=== PATIENT | male | born 1955 | race Caucasian/White ===

== ENCOUNTER 2020-11-15 14:39 | Inpatient (IN) | payer MEDICARE, SELFPAY ==
[2020-11-15] VITALS (19 sets, daily range): BP systolic 124–172; BP diastolic 77–96; PULSE 80–109; RESP 16–36; TEMP 36.6–38.9; O2SAT 79–96; BMI 28.8; BMI 29.2
--- NOTE | 2020-11-15 15:04 | RAD_ITS ---
STUDY: X-RAY CHEST REASON FOR EXAM: Male, 65 years old. CHEST PAIN cough TECHNIQUE: XR Chest 1 View COMPARISON: Prior comparison studies are not available for review at this time. FINDINGS: There is no demonstrated pleural abnormality. There are multiple overlying cardiac monitoring leads. Normal size heart. Normal mediastinum and josselyn. Normal visualized pulmonary arteries. There is atherosclerotic calcification of the aortic arch with tortuosity. There are diffuse degenerative changes of the visualized thoracic spine. There is degenerative osteoarthritis of the bilateral shoulders. There is no demonstrated abnormality of the visualized soft tissue structures of the upper abdomen. RAD/Chest 1 View (Portable) IMPRESSION: Bilateral pneumonia. Electronically Signed: Kostas Ibarra MD at 16:02 EDT , Service support ,
--- NOTE | 2020-11-15 15:04 | EKG12_ITS ---
Test Reason : Blood Pressure : / mmHG Vent. Rate : 098 BPM Atrial Rate : 098 BPM P-R Int : 148 ms QRS Dur : 098 ms QT Int : 364 ms P-R-T Axes : 022 -21 002 degrees QTc Int : 464 ms Sinus rhythm with Premature atrial complexes Voltage criteria for left ventricular hypertrophy Abnormal ECG Confirmed by HENNY KIM, VIVIAN ([id number]), editor farm journal TIMBO MCCLURE ([id number]) on 11/17/2020 10:35:58 AM Referred By: MICHAEL Confirmed By:VIVIAN INMAN MD
--- NOTE | 2020-11-15 15:05 | ED.VIS.DYS ---
HPI History of Present Illness Chief Complaint: Shortness of Breath Informant: patient and family Narrative Narrative: 65-year-old male brought to the emergency department with family out of concerns for COVID-19. Patient states that most everybody in his office has recently contracted COVID-19. He states that about 9 to 10 days ago he woke up feeling sick. States he spent most of last weekend in bed. He notes that food tasted horrible to him and he has not had much to eat or drink. He notes cough shortness of breath diarrhea nausea. He notes myalgias and headache. He was not vaccinated against COVID-19. [facility] Medical History (Updated 11/15/20 @ 17:[address] Dean Brown DO) Type 2 diabetes mellitus Home Medications glimepiride 4 mg PO DAILY 11/15/20 [History Last Taken Unknown] metformin 1,000 mg PO BID 11/15/20 [History Last Taken Unknown] Allergy/AdvReac Type Severity Reaction Status Date / Time No Known Allergies Allergy Verified 11/15/20 14:42 no surgical history Social History (Updated 11/15/20 @ 15:[address] Dean Brown, ) Smoking Status: Never smoker substance use type: does not use ROS ROS ED ROS Narrative Generalized fatigue dizziness Constitutional Constitutional ED: Reports sweats; Denies chills or weight loss Eyes Eyes: Denies change in vision or diplopia ENT ENT ED: Reports rhinorrhea and sore throat; Denies ear pain Cardiovascular Cardiovascular: Denies chest pain, orthopnea, palpitations or racing heartbeat Respiratory/Chest Respiratory/Chest: Reports cough, dyspnea and dyspnea on exertion; Denies orthopnea Gastrointestinal Gastrointestinal: Reports diarrhea and nausea; Denies abdominal pain or vomiting Genitourinary Genitourinary ED: Denies dysuria, hematuria or urinary frequency Musculoskeletal Musculoskeletal: Reports myalgias; Denies arthralgias Integumentary Denies abscess or rash Neurologic Neurologic: Reports headache(s); Denies weakness Psychiatric Psychiatric: Denies anxiety, depression, suicidal ideation or suicidal thoughts Endocrine Endocrinology: Denies polydipsia, polyphagia or polyuria Allergic/Immunologic Allergic/Immunologic ED: Denies mouth swelling, tongue swelling or urticaria EXAM Physical Exam Const Vital Signs: 11/15/20 14:39 11/15/20 15:37 11/15/20 15:41 Temperature 98.6 F 97.9 F Temperature Source Temporal Temporal Pulse Rate 91 96 Respiratory Rate 16 21 H Respiratory Effort Non-Labored Respiratory Depth Shallow Respiratory Pattern Tachypnea Blood Pressure 124/78 H 132/77 H Blood Pressure Mean 93 95 Pulse Ox 83 92 Oxygen Delivery Method Room Air Nasal Cannula Nasal Cannula Oxygen Flow Rate (L/min) 3 3 Fraction of Inspired Oxygen (FIO2) 11/15/20 16:00 11/15/20 17:00 11/15/20 17:30 Temperature 98 F 98.4 F Temperature Source Temporal Temporal Pulse Rate 95 97 101 H Respiratory Rate 21 H 32 H 27 H Respiratory Effort Respiratory Depth Respiratory Pattern Blood Pressure 133/78 H 136/80 H Blood Pressure Mean 96 98 Pulse Ox 93 90 87 Oxygen Delivery Method Nasal Cannula Nasal Cannula Nasal Cannula Oxygen Flow Rate (L/min) 4 4 Fraction of Inspired Oxygen (FIO2) 6 11/15/20 17:32 11/15/20 17:40 Temperature 100.1 F H Temperature Source Temporal Pulse Rate 100 98 Respiratory Rate 23 H 31 H Respiratory Effort Respiratory Depth Respiratory Pattern Blood Pressure 136/80 H Blood Pressure Mean 98 Pulse Ox 89 89 Oxygen Delivery Method Nasal Cannula Nasal Cannula Oxygen Flow Rate (L/min) 5 8 Fraction of Inspired Oxygen (FIO2) Positive well nourished and well developed General Appearance ED: well developed HEENT Reports normocephalic, head/scalp atraumatic and moist mucous membranes Eyes PERRL and EOMs intact bilaterally Neck no lymphadenopathy, supple and no JVD Resp clear to auscultation bilaterally Resp Narrative: Patient is slightly tachypneic. Cardio regular rate, regular rhythm and no murmurs GI normal to inspection, nondistended, normoactive bowel sounds and non-tender Palpation: soft Back/Spine no CVA tenderness and normal ROM Extremity normal to inspection General Extremety ED: Negative for edema General Extremity: Negative for edema Neuro oriented x3 and CN's II-XII intact bilaterally Sensorium / Orientation: alert Motor Exam: strength 5/5 throughout Psych mental status grossly normal Mood & Affect: Negative for depressed or tearful Skin no rashes or lesions noted and no wounds MDM MDM MDM Narrative Medical decision making narrative: White count 6.9. D-dimer elevated 1.02. His creatinine elevated off baseline at 1.41 with a BUN of 31. Troponin of 22. COVID-19 test is positive. CTA of the chest demonstrates diffuse bilateral pneumonia but no pulmonary embolism. Patient is satting 92% on 3 L. He received a dose of Decadron and a small fluid bolus. Plan will be admission into the hospital While awaiting admission the patient began to have desaturated stations. On 5 L he was only at 87% with good waveform. This in part is due to his disease process but also he seems to have a bit of poor tidal volume when at rest. He was switched over to high flow nasal cannula. Hospitalist was updated. Lab Data Attestation: I reviewed the patient's lab results. Labs: Laboratory Results - last 24 hr 11/15/20 11/15/20 11/15/20 15:20 15:20 15:20 WBC 6.9 RBC 4.80 Hgb 14.3 Hct 41.3 MCV 86.0 MCH 29.8 MCHC 34.6 RDW Std Deviation 40.7 RDW Coeff of Moses 12.8 Plt Count 208 MPV 10.2 Immature Gran % (Auto) 0.700 Neut % (Auto) 78.7 H Lymph % (Auto) 11.9 L [place] % (Auto) 8.3 Eos % (Auto) 0.1 Baso % (Auto) 0.3 Absolute Neuts (auto) 5.4 Absolute Lymphs (auto) 0.82 L Nucleated RBC % 0 Differential Comment SCANNED Platelet Estimate ADEQUATE RBC Morphology NORM C+C D-Dimer Quant (PE/DVT) 1.02 H* Sodium 134 L Potassium 4.2 Chloride 99 Carbon Dioxide 24.0 Anion Gap 11 BUN 31 H Creatinine 1.41 H Estim Creat Clear Calc 51.88 Est GFR (MDRD) Af Amer 65 Est GFR (MDRD) Non-Af 54 L BUN/Creatinine Ratio 22.0 H Glucose 176 H Lactic Acid Calcium 8.5 Total Bilirubin 0.70 AST 74 H ALT 39 Alkaline Phosphatase 47 Troponin I High Sens 22 Total Protein 7.8 Albumin 3.1 L Globulin 4.7 H Albumin/Globulin Ratio 0.7 L 11/15/20 15:20 WBC RBC Hgb Hct MCV MCH MCHC RDW Std Deviation RDW Coeff of Moses Plt Count MPV Immature Gran % (Auto) Neut % (Auto) Lymph % (Auto) [place] % (Auto) Eos % (Auto) Baso % (Auto) Absolute Neuts (auto) Absolute Lymphs (auto) Nucleated RBC % Differential Comment Platelet Estimate RBC Morphology D-Dimer Quant (PE/DVT) Sodium Potassium Chloride Carbon Dioxide Anion Gap BUN Creatinine Estim Creat Clear Calc Est GFR (MDRD) Af Amer Est GFR (MDRD) Non-Af BUN/Creatinine Ratio Glucose Lactic Acid 1.6 Calcium Total Bilirubin AST ALT Alkaline Phosphatase Troponin I High Sens Total Protein Albumin Globulin Albumin/Globulin Ratio Radiography Diagnostic Testing: Radiology Impression Chest X-Ray 11/15/20 15:04 IMPRESSION: Bilateral pneumonia. Electronically Signed: Kostas Ibarra MD at 16:02 EDT , Service support , Chest CTA 11/15/20 16:10 IMPRESSION: No demonstrated pulmonary embolism or arterial dissection. There is bilateral pneumonia. Electronically Signed: Kostas Ibarra MD at 16:45 EDT , Service support , EKG Initial EKG: Attestation: I personally reviewed and interpreted this EKG as follows: Comments: Sinus rhythm with a ventricular rate of 98 bpm. Discharge Plan Dx/Rx/DC Orders Clinical Impression: Acute hypoxemic respiratory failure due to COVID-19 Disposition Disposition: Acute Care [facility]
[2020-11-15 15:33] LABS: Absolute Lymphocyte Count 0.82 X10^3/uL (0.83-4.51); Absolute Neutrophil Count 5.4 X10^3/uL (2.0-7.7); Basophil# 0.02 X10^3/uL; Basophil% 0.3 % (0-1); Eosinophil# 0.01 X10^3/uL; Eosinophils% 0.1 % (0-5); Hematocrit 41.3 % (40-54); Hemoglobin 14.3 g/dL (13.0-16.5); Lymphocyte # 0.82 X10^3/ul (0.83-4.51); Lymphocyte % 11.9 % (19-41); Mean Corp Hgb Conc 34.6 g/dL (32-36); Mean Corpuscular Hgb 29.8 pg (27.0-32.0); Mean Platelet Vol. 10.2 fl (6.2-12.0); Monocyte# 0.57 X10^3/uL; Monocyte% 8.3 % (0-10); NRBC Flagged by Analyzer 0 % (0-5); Neutrophil % 78.7 % (47-70); POSITIVE COUNT YES; Platelet Count 208 K/mm3 (150-450); RBC Distribution Width CV 12.8 % (11.6-14.6); RBC Distribution Width SD 40.7 fl (35.1-43.9); White Blood Count 6.9 K/mm3 (4.4-11.0)
[2020-11-15 15:39] LABS: Differential Indicated SCAN CRITERIA MET
[2020-11-15 15:58] LABS: ALB/GLOB Ratio 0.7 RATIO (0.9-2.4); AST(SGOT) 74 U/L (15-37); Alanine Aminotransfer ALT/SGPT 39 U/L (16-61); Albumin, Serum 3.1 g/dL (3.2-5.0); Alkaline Phosphatase 47 U/L (45-117); Anion Gap 11 (5-15); BUN 31 mg/dL (7-18); Calcium,Total 8.5 mg/dL (8.5-10.1); Chloride 99 mmol/L (98-107); Creatinine, Serum 1.41 mg/dL (0.70-1.30); EST Glomerular Filtration Rate 54 mL/min (>60); Est Glom Filt Rate - Afr Amer 65 mL/min (>60); Estimated Creatinine Clearance 51.88 ml/min; Globulin 4.7 g/dL (2.2-4.2); Glucose 176 mg/dL (74-106); Potassium 4.2 mmol/L (3.5-5.1); Protein, Total 7.8 g/dL (6.4-8.2); Sodium Level 134 mmol/L (136-145); Troponin-I HS 22 pg/mL (3.0-78.0)
[2020-11-15 16:00] LABS: Lactic Acid 1.6 mmol/L (0.4-1.9)
[2020-11-15 16:08] LABS: D-Dimer Quantitative (DVT/PE) 1.02 FEU/ug/m (0.27-0.49)
--- NOTE | 2020-11-15 16:10 | CT_ITS ---
STUDY: CTA CHEST REASON FOR EXAM: Male, 65 years old. covid 19 pulmonary embolism. Pneumonia RADIATION DOSAGE (If Supplied By Facility): CTDIvol = ( 12.15 ) mGy, DLP = ( 487.95 ) mGycm TECHNIQUE: The examination was performed with and wo the intravenous administration of IV 100mL Isovue-370. Post-processing of the angiographic images was performed, with multiplanar reformation and 3D reconstruction. Individualized dose optimization techniques were used for this CT. COMPARISON: None. FINDINGS: Normal enhancement of the main pulmonary artery and right and left pulmonary arteries. Normal enhancement of the bilateral peripheral pulmonary arteries. There is no demonstrated pulmonary embolism. Normal thoracic aorta and visualized great vessels. There is no demonstrated aortic dissection. Normal heart and pericardium. Normal mediastinum. Normal hilar regions. Normal visualized trachea and bronchi. Bilateral pneumonia. Normal pulmonary parenchyma. There is No pneumothorax Normal chest wall structures. There are degenerative changes of thoracic spine. Normal visualized upper abdomen. CT/CTA Chest W/WO Contrast IMPRESSION: No demonstrated pulmonary embolism or arterial dissection. There is bilateral pneumonia. Electronically Signed: Kostas Ibarra MD at 16:45 EDT , Service support ,
[2020-11-15 16:16] LABS: Differential Comment SCANNED; Platelet Estimate ADEQUATE (ADEQ); Red Cell Morphology NORM C+C NORMAL (NORM C&C)
[2020-11-15] MEDS: dexAMETHasone 4 MG Tablet 6 MG PO (16:41)
--- NOTE | 2020-11-15 20:14 | HP.PCM_ITS ---
HPI - General General Date of Admission: 11/15/20 HPI Narrative FARRUKH YEE, is a 65 M who presents shortness of breath, cough, exertional dyspnea and easy fatigability. Found to be COVID-19 positive. Over the several hours has been in the emergency department and has been requiring increasing oxygen supplementation. Initially required 3 L and at that time was saturating at 92% now requiring 11 L and saturating at 88 to 89%. Several family members with COVID-19 infection as well. [facility] Medical History (Updated 11/15/20 @ 20:[address] Tabby Escobedo MD) Type 2 diabetes mellitus Home Medications glimepiride 4 mg PO DAILY 11/15/20 [History Last Taken Unknown] metformin 1,000 mg PO BID 11/15/20 [History Last Taken Unknown] Allergy/AdvReac Type Severity Reaction Status Date / Time No Known Allergies Allergy Verified 11/15/20 14:42 Social History (Updated 11/15/20 @ 15:[address] Dean Brown, DO) Smoking Status: Never smoker substance use type: does not use ROS ROS Narrative Denies any chest pain, denies any lower extremity swelling. All other systems reviewed and essentially negative. Vital Signs Vital Signs Vital Signs: 11/15/20 14:39 11/15/20 15:37 11/15/20 15:41 Temperature 37.0 C 36.6 C Temperature Source Temporal Temporal Pulse Rate 91 96 Respiratory Rate 16 21 H Respiratory Effort Non-Labored Respiratory Depth Shallow Respiratory Pattern Tachypnea Blood Pressure 124/78 H 132/77 H Blood Pressure Mean 93 95 Pulse Ox 83 92 Oxygen Delivery Method Room Air Nasal Cannula Nasal Cannula Oxygen Flow Rate (L/min) 3 3 Fraction of Inspired Oxygen (FIO2) 11/15/20 16:00 11/15/20 17:00 11/15/20 17:30 Temperature 36.6 C 36.9 C Temperature Source Temporal Temporal Pulse Rate 95 97 101 H Respiratory Rate 21 H 32 H 27 H Respiratory Effort Respiratory Depth Respiratory Pattern Blood Pressure 133/78 H 136/80 H Blood Pressure Mean 96 98 Pulse Ox 93 90 87 Oxygen Delivery Method Nasal Cannula Nasal Cannula Nasal Cannula Oxygen Flow Rate (L/min) 4 4 Fraction of Inspired Oxygen (FIO2) 6 11/15/20 17:32 11/15/20 17:40 11/15/20 17:50 Temperature 37.8 C H Temperature Source Temporal Pulse Rate 100 98 101 H Respiratory Rate 23 H 31 H 27 H Respiratory Effort Respiratory Depth Respiratory Pattern Blood Pressure 136/80 H Blood Pressure Mean 98 Pulse Ox 89 89 92 Oxygen Delivery Method Nasal Cannula Nasal Cannula Nasal Cannula Oxygen Flow Rate (L/min) 5 8 9 Fraction of Inspired Oxygen (FIO2) 11/15/20 18:20 11/15/20 18:40 11/15/20 18:53 Temperature Temperature Source Pulse Rate 109 H 100 104 H Respiratory Rate 36 H 27 H 26 H Respiratory Effort Respiratory Depth Respiratory Pattern Blood Pressure Blood Pressure Mean Pulse Ox 79 91 89 Oxygen Delivery Method Nasal Cannula Nasal Cannula Nasal Cannula Oxygen Flow Rate (L/min) 9 15 11 Fraction of Inspired Oxygen (FIO2) 11/15/20 19:15 11/15/20 19:20 Temperature Temperature Source Pulse Rate 103 H Respiratory Rate 22 H Respiratory Effort Respiratory Depth Respiratory Pattern Blood Pressure Blood Pressure Mean Pulse Ox 90 94 Oxygen Delivery Method Nasal Cannula Oxygen Flow Rate (L/min) 15 Fraction of Inspired Oxygen (FIO2) 88 Weight Weight: 86.183 kg Body Mass Index (BMI) 28.8 Physical Exam Narrative General. Middle-aged man, not significantly acutely ill-appearing, anxious appearing, dyspneic at rest HEENT. Oral mucosa slightly dry, no conjunctival pallor. Neck. Supple. Heart. First and second heart sounds heard no murmurs. Lungs. Slightly harsh breath sounds, bronchial breath sounds and what appears to be pleural rubs as well. Abdomen. Moves with respiration, nontender. Extremities. No pedal edema. PHYSICIANS ASSISTANT. Conscious and alert, oriented x3. Cranial nerves II through XII grossly intact. Skin. No rash noted Results Lab / Micro Data Result Diagrams: 11/15/20 15:20 11/15/20 15:20 Labs: Laboratory Results - last 24 hr 11/15/20 15:20: WBC 6.9, RBC 4.80, Hgb 14.3, Hct 41.3, MCV 86.0, MCH 29.8, MCHC 34.6, RDW Std Deviation 40.7, RDW Coeff of Moses 12.8, Plt Count 208, MPV 10.2, Immature Gran % (Auto) 0.700, Neut % (Auto) 78.7 H, Lymph % (Auto) 11.9 L, [place] % (Auto) 8.3, Eos % (Auto) 0.1, Baso % (Auto) 0.3, Absolute Neuts (auto) 5.4, Absolute Lymphs (auto) 0.82 L, Nucleated RBC % 0, Differential Comment SCANNED, Platelet Estimate ADEQUATE, RBC Morphology NORM C+C 11/15/20 15:20: D-Dimer Quant (PE/DVT) 1.02 H* 11/15/20 15:20: Sodium 134 L, Potassium 4.2, Chloride 99, Carbon Dioxide 24.0, Anion Gap 11, BUN 31 H, Creatinine 1.41 H, Estim Creat Clear Calc 51.88, Est GFR (MDRD) Af Amer 65, Est GFR (MDRD) Non-Af 54 L, BUN/Creatinine Ratio 22.0 H, Glucose 176 H, Calcium 8.5, Total Bilirubin 0.70, AST 74 H, ALT 39, Alkaline Phosphatase 47, Troponin I High Sens 22, Total Protein 7.8, Albumin 3.1 L, Globulin 4.7 H, Albumin/Globulin Ratio 0.7 L 11/15/20 15:20: Lactic Acid 1.6 Micro: Microbiology 11/15/20 15:40 Nasal Secretion SARS-CoV-2 Antigen (Rapid) - Final SARS-CoV-2 (COVID 19) Radiology Impression Chest X-Ray 11/15/20 15:04 IMPRESSION: Bilateral pneumonia. Electronically Signed: Kostas Ibarra MD at 16:02 EDT , Service support , Chest CTA 11/15/20 16:10 IMPRESSION: No demonstrated pulmonary embolism or arterial dissection. There is bilateral pneumonia. Electronically Signed: Kostas Ibarra MD at 16:45 EDT , Service support , Assessment & Plan Assessment/Plan (1) Pneumonia due to COVID-19 virus: PLAN: Will start on remdesivir and dexamethasone. Consult infectious disease. Likely would benefit from baricitinib. Placed on telemetry. Monitor closely. (2) Acute hypoxemic respiratory failure due to COVID-19: PLAN: Rapidly worsening respiratory failure. Will start on CPAP/BiPAP or airvo. (3) Type 2 diabetes mellitus: PLAN: Continue Metformin. Hold on glimepiride. Start on insulin sliding scale. Insulin requirements likely to increase with use of steroids. Monitor with Accu-Cheks before meals and at bedtime. Charges/Coding Visit Charges Inpatient E&M: 69846 Init Hosp L3
[2020-11-15] MEDS: Acetaminophen 325 MG Tablet 650 MG PO (20:34)
[2020-11-15 21:15] LABS: Procalcitonin 0.32 ng/mL (0.00-0.09)
[2020-11-15] MEDS: metFORMIN HCl 1,000 MG Tablet 1000 MG PO (21:49)
[2020-11-15] MEDS: 0.9% Saline Lock 10 ML Syringe IV (21:49)
[2020-11-15] MEDS: Famotidine 20 MG Tablet PO (21:49)
[2020-11-15 22:21] LABS: Bedside Glucose 206 mg/dL (70-110)
--- NOTE | 2020-11-15 23:56 | PCS.PANDOC ---
PANDEMIC DOCUMENTATION INITIATED: Date: 10/13/2020 Time: 190
[2020-11-16] VITALS (16 sets, daily range): BP systolic 125–157; BP diastolic 65–94; PULSE 76–97; RESP 20–28; TEMP 36.1–37.1; O2SAT 90–96
[2020-11-16 06:24] LABS: Absolute Lymphocyte Count 0.83 X10^3/uL (0.83-4.51); Absolute Neutrophil Count 7.7 X10^3/uL (2.0-7.7); Basophil# 0.02 X10^3/uL; Basophil% 0.2 % (0-1); Hematocrit 42.8 % (40-54); Hemoglobin 14.6 g/dL (13.0-16.5); Lymphocyte # 0.83 X10^3/ul (0.83-4.51); Mean Corp Hgb Conc 34.1 g/dL (32-36); Mean Corpuscular Hgb 29.6 pg (27.0-32.0); Mean Corpuscular Volume 86.6 fL (80-94); Mean Platelet Vol. 10.1 fl (6.2-12.0); Monocyte# 0.56 X10^3/uL; Monocyte% 6.1 % (0-10); NRBC Flagged by Analyzer 0 % (0-5); Neutrophil # 7.68 X10^3/uL (2.7-7.7); Neutrophil % 83.6 % (47-70); Platelet Count 263 K/mm3 (150-450); Red Blood Count 4.94 M/mm3 (4.6-6.2); White Blood Count 9.2 K/mm3 (4.4-11.0)
[2020-11-16] MEDS: Insulin Lispro 100 UNIT/ML INSULN.PEN SC ×3 (06:37→17:42)
[2020-11-16 06:56] LABS: Bedside Glucose 262 mg/dL (70-110)
[2020-11-16 07:01] LABS: International Normalized Ratio 1.2; Prothrombin Time (Protime)PT. 14.4 SECONDS (11.7-14.9)
[2020-11-16 07:16] LABS: D-Dimer Quantitative (DVT/PE) 1.07 FEU/ug/m (0.27-0.49)
[2020-11-16 07:41] LABS: ALB/GLOB Ratio 0.6 RATIO (0.9-2.4); AST(SGOT) 65 U/L (15-37); Alanine Aminotransfer ALT/SGPT 39 U/L (16-61); Albumin, Serum 2.6 g/dL (3.2-5.0); Alkaline Phosphatase 46 U/L (45-117); Anion Gap 9 (5-15); BUN 29 mg/dL (7-18); Calcium,Total 8.6 mg/dL (8.5-10.1); Chloride 104 mmol/L (98-107); Creatinine, Serum 1.16 mg/dL (0.70-1.30); EST Glomerular Filtration Rate 68 mL/min (>60); Est Glom Filt Rate - Afr Amer 82 mL/min (>60); Estimated Creatinine Clearance 63.06 ml/min; Ferritin 4416 ng/mL (26-388); Globulin 4.7 g/dL (2.2-4.2); Glucose 279 mg/dL (74-106); LDH 949 U/L (87-241); Potassium 4.2 mmol/L (3.5-5.1); Protein, Total 7.3 g/dL (6.4-8.2); Sodium Level 137 mmol/L (136-145)
[2020-11-16] MEDS: Famotidine 20 MG Tablet PO ×2 (09:42→21:08)
[2020-11-16] MEDS: Enoxaparin 40 MG/0.4 ML Syringe SC (09:43)
[2020-11-16] MEDS: dexAMETHasone 10 MG/ML Vial 6 MG IV (09:46)
[2020-11-16] MEDS: 0.9% Saline Lock 10 ML Syringe IV ×2 (09:47→21:08)
--- NOTE | 2020-11-16 12:43 | CON.PCM.CC_ITS ---
Assessment & Plan Assessment/Plan (1) Pneumonia due to COVID-19 virus: (2) Acute hypoxemic respiratory failure due to COVID-19: (3) Type 2 diabetes mellitus: PLAN: RECOMMENDATIONS: 1. Consult ID for possible PITA therapy 2. Add insulin to help with hyperglycemia 3. Diuresis as tolerated 4. Encourage prone positioning 5. Monitor LFT while on Remdesivir and potential PITA therapy IMPRESSIONS: 1. Acute hypoxic respiratory failure secondary to COVID-19 Patient with rapidly escalating oxygen requirements. Did confirm the pa halina is a full code. Patient is appropriately on remdesivir and Decadron therapy. Patient may be a candidate for PITA therapy, but this has to be ordered by infectious disease. They are consulted. Continue to support oxygen as necessary. Prone positioning will be helpful. Possible addition of codeine if patient requires BiPAP therapy in an effort to avoid pneumomediastinum. Will need to monitor LFTs while on Remdesivir. 2. Diabetes mellitus/overweight/unvaccinated status Complicates care, management, recovery and prognosis. We will have to watch blood sugars closely. Clinical suspicion that basal insulin will be needed in the next 24 to 48 hours. HPI Consult Data Date of Consult: 11/16/20 HPI Narrative HPI Narrative: FARRUKH YEE is a 65 M, with past medical history listed below, who presents to [facility] on 11/15[facility] secondary to concerns for COVID-19. Patient states that he has been feeling sick for approximately 8 days prior to presentation. Patient states that he has had fevers, body aches and some mild nausea with vomiting in the morning. Patient also stated that food had changed in taste. Patient had had cough, shortness of breath and loose bowel movements. Patient has not been vaccinated against COVID-19. Patient denies any previous pulmonary or cardiac history and states he is compliant with his diabetes medications. In the ER, patient was afebrile, but tachypneic at 32 breaths/min. Patient did require 8 L nasal cannula to maintain saturations. Laboratory data was relatively unremarkable except for a mildly elevated D-dimer of 1.02, creatinine of 1.4, glucose of 176, AST of 74 and a white blood cell count of 6.9 with 11.9% eosinophils. Chest x-ray showed bilateral pneumonia and this was followed up with a CTA of the chest showing bilateral groundglass opacities with no PE. Patient was given a small fluid bolus and a dose of Decadron and admitted to the hospital. Since being on MedSurg, patient has been advanced to 80% by Airvo. Patient states that he feels subjectively improved from presentation. Patient is still having some body aches, but dyspnea has resolved. Patient has had some loose bowel movements, but no nausea or vomiting. Patient does not report any previous pulmonary or cardiac history. Patient does follow with his PCP regularly. 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 Patient estimates he has had symptoms for approximately 8 days. Review of systems otherwise negative from a constitutional, HEENT, respiratory, cardiovascular, GI, genitourinary, musculoskeletal, skin, neurologic, psychiatric and hematologic system unless stated above. [facility] Medical History Type 2 diabetes mellitus Home Medications glimepiride 4 mg PO DAILY 11/15/20 [History Last Taken 11/13/20] metformin 1,000 mg PO BID 11/15/20 [History Last Taken 11/15/20] Allergy/AdvReac Type Severity Reaction Status Date / Time No Known Allergies Allergy Verified 11/15/20 14:42 Social History Smoking Status: Never smoker substance use type: does not use ROS ROS Narrative See HPI Physical Exam Const alert and oriented x3 Constitutional Narrative: Lying in the prone position with a Airvo in place General Appearance: cooperative, well developed, in distress Positive for mild and anxious Nutritional Appearance: overweight HEENT normocephalic, head/scalp atraumatic and moist oral mucous membranes Eyes PERRL and EOMs intact bilaterally Neck full ROM and no lymphadenopathy Chest inspection of chest normal Chest: symmetrical chest wall rise; Negative for crepitus Resp no use of accessory muscles Resp Narrative: Mild conversational dyspnea Auscultation: diminished lung sounds; Negative for rales, rhonchi or wheezes Percussion: Negative for dullness Cardio regular rate, regular rhythm, S1 normal heart sound, S2 normal heart sound, no murmurs, no rub and no gallops GI normal to inspection, nondistended, normoactive bowel sounds no CVA tenderness Extremity no clubbing, cyanosis or edema Skin no rashes or lesions noted Neuro oriented x3, CN's II-XII intact bilaterally, moves all extremities and no focal motor deficits Psych cooperative and affect normal Lab / Micro Data Result Diagrams: 11/16/20 04:59 11/16/20 04:59 Labs: Laboratory Results - last 24 hr 11/15/20 15:20: WBC 6.9, RBC 4.80, Hgb 14.3, Hct 41.3, MCV 86.0, MCH 29.8, MCHC 34.6, RDW Std Deviation 40.7, RDW Coeff of Moses 12.8, Plt Count 208, MPV 10.2, Immature Gran % (Auto) 0.700, Neut % (Auto) 78.7 H, Lymph % (Auto) 11.9 L, [place] % (Auto) 8.3, Eos % (Auto) 0.1, Baso % (Auto) 0.3, Absolute Neuts (auto) 5.4, Absolute Lymphs (auto) 0.82 L, Nucleated RBC % 0, Differential Comment SCANNED, Platelet Estimate ADEQUATE, RBC Morphology NORM C+C 11/15/20 15:20: D-Dimer Quant (PE/DVT) 1.02 H* 11/15/20 15:20: Sodium 134 L, Potassium 4.2, Chloride 99, Carbon Dioxide 24.0, Anion Gap 11, BUN 31 H, Creatinine 1.41 H, Estim Creat Clear Calc 51.88, Est GFR (MDRD) Af Amer 65, Est GFR (MDRD) Non-Af 54 L, BUN/Creatinine Ratio 22.0 H, Glucose 176 H, Calcium 8.5, Total Bilirubin 0.70, AST 74 H, ALT 39, Alkaline Phosphatase 47, Troponin I High Sens 22, Total Protein 7.8, Albumin 3.1 L, Globulin 4.7 H, Albumin/Globulin Ratio 0.7 L 11/15/20 15:20: Lactic Acid 1.6 11/15/20 15:20: Procalcitonin 0.32 H 11/15/20 21:48: POC Glucose 206 H 11/16/20 04:59: WBC 9.2, RBC 4.94, Hgb 14.6, Hct 42.8, MCV 86.6, MCH 29.6, MCHC 34.1, RDW Std Deviation 41.0, RDW Coeff of Moses 13.0, Plt Count 263, MPV 10.1, Immature Gran % (Auto) 1.100 H, Neut % (Auto) 83.6 H, Lymph % (Auto) 9.0 L, [place] % (Auto) 6.1, Eos % (Auto) 0.0, Baso % (Auto) 0.2, Absolute Neuts (auto) 7.7, Absolute Lymphs (auto) 0.83, Nucleated RBC % 0 11/16/20 04:59: Sodium 137, Potassium 4.2, Chloride 104, Carbon Dioxide 24.0, Anion Gap 9, BUN 29 H, Creatinine 1.16, Estim Creat Clear Calc 63.06, Est GFR (MDRD) Af Amer 82, Est GFR (MDRD) Non-Af 68, BUN/Creatinine Ratio 25.0 H, Glucose 279 H, Calcium 8.6, Ferritin 4416 H, Total Bilirubin 0.60, AST 65 H, ALT 39, Alkaline Phosphatase 46, Lactate Dehydrogenase 949 H, C-React Prot Ext Range 144.00 H, Total Protein 7.3, Albumin 2.6 L, Globulin 4.7 H, Albumin/Globulin Ratio 0.6 L 11/16/20 04:59: PT 14.4, INR 1.2, D-Dimer Quant (PE/DVT) 1.07 H* 11/16/20 06:31: POC Glucose 262 H Micro: Microbiology 11/15/20 15:40 Nasal Secretion SARS-CoV-2 Antigen (Rapid) - Final SARS-CoV-2 (COVID 19) Radiology Impression Chest X-Ray 11/15/20 15:04 IMPRESSION: Bilateral pneumonia. Electronically Signed: Kostas Ibarra MD at 16:02 EDT , Service support , Chest CTA 11/15/20 16:10 IMPRESSION: No demonstrated pulmonary embolism or arterial dissection. There is bilateral pneumonia. Electronically Signed: Kostas Ibarra MD at 16:45 EDT , Service support , Charges/Coding Visit Charges Inpatient E&M: 76668 Init Hosp L3
[2020-11-16 13:20] LABS: Bedside Glucose 239 mg/dL (70-110)
--- NOTE | 2020-11-16 13:27 | PCM.PN.HOSP ---
Subjective Subjective On Airvo. Short of breath with movement. Objective Data Objective Data Vital Signs: Vital Signs Temp Pulse Resp BP Pulse Ox 36.6 C 94 20 H 157/88 H 91 11/16/20 11:58 11/16/20 11:58 11/16/20 11:58 11/16/20 11:58 11/16/20 11:58 Oxygen Flow Rate (L/min) 50 Oxygen Delivery Method Airvo Weight: 87.3 kg Body Mass Index (BMI) 29.2 Intake & Output: Intake and Output for Last 24 Hours 11/14/20 11/15/20 11/16/20 23:59 23:59 23:59 Intake Total 750 / 750 400 / 400 Output Total 300 / 300 250 / 250 Balance 450 / 450 150 / 150 Lab / Micro Data Result Diagrams: 11/16/20 04:59 11/16/20 04:59 Labs: Laboratory Results - last 24 hr 11/15/20 15:20: WBC 6.9, RBC 4.80, Hgb 14.3, Hct 41.3, MCV 86.0, MCH 29.8, MCHC 34.6, RDW Std Deviation 40.7, RDW Coeff of Moses 12.8, Plt Count 208, MPV 10.2, Immature Gran % (Auto) 0.700, Neut % (Auto) 78.7 H, Lymph % (Auto) 11.9 L, [place] % (Auto) 8.3, Eos % (Auto) 0.1, Baso % (Auto) 0.3, Absolute Neuts (auto) 5.4, Absolute Lymphs (auto) 0.82 L, Nucleated RBC % 0, Differential Comment SCANNED, Platelet Estimate ADEQUATE, RBC Morphology NORM C+C 11/15/20 15:20: D-Dimer Quant (PE/DVT) 1.02 H* 11/15/20 15:20: Sodium 134 L, Potassium 4.2, Chloride 99, Carbon Dioxide 24.0, Anion Gap 11, BUN 31 H, Creatinine 1.41 H, Estim Creat Clear Calc 51.88, Est GFR (MDRD) Af Amer 65, Est GFR (MDRD) Non-Af 54 L, BUN/Creatinine Ratio 22.0 H, Glucose 176 H, Calcium 8.5, Total Bilirubin 0.70, AST 74 H, ALT 39, Alkaline Phosphatase 47, Troponin I High Sens 22, Total Protein 7.8, Albumin 3.1 L, Globulin 4.7 H, Albumin/Globulin Ratio 0.7 L 11/15/20 15:20: Lactic Acid 1.6 11/15/20 15:20: Procalcitonin 0.32 H 11/15/20 21:48: POC Glucose 206 H 11/16/20 04:59: WBC 9.2, RBC 4.94, Hgb 14.6, Hct 42.8, MCV 86.6, MCH 29.6, MCHC 34.1, RDW Std Deviation 41.0, RDW Coeff of Moses 13.0, Plt Count 263, MPV 10.1, Immature Gran % (Auto) 1.100 H, Neut % (Auto) 83.6 H, Lymph % (Auto) 9.0 L, [place] % (Auto) 6.1, Eos % (Auto) 0.0, Baso % (Auto) 0.2, Absolute Neuts (auto) 7.7, Absolute Lymphs (auto) 0.83, Nucleated RBC % 0 11/16/20 04:59: Sodium 137, Potassium 4.2, Chloride 104, Carbon Dioxide 24.0, Anion Gap 9, BUN 29 H, Creatinine 1.16, Estim Creat Clear Calc 63.06, Est GFR (MDRD) Af Amer 82, Est GFR (MDRD) Non-Af 68, BUN/Creatinine Ratio 25.0 H, Glucose 279 H, Calcium 8.6, Ferritin 4416 H, Total Bilirubin 0.60, AST 65 H, ALT 39, Alkaline Phosphatase 46, Lactate Dehydrogenase 949 H, C-React Prot Ext Range 144.00 H, Total Protein 7.3, Albumin 2.6 L, Globulin 4.7 H, Albumin/Globulin Ratio 0.6 L 11/16/20 04:59: PT 14.4, INR 1.2, D-Dimer Quant (PE/DVT) 1.07 H* 11/16/20 06:31: POC Glucose 262 H 11/16/20 12:37: POC Glucose 239 H Micro: Microbiology 11/15/20 15:40 Nasal Secretion SARS-CoV-2 Antigen (Rapid) - Final SARS-CoV-2 (COVID 19) Radiography Diagnostic Testing: Radiology Impression Chest X-Ray 11/15/20 15:04 IMPRESSION: Bilateral pneumonia. Electronically Signed: Kostas Ibarra MD at 16:02 EDT , Service support , Chest CTA 11/15/20 16:10 IMPRESSION: No demonstrated pulmonary embolism or arterial dissection. There is bilateral pneumonia. Electronically Signed: Kostas Ibarra MD at 16:45 EDT , Service support , Physical Exam Const alert HEENT head/scalp atraumatic Head and Scalp: normocephalic Resp normal respiratory effort, no retractions, no use of accessory muscles and clear to auscultation bilaterally Cardio regular rate, regular rhythm, S1 normal heart sound and S2 normal heart sound GI normal to inspection, nondistended, normoactive bowel sounds, soft to palpation, non-tender and non-distended Assessment & Plan Assessment/Plan (1) Pneumonia due to COVID-19 virus: (2) Acute hypoxemic respiratory failure due to COVID-19: PLAN: 1. Acute hypoxic respiratory failure Secondary to COVID-19 Currently on air Vo. The patient do prone positioning and he was very labored in regards of breathing she is doing just that though his oxygen did not drop lower than 90%. I discussed with the patient that he is at risk for further decompensation. He is open to intubation Encourage patient to prone. 2. Acute COVID-19 pneumonia Date of onset was 11/08 Infectious disease on consultation Continue with dexamethasone and remdesivir 3. Diabetes mellitus type 2 Exacerbated due to the acute physiologic stress as well as dexamethasone Continue SSI 4. VTE prophylaxis with enoxaparin 5. CODE STATUS: Addressed with patient. Patient wants to be full code. 6. Prognosis: Guarded Charges/Coding Visit Charges Inpatient E&M: 22891 Subs Hosp L2
[2020-11-16 18:10] LABS: Bedside Glucose 250 mg/dL (70-110)
[2020-11-16 22:56] LABS: Bedside Glucose 295 mg/dL (70-110)
[2020-11-17] VITALS (35 sets, daily range): BP systolic 134–168; BP diastolic 71–103; PULSE 69–97; RESP 12–30; TEMP 36.1–38.5; O2SAT 90–98
--- NOTE | 2020-11-17 03:17 | CPS ---
PT IS IN THE prone position with non-rebreather mask over Airvo. Pt won't let RT increase flow to 60L which is the next step to keep sats 90 and above. RN aware.
[2020-11-17] MEDS: Insulin Lispro 100 UNIT/ML INSULN.PEN SC ×4 (06:07→21:55)
[2020-11-17 06:16] LABS: Bedside Glucose 256 mg/dL (70-110)
[2020-11-17 06:22] LABS: Absolute Lymphocyte Count 0.68 X10^3/uL (0.83-4.51); Absolute Neutrophil Count 10.3 X10^3/uL (2.0-7.7); Basophil# 0.03 X10^3/uL; Basophil% 0.2 % (0-1); Hematocrit 40.5 % (40-54); Hemoglobin 13.5 g/dL (13.0-16.5); Lymphocyte # 0.68 X10^3/ul (0.83-4.51); Lymphocyte % 5.7 % (19-41); Mean Corp Hgb Conc 33.3 g/dL (32-36); Mean Corpuscular Volume 86.9 fL (80-94); Mean Platelet Vol. 10.3 fl (6.2-12.0); Monocyte# 0.79 X10^3/uL; Monocyte% 6.6 % (0-10); NRBC Flagged by Analyzer 0 % (0-5); Neutrophil % 85.8 % (47-70); Platelet Count 300 K/mm3 (150-450); RBC Distribution Width SD 41.1 fl (35.1-43.9); Red Blood Count 4.66 M/mm3 (4.6-6.2)
[2020-11-17 06:51] LABS: ALB/GLOB Ratio 0.6 RATIO (0.9-2.4); AST(SGOT) 65 U/L (15-37); Alanine Aminotransfer ALT/SGPT 38 U/L (16-61); Albumin, Serum 2.4 g/dL (3.2-5.0); Alkaline Phosphatase 50 U/L (45-117); Anion Gap 7 (5-15); BUN 31 mg/dL (7-18); BUN/Creat Ratio 30.1 RATIO (10-20); Calcium,Total 8.3 mg/dL (8.5-10.1); Chloride 104 mmol/L (98-107); Creatinine, Serum 1.03 mg/dL (0.70-1.30); EST Glomerular Filtration Rate 78 mL/min (>60); Est Glom Filt Rate - Afr Amer 94 mL/min (>60); Estimated Creatinine Clearance 71.02 ml/min; Globulin 4.2 g/dL (2.2-4.2); Glucose 282 mg/dL (74-106); Potassium 4.1 mmol/L (3.5-5.1); Protein, Total 6.6 g/dL (6.4-8.2); Sodium Level 136 mmol/L (136-145)
[2020-11-17] MEDS: dexAMETHasone 10 MG/ML Vial 6 MG IV (07:56)
[2020-11-17] MEDS: Enoxaparin 40 MG/0.4 ML Syringe SC ×2 (07:56→20:17)
[2020-11-17] MEDS: Famotidine 20 MG Tablet PO ×2 (07:56→20:17)
[2020-11-17] MEDS: Acetaminophen 325 MG Tablet 650 MG PO (07:57)
[2020-11-17] MEDS: 0.9% Saline Lock 10 ML Syringe IV (07:57)
--- NOTE | 2020-11-17 08:03 | NURSING ---
pt in bed and with sitting up for meds pt desats to 79% pt laid back down and on lt side and 100%nrb placed as well as airvo to see if would help. pt very slow to recover. sob obs with desat. rr 32. talked with pt over real probability of needing bipap at the very least and maybe intubation. pt aware and worried over being claustraphobic sorta at times tylenol given for fever
--- NOTE | 2020-11-17 08:31 | PCM.PN.HOSP ---
Subjective Subjective worsening with Airvo. So, was put on NRB in addition to the Airvo with 93% FiO2. Expressed to RN reservations about BiPAP bc of claustrophobia. Objective Data Objective Data Vital Signs: Vital Signs Temp Pulse Resp BP Pulse Ox 38.5 C H 90 28 H 168/80 H 91 11/17/20 07:45 11/17/20 07:50 11/17/20 07:50 11/17/20 07:45 11/17/20 07:50 Oxygen Flow Rate (L/min) 50 Oxygen Delivery Method Airvo Weight: 87.3 kg Body Mass Index (BMI) 29.2 Intake & Output: Intake and Output for Last 24 Hours 11/15/20 11/16/20 11/17/20 23:59 23:59 23:59 Intake Total 750 / 750 1300 / 1300 Output Total 300 / 300 1050 / 1050 300 / 300 Balance 450 / 450 250 / 250 -300 / -300 Lab / Micro Data Result Diagrams: 11/17/20 05:30 11/17/20 05:30 Labs: Laboratory Results - last 24 hr 11/16/20 12:37: POC Glucose 239 H 11/16/20 17:38: POC Glucose 250 H 11/16/20 21:07: POC Glucose 295 H 11/17/20 05:30: WBC 12.0 H, RBC 4.66, Hgb 13.5, Hct 40.5, MCV 86.9, MCH 29.0, MCHC 33.3, RDW Std Deviation 41.1, RDW Coeff of Moses 13.0, Plt Count 300, MPV 10.3, Immature Gran % (Auto) 1.700 H, Neut % (Auto) 85.8 H, Lymph % (Auto) 5.7 L, [place] % (Auto) 6.6, Eos % (Auto) 0.0, Baso % (Auto) 0.2, Absolute Neuts (auto) 10.3 H, Absolute Lymphs (auto) 0.68 L, Nucleated RBC % 0 11/17/20 05:30: Sodium 136, Potassium 4.1, Chloride 104, Carbon Dioxide 25.0, Anion Gap 7, BUN 31 H, Creatinine 1.03, Estim Creat Clear Calc 71.02, Est GFR (MDRD) Af Amer 94, Est GFR (MDRD) Non-Af 78, BUN/Creatinine Ratio 30.1 H, Glucose 282 H, Calcium 8.3 L, Total Bilirubin 0.70, AST 65 H, ALT 38, Alkaline Phosphatase 50, Total Protein 6.6, Albumin 2.4 L, Globulin 4.2, Albumin/Globulin Ratio 0.6 L 11/17/20 06:05: POC Glucose 256 H Micro: Microbiology 11/15/20 15:40 Nasal Secretion SARS-CoV-2 Antigen (Rapid) - Final SARS-CoV-2 (COVID 19) Physical Exam Const Constitutional Narrative: uncomfortable. tachypneic. lying on left side on Airvo Resp normal respiratory effort, no retractions, no use of accessory muscles and clear to auscultation bilaterally Cardio regular rate, regular rhythm, S1 normal heart sound and S2 normal heart sound GI normal to inspection, nondistended, normoactive bowel sounds, soft to palpation, non-tender and non-distended Extremity normal to inspection Skin no rashes or lesions noted and no wounds Neuro Sensorium / Orientation: awake and alert Psych Mood & Affect: anxious Assessment & Plan Assessment/Plan (1) Pneumonia due to COVID-19 virus: (2) Acute hypoxemic respiratory failure due to COVID-19: PLAN: 1. Acute hypoxic respiratory failure Secondary to COVID-19 Currently on air Vo AND NRB. Worsening overall. Patient will need BiPAP. Patient had been concerned about claustrophobia with BiPAP. I told him that he needs to try it. I acknowledge that skin to feel different but he needs to work with us to help try to save him. If that does not work then he will need to be intubated. He is informed of all this. I discussed with the patient that he is at risk for further decompensation. He is open to intubation Will transfer to the ICU. Dr. Barnes is aware. 2. Acute COVID-19 pneumonia Date of onset was 11/08 Infectious disease on consultation Continue with dexamethasone and remdesivir Unvaccinated 3. Diabetes mellitus type 2 Exacerbated due to the acute physiologic stress as well as dexamethasone Continue SSI Will hold off on adding glargine since he will be currently NPO. 4. VTE prophylaxis with enoxaparin 5. CODE STATUS: Addressed with patient. Patient wants to be full code. 6. Prognosis: Guarded Charges/Coding Visit Charges Inpatient E&M: 76980 Subs Hosp L3
--- NOTE | 2020-11-17 09:08 | NURSING ---
placed on biPaP being transferred to ICU6
--- NOTE | 2020-11-17 09:23 | NURSING ---
pt bailey bipap well so far and sats 97% on 85%. yady called and updated on pts condition and transfer to icu
--- NOTE | 2020-11-17 10:38 | PN.CC_ITS ---
Assessment & Plan Assessment/Plan (1) Pneumonia due to COVID-19 virus: (2) Acute hypoxemic respiratory failure due to COVID-19: (3) Type 2 diabetes mellitus: PLAN: RECOMMENDATIONS: 1. Continue BiPAP therapy and wean FiO2 for saturations greater than 90%. 2. Continue remdesivir to complete 5-day treatment course. Monitor liver and renal function accordingly. 3. Continue Decadron to complete 10-day treatment course. 4. Continue Lovenox twice daily. 5. ID consultation pending for possible Kevin inhibitor therapy. 6. Patient to remain n.p.o. for now. 7. Awake prone positioning was encouraged. IMPRESSIONS: 1. Acute hypoxic respiratory failure secondary to COVID-19 Given escalating oxygen requirements, the patient was transferred to the ICU on the morning of November 17. Plan to continue current supportive measures including continuous noninvasive positive pressure ventilatory support. Wean FiO2 to maintain oxygen saturations at or above 90%. The patient will be continued on remdesivir as ordered along with Decadron to complete a 10-day treatment course. ID consultation is currently pending for consideration of Kevin inhibitor therapy. Awake prone positioning was encouraged. Intermittent use of diuretics can be utilized to maintain euvolemic state. The patient is to remain n.p.o. for now. 2. Diabetes mellitus/overweight/unvaccinated status Complicates care, management, recovery and prognosis. Continue sliding scale insulin coverage. TIME: 35 minutes of critical care time, independent of procedures, was spent addressing the patient's acute hypoxemic respiratory failure secondary to COVID- 19 pneumonia, review of all data and collaboration with care team. ([id number]) Subjective Subjective The patient was seen and examined at the bedside this morning. Events from the last 24 hours have been reviewed. The patient did develop a fever this morning to 101.3 ?F. He remains otherwise hemodynamically stable. Unfortunately, the patient was transferred to the medical intensive care unit this morning with worsening in his respiratory status. He is now requiring continuous BiPAP support. The patient remains on remdesivir, Decadron and twice daily Lovenox. Objective Data Objective Data The patient's most recent lab work, culture data and imaging studies have all been personally reviewed. Rapid coronavirus antigen testing was positive on November 15. Blood cultures are pending. Vital Signs: Vital Signs Temp Pulse Resp BP Pulse Ox 101.3 F H 89 20 H 168/80 H 95 11/17/20 07:45 11/17/20 08:39 11/17/20 08:39 11/17/20 07:45 11/17/20 08:39 Oxygen Flow Rate (L/min) 50 Oxygen Delivery Method Airvo Weight: 87.3 kg Body Mass Index (BMI) 29.2 Intake & Output: Intake and Output for Last 24 Hours 11/15/20 11/16/20 11/17/20 23:59 23:59 23:59 Intake Total 750 / 750 1300 / 1300 Output Total 300 / 300 1050 / 1050 300 / 300 Balance 450 / 450 250 / 250 -300 / -300 Lab / Micro Data Attestation: I reviewed the patient's lab results. Result Diagrams: 11/17/20 05:30 11/17/20 05:30 Labs: Laboratory Results - last 24 hr 11/16/20 12:37: POC Glucose 239 H 11/16/20 17:38: POC Glucose 250 H 11/16/20 21:07: POC Glucose 295 H 11/17/20 05:30: WBC 12.0 H, RBC 4.66, Hgb 13.5, Hct 40.5, MCV 86.9, MCH 29.0, MCHC 33.3, RDW Std Deviation 41.1, RDW Coeff of Moses 13.0, Plt Count 300, MPV 10.3, Immature Gran % (Auto) 1.700 H, Neut % (Auto) 85.8 H, Lymph % (Auto) 5.7 L , [place] % (Auto) 6.6, Eos % (Auto) 0.0, Baso % (Auto) 0.2, Absolute Neuts (auto) 10.3 H, Absolute Lymphs (auto) 0.68 L, Nucleated RBC % 0 11/17/20 05:30: Sodium 136, Potassium 4.1, Chloride 104, Carbon Dioxide 25.0, Anion Gap 7, BUN 31 H, Creatinine 1.03, Estim Creat Clear Calc 71.02, Est GFR (MDRD) Af Amer 94, Est GFR (MDRD) Non-Af 78, BUN/Creatinine Ratio 30.1 H, Glucose 282 H, Calcium 8.3 L, Total Bilirubin 0.70, AST 65 H, ALT 38, Alkaline Phosphatase 50, Total Protein 6.6, Albumin 2.4 L, Globulin 4.2, Albumin/Globulin Ratio 0.6 L 11/17/20 06:05: POC Glucose 256 H Micro: Microbiology 11/15/20 15:40 Nasal Secretion SARS-CoV-2 Antigen (Rapid) - Final SARS-CoV-2 (COVID 19) Physical Exam Const alert Constitutional Narrative: Currently in prone position in bed. General Appearance: cooperative and on BiPAP Nutritional Appearance: overweight HEENT normocephalic and head/scalp atraumatic Eyes PERRL and EOMs intact bilaterally Neck supple General: trachea midline Resp Effort and Inspection: tachypneic Auscultation: diminished lung sounds; Negative for rales, rhonchi or wheezes Cardio regular rate and regular rhythm GI normal to inspection, nondistended, normoactive bowel sounds Extremity no clubbing, cyanosis or edema Skin no rashes or lesions noted Neuro CN's II-XII intact bilaterally, moves all extremities and no focal motor deficits Psych cooperative and affect normal Charges/Coding Procedures Hospitalists Procedures: 60256 Critial Care 1st Hr
--- NOTE | 2020-11-17 10:43 | NURSING ---
patient arrived in ICU at 0925 placed on monitor proned, resting comfortably on bipap
[2020-11-17 10:46] LABS: Bedside Glucose 225 mg/dL (70-110)
--- NOTE | 2020-11-17 14:25 | CASEMGMT ---
Patient currently on continuous BiPap at this time. RN CM assessment deferred at this time. CM will continue to follow this patient and plan for a safe discharge.
[2020-11-17] MEDS: Cholecalciferol (VIT D3) 25 MCG TABLET (1,000 UNITS) PO (15:44)
--- NOTE | 2020-11-17 15:44 | CON.PCM.ID_ITS ---
Assessment & Plan Assessment/Plan (1) Acute hypoxemic respiratory failure due to COVID-19: (2) Pneumonia due to COVID-19 virus: PLAN: Sx started around 11/06. Unvaccinated, also sick, improving. On dex, remdesivir, bipap, lovenox 40mg bid. Reviewed EUA and risks/benefits, we agree to start baricitinib. Isolated until 11/26/20. Recommend vaccine once out of iso. CT neg for PE. Will follow, thank you HPI Consult Data Date of Consult: 11/17/20 HPI Narrative HPI Narrative: FARRUKH YEE, is a 65 M who presented 11/15 with cough, fever, change in taste/smell, diarrhea, aches. Went to [facility] [birth year]. 2 days later, got sick. 2 days after that he got sick. Both unvaccinated. Worsened dyspnea, came to ED, admitted on bipap to the icu, started on dex, remdesivir. Feeling a little better. Full ROS performed and neg except as noted above. [facility] Medical History Type 2 diabetes mellitus Home Medications glimepiride 4 mg PO DAILY 11/15/20 [History Last Taken 11/13/20] metformin 1,000 mg PO BID 11/15/20 [History Last Taken 11/15/20] Allergy/AdvReac Type Severity Reaction Status Date / Time No Known Allergies Allergy Verified 11/15/20 14:42 Surgical History no surgical history Social History Smoking Status: Never smoker substance use type: does not use Physical Exam Const alert and oriented x3 Constitutional Narrative: ill appearing, prone General Appearance: cooperative Exam Limitations: no limitations HEENT normocephalic and head/scalp atraumatic Eyes EOMs intact bilaterally Neck supple and No nodes Resp Auscultation: diminished lung sounds Cardio regular rate and regular rhythm GI normal to inspection, nondistended, normoactive bowel sounds Extremity no clubbing, cyanosis or edema Skin no rashes or lesions noted Neuro CN's II-XII intact bilaterally Lab / Micro Data Result Diagrams: 11/17/20 05:30 11/17/20 05:30 Labs: Laboratory Results - last 24 hr 11/16/20 17:38: POC Glucose 250 H 11/16/20 21:07: POC Glucose 295 H 11/17/20 05:30: WBC 12.0 H, RBC 4.66, Hgb 13.5, Hct 40.5, MCV 86.9, MCH 29.0, MCHC 33.3, RDW Std Deviation 41.1, RDW Coeff of Moses 13.0, Plt Count 300, MPV 10.3, Immature Gran % (Auto) 1.700 H, Neut % (Auto) 85.8 H, Lymph % (Auto) 5.7 L , [place] % (Auto) 6.6, Eos % (Auto) 0.0, Baso % (Auto) 0.2, Absolute Neuts (auto) 10.3 H, Absolute Lymphs (auto) 0.68 L, Nucleated RBC % 0 11/17/20 05:30: Sodium 136, Potassium 4.1, Chloride 104, Carbon Dioxide 25.0, Anion Gap 7, BUN 31 H, Creatinine 1.03, Estim Creat Clear Calc 71.02, Est GFR (MDRD) Af Amer 94, Est GFR (MDRD) Non-Af 78, BUN/Creatinine Ratio 30.1 H, Glucose 282 H, Calcium 8.3 L, Total Bilirubin 0.70, AST 65 H, ALT 38, Alkaline Phosphatase 50, Total Protein 6.6, Albumin 2.4 L, Globulin 4.2, Albumin/Globulin Ratio 0.6 L 11/17/20 06:05: POC Glucose 256 H 11/17/20 10:23: POC Glucose 225 H
[2020-11-17 17:01] LABS: Bedside Glucose 220 mg/dL (70-110)
[2020-11-17 22:05] LABS: Bedside Glucose 243 mg/dL (70-110)
[2020-11-18] VITALS (29 sets, daily range): BP systolic 122–192; BP diastolic 77–105; PULSE 65–116; RESP 12–38; TEMP 36.7–38.3; O2SAT 89–100
[2020-11-18 04:00] LABS: Hematocrit 41.2 % (40-54); Hemoglobin 13.8 g/dL (13.0-16.5); Mean Corp Hgb Conc 33.5 g/dL (32-36); Mean Corpuscular Hgb 29.3 pg (27.0-32.0); Mean Corpuscular Volume 87.5 fL (80-94); Mean Platelet Vol. 10.3 fl (6.2-12.0); Platelet Count 290 K/mm3 (150-450); RBC Distribution Width CV 13.2 % (11.6-14.6); RBC Distribution Width SD 42.5 fl (35.1-43.9); Red Blood Count 4.71 M/mm3 (4.6-6.2); White Blood Count 12.4 K/mm3 (4.4-11.0)
[2020-11-18 04:13] LABS: ALB/GLOB Ratio 0.6 RATIO (0.9-2.4); AST(SGOT) 59 U/L (15-37); Alanine Aminotransfer ALT/SGPT 40 U/L (16-61); Albumin, Serum 2.4 g/dL (3.2-5.0); Alkaline Phosphatase 63 U/L (45-117); Anion Gap 7 (5-15); BUN 31 mg/dL (7-18); BUN/Creat Ratio 31.6 RATIO (10-20); Calcium,Total 8.4 mg/dL (8.5-10.1); Chloride 107 mmol/L (98-107); Creatinine, Serum 0.98 mg/dL (0.70-1.30); EST Glomerular Filtration Rate 82 mL/min (>60); Est Glom Filt Rate - Afr Amer 99 mL/min (>60); Estimated Creatinine Clearance 74.64 ml/min; Globulin 4.2 g/dL (2.2-4.2); Glucose 215 mg/dL (74-106); Potassium 4.5 mmol/L (3.5-5.1); Protein, Total 6.6 g/dL (6.4-8.2); Sodium Level 139 mmol/L (136-145)
--- NOTE | 2020-11-18 07:40 | PCM.PN.INT ---
Assessment & Plan Assessment/Plan (1) Pneumonia due to COVID-19 virus: (2) Acute hypoxemic respiratory failure due to COVID-19: (3) Type 2 diabetes mellitus: PLAN: RECOMMENDATIONS: 1. Continue heated high flow and wean FiO2 for saturations greater than 90%. 2. Continue remdesivir to complete 5-day treatment course. Monitor liver and renal function accordingly. 3. Continue Decadron to complete 10-day treatment course. 4. Continue Lovenox twice daily. 5. Continue baricitinib to complete treatment course. 6. Awake prone positioning was encouraged. IMPRESSIONS: 1. Acute hypoxic respiratory failure secondary to COVID-19 Given escalating oxygen requirements, the patient was transferred to the ICU on the morning of November 17. Plan to continue current supportive measures including heated high flow oxygen. Wean FiO2 to maintain oxygen saturations at or above 90%. The patient will be continued on remdesivir as ordered along with Decadron to complete a 10-day treatment course. Plan to continue baricitinib per ID recommendations. Awake prone positioning was encouraged. Intermittent use of diuretics can be utilized to maintain euvolemic state. 2. Diabetes mellitus/overweight/unvaccinated status Complicates care, management, recovery and prognosis. Continue sliding scale insulin coverage. This note was generated with [employer] dictation software. It may contain incorrect words, spelling, and punctuation that were not noted in checking the note before signing. Subjective Subjective The patient was seen and examined at the bedside this morning. Events from the last 24 hours have been reviewed. The patient is currently afebrile, hemodynamically stable and maintaining appropriate oxygen saturations on continuous BiPAP with an FiO2 requirement of 50%. The patient continues to prone himself. The patient remains on remdesivir, Decadron, baricitinib and Lovenox. Objective Data Objective Data The patient's most recent lab work, culture data and imaging studies have all been personally reviewed. Rapid coronavirus antigen testing was positive on November 15. Vital Signs: Vital Signs Temp Pulse Resp BP Pulse Ox 99.9 F H 89 20 H 181/90 H 93 11/18/20 00:00 11/18/20 07:00 11/18/20 07:00 11/18/20 07:00 11/18/20 07:00 Oxygen Flow Rate (L/min) 50 Oxygen Delivery Method Bi-pap Weight: 81.9 kg Body Mass Index (BMI) 29.2 Intake & Output: Intake and Output for Last 24 Hours 11/16/20 11/17/20 11/18/20 23:59 23:59 23:59 Intake Total 1300 / 1300 240 / 240 250 / 250 Output Total 1050 / 1050 1150 / 1150 Balance 250 / 250 -910 / -910 250 / 250 Lab / Micro Data Attestation: I reviewed the patient's lab results. Result Diagrams: 11/18/20 03:30 11/18/20 03:30 Labs: Laboratory Results - last 24 hr 11/17/20 10:23: POC Glucose 225 H 11/17/20 15:58: POC Glucose 220 H 11/17/20 21:54: POC Glucose 243 H 11/18/20 03:30: WBC 12.4 H, RBC 4.71, Hgb 13.8, Hct 41.2, MCV 87.5, MCH 29.3, MCHC 33.5, RDW Std Deviation 42.5, RDW Coeff of Moses 13.2, Plt Count 290, MPV 10.3 11/18/20 03:30: Sodium 139, Potassium 4.5, Chloride 107, Carbon Dioxide 25.0, Anion Gap 7, BUN 31 H, Creatinine 0.98, Estim Creat Clear Calc 74.64, Est GFR (MDRD) Af Amer 99, Est GFR (MDRD) Non-Af 82, BUN/Creatinine Ratio 31.6 H, Glucose 215 H, Calcium 8.4 L, Total Bilirubin 0.60, AST 59 H, ALT 40, Alkaline Phosphatase 63, Total Protein 6.6, Albumin 2.4 L, Globulin 4.2, Albumin/Globulin Ratio 0.6 L Micro: Microbiology 11/15/20 15:58 Blood Culture (Wb) - Left Wrist Blood Culture - Preliminary No growth in 48 hours. 11/15/20 15:20 Blood Culture (Wb) - Anticubital Right Blood Culture - Preliminary No growth in 48 hours. 11/15/20 15:40 Nasal Secretion SARS-CoV-2 Antigen (Rapid) - Final SARS-CoV-2 (COVID 19) Physical Exam Const alert Constitutional Narrative: Sitting in bedside recliner. Fatigued in appearance. General Appearance: cooperative Nutritional Appearance: overweight HEENT normocephalic and head/scalp atraumatic Eyes PERRL and EOMs intact bilaterally Neck supple General: trachea midline Resp Effort and Inspection: tachypneic Auscultation: diminished lung sounds; Negative for rales, rhonchi or wheezes Cardio S1 normal heart sound and S2 normal heart sound Rate: tachycardic GI normal to inspection, nondistended, normoactive bowel sounds Extremity no clubbing, cyanosis or edema Skin no rashes or lesions noted Neuro CN's II-XII intact bilaterally, moves all extremities and no focal motor deficits Psych cooperative and affect normal Charges/Coding Visit Charges Inpatient E&M: 01253 Subs Hosp L3
[2020-11-18] MEDS: 0.9% Saline Lock 10 ML Syringe IV ×2 (08:14→20:48)
[2020-11-18] MEDS: Insulin Lispro 100 UNIT/ML INSULN.PEN SC ×4 (08:14→20:48)
[2020-11-18] MEDS: Enoxaparin 40 MG/0.4 ML Syringe SC ×2 (08:14→20:49)
[2020-11-18] MEDS: Cholecalciferol (VIT D3) 25 MCG TABLET (1,000 UNITS) PO (08:15)
[2020-11-18] MEDS: Famotidine 20 MG Tablet PO ×2 (08:15→20:50)
[2020-11-18] MEDS: dexAMETHasone 10 MG/ML Vial 6 MG IV (08:15)
[2020-11-18] MEDS: Acetaminophen 325 MG Tablet 650 MG PO (08:18)
[2020-11-18 08:30] LABS: Bedside Glucose 198 mg/dL (70-110)
--- NOTE | 2020-11-18 11:05 | CASEMGMT ---
ORIN DUQUE called Franny, for initial transition planning/care coordination assessment, as patient is on continuous BiPap. ORIN DUQUE introduced self and role at [facility]. willing to participate in assessment and is able to answer all questions appropriately. Care providers, pharmacy, and demographics verified. wishes for patient to discharge home, will monitor for need for HHC and home oxygen. states she has no further needs or concerns at this time. CM to follow for discharge planning needs that may arise. PCP: Antoinette Specialists: none Preferred Pharmacy: [facility] Insurance: self pay, self employed Prescription Benefit: none Living Will/HPOA: none LNOK: Living Arrangements: Patient lives with in a 2 story home with bed and bath on first floor. 3 steps and railing to enter the home. Patient is independent at home and able to ambulate stairs. Transportation: self/ DME/HHC: Patient has walker and glucometer with testing supplies. No previous HHC or SNF Disposition Plan: Patient to discharge home with family support and follow-up plans in place. Jazmín MORGAN, RN, CM
[2020-11-18 12:50] LABS: Bedside Glucose 240 mg/dL (70-110)
--- NOTE | 2020-11-18 15:03 | PCM.PN.HOSP ---
Subjective Subjective Patient has been switched over to air Vo and is tolerating that. Is able to prone himself. Denying any current complaints. Objective Data Objective Data Vital Signs: Vital Signs Temp Pulse Resp BP Pulse Ox 36.9 C 70 35 H 152/91 H 90 11/18/20 12:00 11/18/20 14:00 11/18/20 14:00 11/18/20 14:00 11/18/20 14:00 Oxygen Flow Rate (L/min) 60 Oxygen Delivery Method Airvo Weight: 81.9 kg Body Mass Index (BMI) 29.2 Intake & Output: Intake and Output for Last 24 Hours 11/16/20 11/17/20 11/18/20 23:59 23:59 23:59 Intake Total 1300 / 1300 240 / 240 610 / 610 Output Total 1050 / 1050 1150 / 1150 350 / 350 Balance 250 / 250 -910 / -910 260 / 260 Lab / Micro Data Result Diagrams: 11/18/20 03:30 11/18/20 03:30 Labs: Laboratory Results - last 24 hr 11/17/20 15:58: POC Glucose 220 H 11/17/20 21:54: POC Glucose 243 H 11/18/20 03:30: WBC 12.4 H, RBC 4.71, Hgb 13.8, Hct 41.2, MCV 87.5, MCH 29.3, MCHC 33.5, RDW Std Deviation 42.5, RDW Coeff of Moses 13.2, Plt Count 290, MPV 10.3 11/18/20 03:30: Sodium 139, Potassium 4.5, Chloride 107, Carbon Dioxide 25.0, Anion Gap 7, BUN 31 H, Creatinine 0.98, Estim Creat Clear Calc 74.64, Est GFR (MDRD) Af Amer 99, Est GFR (MDRD) Non-Af 82, BUN/Creatinine Ratio 31.6 H, Glucose 215 H, Calcium 8.4 L, Total Bilirubin 0.60, AST 59 H, ALT 40, Alkaline Phosphatase 63, Total Protein 6.6, Albumin 2.4 L, Globulin 4.2, Albumin/Globulin Ratio 0.6 L 11/18/20 08:12: POC Glucose 198 H 11/18/20 11:10: POC Glucose 240 H Micro: Microbiology 11/15/20 15:58 Blood Culture (Wb) - Left Wrist Blood Culture - Preliminary No growth in 48 hours. 11/15/20 15:20 Blood Culture (Wb) - Anticubital Right Blood Culture - Preliminary No growth in 48 hours. 11/15/20 15:40 Nasal Secretion SARS-CoV-2 Antigen (Rapid) - Final SARS-CoV-2 (COVID 19) Physical Exam Const alert Constitutional Narrative: On air Vo. Prone. Resp normal respiratory effort and no retractions Resp Narrative: Coarse breath sounds bilaterally Cardio regular rate, regular rhythm, S1 normal heart sound and S2 normal heart sound GI non-tender and non-distended Extremity normal to inspection and no clubbing, cyanosis or edema Assessment & Plan Assessment/Plan (1) Pneumonia due to COVID-19 virus: (2) Acute hypoxemic respiratory failure due to COVID-19: PLAN: 1. Acute hypoxic respiratory failure Secondary to COVID-19 Was placed on BiPAP on the but has been since transitioned back over to removed on the . Patient appears to be doing well particular when he is prone to. Continue to remind the patient to follow the nurses instructions and to use incentive spirometer. 2. Acute COVID-19 pneumonia Date of onset was 11/08 Infectious disease on consultation Continue with dexamethasone, Barcitinib and remdesivir Unvaccinated 3. Diabetes mellitus type 2 Exacerbated due to the acute physiologic stress as well as dexamethasone Continue SSI 4. VTE prophylaxis with enoxaparin 5. CODE STATUS: Addressed with patient. Patient wants to be full code. 6. Prognosis: stable, but overall guarded Charges/Coding Visit Charges Inpatient E&M: 07305 Subs Hosp L2
[2020-11-18 22:06] LABS: Bedside Glucose 174 mg/dL (70-110)
[2020-11-18 22:06] LABS: Bedside Glucose 278 mg/dL (70-110)
[2020-11-18] MEDS: LORazepam 2 MG/ML Syringe 0.5 MG IV (23:15)
--- NOTE | 2020-11-18 23:38 | PCM.HOSP.N ---
Hospitalist Note Intubation Note: Patient with evidence of respiratory impending distress. Medications administered: Etomidate 20 mg, succinylcholine 100 mg ETT size: 7.5 Patient intubated in standard fashion with visualization of the vocal cords and passage of the ETT. Positioning verified with auscultation. Post-intubation CXR requested. Patient maintained in the ICU with update to ICU physician. Will continue sedation w/ fentanyl and propofol. Procedures Hospitalists Procedures: [id number] Insert Emergency Airway
[2020-11-19] VITALS (42 sets, daily range): BP systolic 88–173; BP diastolic 58–110; PULSE 92–136; RESP 14–37; TEMP 36–37.2; O2SAT 88–100
[2020-11-19] MEDS: Etomidate 20 MG/10 ML Vial IV
--- NOTE | 2020-11-19 | RAD_ITS ---
EXAM: XR Abdomen, 1 View CLINICAL INDICATION: 65 years old, Male; Confirm OG placement -- Prior to admin of any med,fluid,flush,enteral feed TECHNIQUE: Frontal supine view of the abdomen/pelvis. This report was created using [employer] report generation technology. COMPARISON: None. FINDINGS: Lower thorax: No acute pathology. Gastrointestinal tract: Unremarkable. Normal bowel gas pattern. Organs: Unremarkable as visualized. No organomegaly. No abnormal calcifications. Bones/joints: No acute pathology. Soft tissues: No acute pathology. Tubes, lines and devices: Enteric tube tip in the stomach. RAD/Abdomen Single View (Portable) IMPRESSION: Enteric tube tip in the stomach. ASSESSMENT: ABNORMAL report - There are abnormal findings in this report which may be related or unrelated to the reason for the exam. Electronically Signed: Kelvin Cates MD at 1:14 EDT Tel , Service support ,
--- NOTE | 2020-11-19 | RAD_ITS ---
EXAM: XR Chest, 1 View CLINICAL INDICATION: 65 years old, Male; To confirm ET placement -- Call wet read to MD TECHNIQUE: Frontal view of the chest. This report was created using [employer] report generation technology. COMPARISON: Chest x-ray dated 11/19/2020 FINDINGS: Lungs and pleural spaces: Scattered infiltrates in each lung which may be due to edema or pneumonia. No pneumothorax. No effusion. Heart: Unremarkable. Cardiac silhouette not enlarged. Mediastinum: Central airways and mediastinal contour are unremarkable. Bones/joints: Unremarkable. Soft tissues: Unremarkable. Vasculature: Calcified aorta. Tubes, lines and devices: The ETT tip cannot be clearly identified due to overlying EKG leads. Enteric tube tip cannot be seen but is below the diaphragm. RAD/Chest 1 View (Portable) IMPRESSION: 1. The ETT tip cannot be clearly identified due to overlying EKG leads. Repeat x-ray with EKG leads moved off of the central chest would be helpful. 2. Scattered infiltrates in each lung which may be due to edema or pneumonia. ASSESSMENT: ABNORMAL report - There are abnormal findings in this report which may be related or unrelated to the reason for the exam. Electronically Signed: Kelvin Cates MD at 1:13 EDT Tel , Service support ,
[2020-11-19] MEDS: Succinylcholine Chloride 200 MG/10 ML Vial 100 MG IV (00:01)
[2020-11-19] MEDS: Propofol 10MG/Ml 1,000 MG/100 ML Bottle 24.6 MG CONT INF ×3 (00:10→06:09)
--- NOTE | 2020-11-19 00:32 | NURSING ---
called pt's , Franny to inform of intubation and pt update. was appreciative of call, RN informed her to call with any questions.
[2020-11-19 01:21] LABS: CPK Total, Creatine Kinase 581 U/L (39-308); Triglycerides 397 mg/dL
[2020-11-19 01:31] LABS: Base Excess -4 mmol/L (-2 to +2); Bicarbonate 20.9 mmol/L (22-26); Blood Gas Specimen Type ART; FI02 100; Mode AC; O2 Delivery Device Adult Vent; PEEP 10; PO2 92 mmHG (75-100); RR 14; SITE L Radial; SO2 97 % (95-99); Total Carbon Dioxide 22 mmol/L; Vt 450; pCO2 35.6 mmHg (35-45); pH 7.38 (7.35-7.45)
--- NOTE | 2020-11-19 02:35 | RAD_ITS ---
EXAM: XR Chest, 1 View CLINICAL INDICATION: 65 years old, Male; ETT placement TECHNIQUE: Frontal view of the chest. This report was created using [employer] report generation technology. COMPARISON: Chest x-ray obtained earlier today. FINDINGS: Lungs and pleural spaces: Infiltrates in the mid and lower lungs may be due to edema or pneumonia and are similar to prior study. No pneumothorax. No effusion. Heart: Unremarkable. Cardiac silhouette not enlarged. Mediastinum: Central airways and mediastinal contour are unremarkable. Bones/joints: Unremarkable. Soft tissues: Unremarkable. Tubes, lines and devices: Enteric tube tip in the stomach. The endotracheal tube (ETT) is in satisfactory position with tip 3.7 cm above the aidee. RAD/Chest 1 View (Portable) IMPRESSION: Infiltrates in the mid and lower lungs may be due to edema or pneumonia and are similar to prior study. ASSESSMENT: ABNORMAL report - There are abnormal findings in this report which may be related or unrelated to the reason for the exam. Electronically Signed: Kelvin Cates MD at 3:35 EDT Tel , Service support ,
[2020-11-19 04:41] LABS: Hematocrit 42.3 % (40-54); Hemoglobin 14.2 g/dL (13.0-16.5); Mean Corp Hgb Conc 33.6 g/dL (32-36); Mean Corpuscular Hgb 29.5 pg (27.0-32.0); Mean Corpuscular Volume 87.9 fL (80-94); Mean Platelet Vol. 10.3 fl (6.2-12.0); Platelet Count 173 K/mm3 (150-450); RBC Distribution Width CV 13.3 % (11.6-14.6); RBC Distribution Width SD 43.5 fl (35.1-43.9); Red Blood Count 4.81 M/mm3 (4.6-6.2); White Blood Count 17.1 K/mm3 (4.4-11.0)
[2020-11-19 04:59] LABS: ALB/GLOB Ratio 0.6 RATIO (0.9-2.4); AST(SGOT) 62 U/L (15-37); Alanine Aminotransfer ALT/SGPT 42 U/L (16-61); Albumin, Serum 2.5 g/dL (3.2-5.0); Alkaline Phosphatase 68 U/L (45-117); Anion Gap 6 (5-15); BUN 36 mg/dL (7-18); BUN/Creat Ratio 27.1 RATIO (10-20); Calcium,Total 7.9 mg/dL (8.5-10.1); Chloride 109 mmol/L (98-107); Creatinine, Serum 1.33 mg/dL (0.70-1.30); EST Glomerular Filtration Rate 58 mL/min (>60); Est Glom Filt Rate - Afr Amer 70 mL/min (>60); Globulin 3.9 g/dL (2.2-4.2); Glucose 210 mg/dL (74-106); Protein, Total 6.4 g/dL (6.4-8.2); Sodium Level 139 mmol/L (136-145)
--- NOTE | 2020-11-19 07:07 | PN.CC_ITS ---
Assessment & Plan Assessment/Plan (1) Pneumonia due to COVID-19 virus: (2) Acute hypoxemic respiratory failure due to COVID-19: (3) Type 2 diabetes mellitus: PLAN: RECOMMENDATIONS: 1. Continue assist control mode mechanical ventilation. 2. Wean FiO2 and PEEP to maintain saturations at or above 90%. 3. Attempt to maintain plateau pressures less than 30. 4. Continue aggressive sedation regimen and initiate cis atracurium infusion. 5. Attempt prone positioning of patient. 6. Continue remdesivir to complete 5-day treatment course. 7. Continue Decadron to complete 10-day treatment course. 8. Continue Lovenox twice daily. 9. Continue baricitinib treatment regimen. 10. Continue appropriate ICU prophylaxis. IMPRESSIONS: 1. Acute hypoxic respiratory failure secondary to COVID-19 Given escalating oxygen requirements, the patient was transferred to the ICU on the morning of November 17. Despite the use of noninvasive positive pressure ventilatory support, the patient continued to decompensate from a respiratory perspective, ultimately requiring intubation on November 19. The patient will be continued on assist control mode of mechanical ventilation. FiO2 and PEEP will be weaned as tolerated. Goal to maintain plateau pressures less than 30. The patient will remain on heavy sedation and will be initiated on Cis- atracurium infusion. Following this, attempts will be made to place the patient in a prone position. The patient will be continued on remdesivir, Decadron, Lovenox and baricitinib. 2. Acute kidney injury Likely prerenal in etiology and/or related to ATN in the setting #1. Continue to monitor urine output for now. No current indication for renal replacement therapy. 3. Diabetes mellitus/overweight/unvaccinated status Complicates care, management, recovery and prognosis. Continue sliding scale insulin coverage. TIME: 45 minutes of critical care time, independent of procedures, was spent addressing the patient's acute hypoxemic respiratory failure secondary to COVID- 19 pneumonia, review of all data and collaboration with the care team. (0700- 0745) Subjective Subjective The patient was seen and examined at the bedside this morning. Events from the last 24 hours have been reviewed. Last evening, despite attempts to avoid invas aimee mechanical ventilatory support, the patient required intubation due to progressive respiratory decline. He is currently being maintained on assist control mode mechanical ventilation with an FiO2 requirement of 100% and PEEP of 12. The patient is currently documented to be overall net +300 mL for the hospital admission. He remains on remdesivir, Decadron, Lovenox and baricitinib. He is currently sedated on propofol and fentanyl. Objective Data Objective Data The patient's most recent lab work, culture data and imaging studies have all been personally reviewed. Rapid coronavirus antigen testing was positive on November 15. Blood cultures are pending. Vital Signs: Vital Signs Temp Pulse Resp BP Pulse Ox 97.8 F 119 H 29 H 127/74 H 90 11/19/20 05:00 11/19/20 05:00 11/19/20 05:00 11/19/20 05:00 11/19/20 05:40 Oxygen Flow Rate (L/min) 90 Oxygen Delivery Method Mechanical Ventilator Weight: 80.4 kg Body Mass Index (BMI) 29.2 Intake & Output: Intake and Output for Last 24 Hours 11/17/20 11/18/20 11/19/20 23:59 23:59 23:59 Intake Total 240 / 240 850 / 930 564.24 / 564.24 Output Total 1150 / 1150 600 / 850 275 / 275 Balance -910 / -910 250 / 80 289.24 / 289.24 Lab / Micro Data Attestation: I reviewed the patient's lab results. Result Diagrams: 11/19/20 04:30 11/19/20 04:30 Labs: Laboratory Results - last 24 hr 11/18/20 03:30: Total Creatine Kinase 581 H, Triglycerides 397 H 11/18/20 08:12: POC Glucose 198 H 11/18/20 11:10: POC Glucose 240 H 11/18/20 15:47: POC Glucose 174 H 11/18/20 20:47: POC Glucose 278 H 11/19/20 04:30: WBC 17.1 H, RBC 4.81, Hgb 14.2, Hct 42.3, MCV 87.9, MCH 29.5, MCHC 33.6, RDW Std Deviation 43.5, RDW Coeff of Moses 13.3, Plt Count 173, MPV 10.3 11/19/20 04:30: Sodium 139, Potassium 5.0, Chloride 109 H, Carbon Dioxide 24.0, Anion Gap 6, BUN 36 H, Creatinine 1.33 H, Estim Creat Clear Calc 55.00, Est GFR (MDRD) Af Amer 70, Est GFR (MDRD) Non-Af 58 L, BUN/Creatinine Ratio 27.1 H, Glucose 210 H, Calcium 7.9 L, Total Bilirubin 0.90, AST 62 H, ALT 42, Alkaline Phosphatase 68, Total Protein 6.4, Albumin 2.5 L, Globulin 3.9, Albumin/Globulin Ratio 0.6 L Micro: Microbiology 11/15/20 15:58 Blood Culture (Wb) - Left Wrist Blood Culture - Preliminary No growth in 48 hours. 11/15/20 15:20 Blood Culture (Wb) - Anticubital Right Blood Culture - Preliminary No growth in 48 hours. 11/15/20 15:40 Nasal Secretion SARS-CoV-2 Antigen (Rapid) - Final SARS-CoV-2 (COVID 19) ABG Data ABG results: ABG 11/19/20 01:26 Specimen Type ART Sample Site L Radial pH 7.38 Bicarbonate Actual 20.9 L Total CO2 22 Base Excess -4 L O2 Saturation 97 O2 % 100 ABG pCO2 35.6 ABG pO2 92 Respiration Rate 14 O2 Delivery Device Adult Vent Vent Mode AC Tidal Volume 450 POC PEEP 10 Radiography Diagnostic Testing: Radiology Impression Chest X-Ray 11/19/20 00:00 IMPRESSION: 1. The ETT tip cannot be clearly identified due to overlying EKG leads. Repeat x-ray with EKG leads moved off of the central chest would be helpful. 2. Scattered infiltrates in each lung which may be due to edema or pneumonia. ASSESSMENT: ABNORMAL report - There are abnormal findings in this report which may be related or unrelated to the reason for the exam. Electronically Signed: Kelvin Cates MD at 1:13 EDT Tel , Service support , KUB X-Ray 11/19/20 00:00 IMPRESSION: Enteric tube tip in the stomach. ASSESSMENT: ABNORMAL report - There are abnormal findings in this report which may be related or unrelated to the reason for the exam. Electronically Signed: Kelvin Cates MD at 1:14 EDT Tel , Service support , Chest X-Ray 11/19/20 02:35 IMPRESSION: Infiltrates in the mid and lower lungs may be due to edema or pneumonia and are similar to prior study. ASSESSMENT: ABNORMAL report - There are abnormal findings in this report which may be related or unrelated to the reason for the exam. Electronically Signed: Kelvin Cates MD at 3:35 EDT Tel , Service support , Physical Exam Const General Appearance: ill appearing, intubated and patient mechanically ventilated HEENT normocephalic and head/scalp atraumatic Mouth: endotracheal tube in place and OG tube in place Eyes PERRL and EOMs intact bilaterally Neck supple General: trachea midline Chest inspection of chest normal Resp Effort and Inspection: tachypneic Auscultation: diminished lung sounds; Negative for rales, rhonchi or wheezes Cardio S1 normal heart sound, S2 normal heart sound and no murmurs Rate: tachycardic GI normal to inspection, nondistended, normoactive bowel sounds Extremity no clubbing, cyanosis or edema Skin no rashes or lesions noted Neuro Sensorium / Orientation: sedated on vent Charges/Coding Procedures Hospitalists Procedures: 25561 Critial Care 1st Hr
[2020-11-19] MEDS: Propofol 10MG/Ml 1,000 MG/100 ML Bottle 19.3 MG CONT INF ×2 (10:00→15:39)
[2020-11-19] MEDS: Chlorhexidine 15 ML PO ×2 (11:08→21:52)
[2020-11-19] MEDS: Enoxaparin 40 MG/0.4 ML Syringe SC ×2 (11:09→20:53)
[2020-11-19] MEDS: dexAMETHasone 10 MG/ML Vial 6 MG IV (11:10)
[2020-11-19] MEDS: Famotidine 20 MG Tablet GT ×2 (11:10→20:52)
[2020-11-19] MEDS: Cholecalciferol (VIT D3) 25 MCG TABLET (1,000 UNITS) GT (11:10)
[2020-11-19] MEDS: 0.9% Saline Lock 10 ML Syringe IV (11:11)
[2020-11-19] MEDS: Insulin Lispro 100 UNIT/ML INSULN.PEN SC ×3 (11:19→21:54)
[2020-11-19 12:26] LABS: Bedside Glucose 287 mg/dL (70-110)
--- NOTE | 2020-11-19 12:40 | PCM.PN.HOSP ---
Subjective Subjective Patient was seen and examined. Intubated this morning on account of worsening respiratory status. He was seen on mechanical ventilator. Objective Data Objective Data Vital Signs: Vital Signs Temp Pulse Resp BP Pulse Ox 98.5 F 136 H 16 173/76 H 95 11/19/20 08:00 11/19/20 12:00 11/19/20 11:00 11/19/20 11:00 11/19/20 11:00 Oxygen Flow Rate (L/min) 90 Oxygen Delivery Method Mechanical Ventilator Weight: 80.4 kg Body Mass Index (BMI) 29.2 Intake & Output: Intake and Output for Last 24 Hours 11/17/20 11/18/20 11/19/20 23:59 23:59 23:59 Intake Total 240 / 240 850 / 930 861.00 / 861.00 Output Total 1150 / 1150 600 / 850 625 / 625 Balance -910 / -910 250 / 80 236.00 / 236.00 Medical Nutrition Assessment Dietitian: Malnutrition Criteria Met Start: 11/19/20 10:28 Freq: Status: Active Protocol: Document 11/19/20 10:28 (Rec: 11/19/20 10:28 [id number]) Nutrition Malnutrition Evidence of Malnutrition Exists Yes Malnutrition (severe): Acute Illness/Injury Evidenced By Suboptimal Energy Intake ( Severe),Weight Loss (Severe) Intake Problem Inadequate Oral Intake Etiology related to inadequate energy intake d/t acute illness, respiratory failure Signs/Symptoms as evidenced by PO intake meeting <50% of estimated nutritional needs >5 days Status Active Problem Clinical Problem Acute Disease or Injury Related Malnutrition Etiology severe, acute malnutrition r/t inadequate energy intake d/t acute COVID-19 illness Signs/Symptoms as evidenced by estimated PO intake meeting <50% of estimated nutritional needs >5 days; unintentional wt loss of 6.9kg/8% x 4 days Status Active Problem Altered Nutrient-Related Laboratory Values Etiology related to hx of DM and steroid administration Signs/Symptoms as evidenced by gluc 210 Status Active Problem Recommendation Dietitian Recommendations/Changes NPO while intubated; When medically indicated, recommend Vital AF 1.2 via OGT at goal rate of 70mL/hour w/ 110mL H2O flush every 4 hours to provide 2016 calories, 126 g protein, and 2022mL total fluid/day. Would start at 20mL /hour and gradually increase by 15mL/hour every 12 hours as tolerated until goal rate is achieved. Lab / Micro Data Result Diagrams: 11/19/20 04:30 11/19/20 04:30 Labs: Laboratory Results - last 24 hr 11/18/20 03:30: Total Creatine Kinase 581 H, Triglycerides 397 H 11/18/20 11:10: POC Glucose 240 H 11/18/20 15:47: POC Glucose 174 H 11/18/20 20:47: POC Glucose 278 H 11/19/20 04:30: WBC 17.1 H, RBC 4.81, Hgb 14.2, Hct 42.3, MCV 87.9, MCH 29.5, MCHC 33.6, RDW Std Deviation 43.5, RDW Coeff of Moses 13.3, Plt Count 173, MPV 10.3 11/19/20 04:30: Sodium 139, Potassium 5.0, Chloride 109 H, Carbon Dioxide 24.0, Anion Gap 6, BUN 36 H, Creatinine 1.33 H, Estim Creat Clear Calc 55.00, Est GFR (MDRD) Af Amer 70, Est GFR (MDRD) Non-Af 58 L, BUN/Creatinine Ratio 27.1 H, Glucose 210 H, Calcium 7.9 L, Total Bilirubin 0.90, AST 62 H, ALT 42, Alkaline Phosphatase 68, Total Protein 6.4, Albumin 2.5 L, Globulin 3.9, Albumin/Globulin Ratio 0.6 L 11/19/20 11:18: POC Glucose 287 H Micro: Microbiology 11/19/20 01:30 Sputum, Induced/[place]uk[place] Gram Stain - Final 11/15/20 15:58 Blood Culture (Wb) - Left Wrist Blood Culture - Preliminary No growth in 48 hours. 11/15/20 15:20 Blood Culture (Wb) - Anticubital Right Blood Culture - Preliminary No growth in 48 hours. 11/15/20 15:40 Nasal Secretion SARS-CoV-2 Antigen (Rapid) - Final SARS-CoV-2 (COVID 19) ABG Data ABG results: ABG 11/19/20 01:26 Specimen Type ART Sample Site L Radial pH 7.38 Bicarbonate Actual 20.9 L Total CO2 22 Base Excess -4 L O2 Saturation 97 O2 % 100 ABG pCO2 35.6 ABG pO2 92 Respiration Rate 14 O2 Delivery Device Adult Vent Vent Mode AC Tidal Volume 450 POC PEEP 10 Radiography Diagnostic Testing: Radiology Impression Chest X-Ray 11/19/20 00:00 IMPRESSION: 1. The ETT tip cannot be clearly identified due to overlying EKG leads. Repeat x-ray with EKG leads moved off of the central chest would be helpful. 2. Scattered infiltrates in each lung which may be due to edema or pneumonia. ASSESSMENT: ABNORMAL report - There are abnormal findings in this report which may be related or unrelated to the reason for the exam. Electronically Signed: Kelvin Cates MD at 1:13 EDT Tel , Service support , KUB X-Ray 11/19/20 00:00 IMPRESSION: Enteric tube tip in the stomach. ASSESSMENT: ABNORMAL report - There are abnormal findings in this report which may be related or unrelated to the reason for the exam. Electronically Signed: Kelvin Cates MD at 1:14 EDT Tel , Service support , Chest X-Ray 11/19/20 02:35 IMPRESSION: Infiltrates in the mid and lower lungs may be due to edema or pneumonia and are similar to prior study. ASSESSMENT: ABNORMAL report - There are abnormal findings in this report which may be related or unrelated to the reason for the exam. Electronically Signed: Kelvin Cates MD at 3:35 EDT Tel , Service support , Physical Exam Narrative Physical exam: General: Sedated, intubated, mechanical ventilator HEENT: Atraumatic Oral: Moist Mucosa Neck: Supple Lungs: Clear to auscultation Cardiovascular: HS I+II, regular, no murmurs Abdomen: Bowel Sounds Present, Soft, Non Tender Extremities: No edema Assessment & Plan Assessment/Plan (1) Type 2 diabetes mellitus: QUALIFIERS: Diabetes mellitus [facility] insulin use: without [facility] use Diabetes mellitus complication status: with other specified complication Qualified Code(s): E11.69 - Type 2 diabetes mellitus with other specified complication (2) Pneumonia due to COVID-19 virus: (3) Acute hypoxemic respiratory failure due to COVID-19: (4) EZEKIEL (acute kidney injury): PLAN: 1. Acute hypoxic respiratory failure secondary to acute COVID-19 pneumonia. Patient was intubated on 11/19/20 Educational Coordinator following 2. Acute COVID-19 pneumonia, severe, with respiratory failure Patient is unvaccinated, symptoms started on 11/08 Chest x-ray on shows infiltrates in the mid and lower lungs possibly secondary to edema or pneumonia; similar to previous Continue with dexamethasone, Baracitinib and remdesivir Infectious disease following Sputum cultures are pending 3. Diabetes mellitus type 2, blood sugars are uncontrolled Likely secondary to steroid use Will start on Lantus 5 units nightly, continue with insulin sliding scale Charges/Coding Visit Charges Inpatient E&M: 29028 [facility] Hosp L3
[2020-11-19] MEDS: Metoprolol Tartrate 25 MG Tablet GT ×2 (13:45→20:52)
[2020-11-19 13:58] LABS: Hemoglobin A1c 6.8 % (3.8-5.6)
[2020-11-19 22:01] LABS: Bedside Glucose 292 mg/dL (70-110)
[2020-11-20] VITALS (49 sets, daily range): BP systolic 56–177; BP diastolic 48–88; PULSE 89–202; RESP 16–18; TEMP 37.1–38.3; O2SAT 77–98
[2020-11-20 05:27] LABS: Hematocrit 49.4 % (40-54); Hemoglobin 14.7 g/dL (13.0-16.5); Mean Corp Hgb Conc 29.8 g/dL (32-36); Mean Corpuscular Hgb 29.5 pg (27.0-32.0); Mean Platelet Vol. 10.5 fl (6.2-12.0); Platelet Count 191 K/mm3 (150-450); RBC Distribution Width CV 13.5 % (11.6-14.6); RBC Distribution Width SD 49.7 fl (35.1-43.9); Red Blood Count 4.99 M/mm3 (4.6-6.2); White Blood Count 19.8 K/mm3 (4.4-11.0)
[2020-11-20 05:46] LABS: ALB/GLOB Ratio 0.5 RATIO (0.9-2.4); AST(SGOT) 37 U/L (15-37); Alanine Aminotransfer ALT/SGPT 34 U/L (16-61); Albumin, Serum 2.4 g/dL (3.2-5.0); Alkaline Phosphatase 80 U/L (45-117); Anion Gap 8 (5-15); BUN 66 mg/dL (7-18); BUN/Creat Ratio 20.6 RATIO (10-20); Calcium,Total 8.3 mg/dL (8.5-10.1); Chloride 107 mmol/L (98-107); EST Glomerular Filtration Rate 21 mL/min (>60); Est Glom Filt Rate - Afr Amer 25 mL/min (>60); Estimated Creatinine Clearance 22.86 ml/min; Globulin 4.7 g/dL (2.2-4.2); Glucose 200 mg/dL (74-106); Potassium 6.1 mmol/L (3.5-5.1); Protein, Total 7.1 g/dL (6.4-8.2); Sodium Level 138 mmol/L (136-145)
[2020-11-20] MEDS: Insulin Lispro 100 UNIT/ML INSULN.PEN SC ×4 (05:58→22:19)
[2020-11-20 06:01] LABS: Bedside Glucose 379 mg/dL (70-110)
[2020-11-20] MEDS: Propofol 10MG/Ml 1,000 MG/100 ML Bottle 4.8 MG CONT INF (06:15)
--- NOTE | 2020-11-20 08:00 | PCM.PN.HOSP ---
Subjective Subjective Patient was seen and examined. Remains intubated, in prone position at time of being seen. Objective Data Objective Data Vital Signs: Vital Signs Temp Pulse Resp BP Pulse Ox 98.7 F 113 H 16 148/83 H 95 11/20/20 00:00 11/20/20 07:51 11/20/20 07:51 11/20/20 07:00 11/20/20 07:51 Oxygen Flow Rate (L/min) 90 Oxygen Delivery Method Mechanical Ventilator Weight: 81.4 kg Body Mass Index (BMI) 29.2 Intake & Output: Intake and Output for Last 24 Hours 11/18/20 11/19/20 11/20/20 23:59 23:59 23:59 Intake Total 850 / 930 1868.04 / 1914.34 350.65 / 350.65 Output Total 600 / 850 825 / 825 350 / 350 Balance 250 / 80 1043.04 / 1089.34 0.65 / 0.65 Medical Nutrition Assessment Dietitian: Malnutrition Criteria Met Start: 11/19/20 10:28 Freq: Status: Active Protocol: Document 11/19/20 10:28 (Rec: 11/19/20 10:28 [id number]) Nutrition Malnutrition Evidence of Malnutrition Exists Yes Malnutrition (severe): Acute Illness/Injury Evidenced By Suboptimal Energy Intake ( Severe),Weight Loss (Severe) Intake Problem Inadequate Oral Intake Etiology related to inadequate energy intake d/t acute illness, respiratory failure Signs/Symptoms as evidenced by PO intake meeting <50% of estimated nutritional needs >5 days Status Active Problem Clinical Problem Acute Disease or Injury Related Malnutrition Etiology severe, acute malnutrition r/t inadequate energy intake d/t acute COVID-19 illness Signs/Symptoms as evidenced by estimated PO intake meeting <50% of estimated nutritional needs >5 days; unintentional wt loss of 6.9kg/8% x 4 days Status Active Problem Altered Nutrient-Related Laboratory Values Etiology related to hx of DM and steroid administration Signs/Symptoms as evidenced by gluc 210 Status Active Problem Recommendation Dietitian Recommendations/Changes NPO while intubated; When medically indicated, recommend Vital AF 1.2 via OGT at goal rate of 70mL/hour w/ 110mL H2O flush every 4 hours to provide 2016 calories, 126 g protein, and 2022mL total fluid/day. Would start at 20mL /hour and gradually increase by 15mL/hour every 12 hours as tolerated until goal rate is achieved. Lab / Micro Data Result Diagrams: 11/20/20 05:20 11/20/20 05:20 Labs: Laboratory Results - last 24 hr 11/19/20 04:30: Hemoglobin A1c 6.8 H 11/19/20 11:18: POC Glucose 287 H 11/19/20 18:29: POC Glucose 379 H 11/19/20 21:54: POC Glucose 292 H 11/20/20 05:20: WBC 19.8 H, RBC 4.99, Hgb 14.7, Hct 49.4, MCV 99.0 H D, MCH 29.5, MCHC 29.8 L D, RDW Std Deviation 49.7 H, RDW Coeff of Moses 13.5, Plt Count 191, MPV 10.5 11/20/20 05:20: Sodium 138, Potassium 6.1 H*, Chloride 107, Carbon Dioxide 23.0, Anion Gap 8, BUN 66 H, Creatinine 3.20 H, Estim Creat Clear Calc 22.86, Est GFR (MDRD) Af Amer 25 L, Est GFR (MDRD) Non-Af 21 L, BUN/Creatinine Ratio 20.6 H, Glucose 200 H, Calcium 8.3 L, Total Bilirubin 0.50, AST 37, ALT 34, Alkaline Phosphatase 80, Total Protein 7.1, Albumin 2.4 L, Globulin 4.7 H, Albumin/Globulin Ratio 0.5 L Micro: Microbiology 11/19/20 01:30 Sputum, Induced/Lukens Gram Stain - Final 11/15/20 15:58 Blood Culture (Wb) - Left Wrist Blood Culture - Preliminary No growth in 48 hours. 11/15/20 15:20 Blood Culture (Wb) - Anticubital Right Blood Culture - Preliminary No growth in 48 hours. 11/15/20 15:40 Nasal Secretion SARS-CoV-2 Antigen (Rapid) - Final SARS-CoV-2 (COVID 19) Physical Exam Narrative Physical exam: General: Sedated, intubated, mechanical ventilator HEENT: Atraumatic Oral: Moist Mucosa Neck: Supple Lungs: Clear to auscultation Cardiovascular: HS I+II, regular, no murmurs Abdomen: Bowel Sounds Present, Soft, Non Tender Extremities: No edema Assessment & Plan Assessment/Plan (1) Type 2 diabetes mellitus: QUALIFIERS: Diabetes mellitus complication status: with other specified complication Diabetes mellitus penitentiary insulin use: without penitentiary use Qualified Code(s): E11.69 - Type 2 diabetes mellitus with other specified complication (2) Pneumonia due to COVID-19 virus: (3) Acute hypoxemic respiratory failure due to COVID-19: (4) EZEKIEL (acute kidney injury): PLAN: 1. Acute hypoxic respiratory failure secondary to acute COVID-19 pneumonia. Patient was intubated on 11/19/20 Yeast Tender following 2. Acute COVID-19 pneumonia, severe, with respiratory failure Patient is unvaccinated, symptoms started on 11/08 Chest x-ray on shows infiltrates in the mid and lower lungs possibly secondary to edema or pneumonia; similar to previous Continue with dexamethasone, Baracitinib and remdesivir Infectious disease following Sputum cultures are pending 3. Hyperkalemia, will treat with Kayexalate, calcium gluconate, insulin, D50 Repeat potassium later 4. EZEKIEL, prerenal, secondary to #1 and 2, present on admission, improved, worsened from 11/19/20 Creatinine currently 3.2, creatinine on admission 1.41, improved to 0.98 Nephrology consult 5. Diabetes mellitus type 2, blood sugars are uncontrolled Likely secondary to steroid use Continue on increased Lantus dose of 20 units nightly, continue with insulin sliding scale Charges/Coding Visit Charges Inpatient E&M: 02321 Subs Hosp L3
[2020-11-20] MEDS: Chlorhexidine 15 ML PO ×2 (08:42→22:18)
[2020-11-20] MEDS: Metoprolol Tartrate 25 MG Tablet GT ×2 (08:43→16:16)
[2020-11-20] MEDS: Enoxaparin 40 MG/0.4 ML Syringe SC ×2 (08:43→22:19)
[2020-11-20] MEDS: Cholecalciferol (VIT D3) 25 MCG TABLET (1,000 UNITS) GT (08:43)
[2020-11-20] MEDS: Famotidine 20 MG Tablet GT (08:43)
[2020-11-20] MEDS: 0.9% Saline Lock 10 ML Syringe IV ×3 (08:44→16:35)
[2020-11-20] MEDS: dexAMETHasone 10 MG/ML Vial 6 MG IV (08:44)
[2020-11-20] MEDS: Calcium Gluconate 1 GM/10 ML Vial IV ×2 (09:29→16:15)
[2020-11-20] MEDS: CHLORHEXIDINE GLUC 2% CLOTH 1 EACH TOWELETTE TOPICAL (09:30)
[2020-11-20] MEDS: Sodium Polystyrene Sulfonate 15 GM/60 ML UDC 30 GM PO (09:30)
[2020-11-20] MEDS: Dextrose 50%-Water 25 GM/50 ML DISP.SYRIN IV ×2 (09:30→16:15)
--- NOTE | 2020-11-20 09:30 | PN.CC_ITS ---
Assessment & Plan Assessment/Plan (1) Pneumonia due to COVID-19 virus: (2) Acute hypoxemic respiratory failure due to COVID-19: (3) Type 2 diabetes mellitus: QUALIFIERS: Diabetes mellitus complication status: with other specified complication Diabetes mellitus intermediate insulin use: without terminal system operator use Qualified Code(s): E11.69 - Type 2 diabetes mellitus with other specified complication PLAN: RECOMMENDATIONS: 1. Place patient back in supine position and assess clinical response. 2. Continue to wean FiO2 and PEEP as tolerated to maintain saturations at or above 90%. 3. Continue cis atracurium infusion for at least 24 additional hours. 4. Attempt to maintain plateau pressures less than 30. 5. Start empiric antimicrobials. 6. Continue Decadron to complete 10-day treatment course. 7. Continue Lovenox twice daily. 8. Discontinue remdesivir and baricitinib due to renal insufficiency. 9. Obtain nephrology consultation. 10. Continue appropriate ICU prophylaxis. IMPRESSIONS: 1. Acute hypoxic respiratory failure secondary to COVID-19 Given escalating oxygen requirements, the patient was transferred to the ICU on the morning of November 17. Despite the use of noninvasive positive pressure ventilatory support, the patient continued to decompensate from a respiratory perspective, ultimately requiring intubation on November 19. The patient will be continued on assist control mode of mechanical ventilation. FiO2 and PEEP will be weaned as tolerated. Goal to maintain plateau pressures less than 30. The patient tolerated proning well and will be placed back in supine position this morning. Remdesivir and baricitinib were discontinued due to renal insufficiency. The patient will be continued on Decadron and Lovenox as ordered. Continue to wean FiO2 and PEEP as tolerated. 2. Acute kidney injury Likely prerenal in etiology and/or related to ATN in the setting #1. Continue to monitor urine output for now. Given worsening renal insufficiency, obtain nephrology consultation. 3. Diabetes mellitus/overweight/unvaccinated status Complicates care, management, recovery and prognosis. Continue sliding scale insulin coverage. TIME: 38 minutes of critical care time, independent of procedures, was spent add ressing the patient's acute hypoxemic respiratory failure secondary to COVID-19 pneumonia, acute kidney injury, review of all data and collaboration with the care team. ([id number]) Subjective Subjective The patient was seen and examined at the bedside this morning. Events from the last 24 hours have been reviewed. The patient is currently afebrile, hemodynamically stable and maintaining appropriate oxygen saturations on assist control mode of mechanical ventilation with an FiO2 requirement of 45%. The patient has been maintained on cisatracurium and has been in a prone position over the last 24 hours. He is currently documented to be overall net +1.1 L for the hospital admission. White count remains elevated at 20,000. Potassium is elevated this morning at 6.1. BUN has increased to 66. Creatinine has incr eased to 3.2. Objective Data Objective Data The patient's most recent lab work, culture data and imaging studies have all be en personally reviewed. Rapid coronavirus antigen testing was positive on November 15. Blood cultures are pending. Sputum Gram stain revealed an alphahemolytic organism. Vital Signs: Vital Signs Temp Pulse Resp BP Pulse Ox 99 F 110 H 16 152/78 H 94 11/20/20 08:00 11/20/20 09:00 11/20/20 09:00 11/20/20 09:00 11/20/20 09:00 Oxygen Flow Rate (L/min) 90 Oxygen Delivery Method Mechanical Ventilator Weight: 81.4 kg Body Mass Index (BMI) 29.2 Intake & Output: Intake and Output for Last 24 Hours 11/18/20 11/19/20 11/20/20 23:59 23:59 23:59 Intake Total 850 / 930 1868.04 / 1914.34 456.05 / 456.05 Output Total 600 / 850 825 / 825 350 / 350 Balance 250 / 80 1043.04 / 1089.34 106.05 / 106.05 Medical Nutrition Assessment Dietitian: Malnutrition Criteria Met Start: 11/19/20 10:28 Freq: Status: Active Protocol: Document 11/19/20 10:28 (Rec: 11/19/20 10:28 [id number]) Nutrition Malnutrition Evidence of Malnutrition Exists Yes Malnutrition (severe): Acute Illness/Injury Evidenced By Suboptimal Energy Intake ( Severe),Weight Loss (Severe) Intake Problem Inadequate Oral Intake Etiology related to inadequate energy intake d/t acute illness, respiratory failure Signs/Symptoms as evidenced by PO intake meeting <50% of estimated nutritional needs >5 days Status Active Problem Clinical Problem Acute Disease or Injury Related Malnutrition Etiology severe, acute malnutrition r/t inadequate energy intake d/t acute COVID-19 illness Signs/Symptoms as evidenced by estimated PO intake meeting <50% of estimated nutritional needs >5 days; unintentional wt loss of 6.9kg/8% x 4 days Status Active Problem Altered Nutrient-Related Laboratory Values Etiology related to hx of DM and steroid administration Signs/Symptoms as evidenced by gluc 210 Status Active Problem Recommendation Dietitian Recommendations/Changes NPO while intubated; When medically indicated, recommend Vital AF 1.2 via OGT at goal rate of 70mL/hour w/ 110mL H2O flush every 4 hours to provide 2016 calories, 126 g protein, and 2022mL total fluid/day. Would start at 20mL /hour and gradually increase by 15mL/hour every 12 hours as tolerated until goal rate is achieved. Lab / Micro Data Attestation: I reviewed the patient's lab results. Result Diagrams: 11/21/20 04:40 11/21/20 04:40 Labs: Laboratory Results - last 24 hr 11/19/20 04:30: Hemoglobin A1c 6.8 H 11/19/20 11:18: POC Glucose 287 H 11/19/20 18:29: POC Glucose 379 H 11/19/20 21:54: POC Glucose 292 H 11/20/20 05:20: WBC 19.8 H, RBC 4.99, Hgb 14.7, Hct 49.4, MCV 99.0 H D, MCH 29.5, MCHC 29.8 L D, RDW Std Deviation 49.7 H, RDW Coeff of Moses 13.5, Plt Count 191, MPV 10.5 11/20/20 05:20: Sodium 138, Potassium 6.1 H*, Chloride 107, Carbon Dioxide 23.0, Anion Gap 8, BUN 66 H, Creatinine 3.20 H, Estim Creat Clear Calc 22.86, Est GFR (MDRD) Af Amer 25 L, Est GFR (MDRD) Non-Af 21 L, BUN/Creatinine Ratio 20.6 H, G lucose 200 H, Calcium 8.3 L, Total Bilirubin 0.50, AST 37, ALT 34, Alkaline Phosphatase 80, Total Protein 7.1, Albumin 2.4 L, Globulin 4.7 H, Albumin/Globulin Ratio 0.5 L Micro: Microbiology 11/19/20 01:30 Sputum, Induced/Lukens Gram Stain - Final 11/15/20 15:58 Blood Culture (Wb) - Left Wrist Blood Culture - Preliminary No growth in 48 hours. 11/15/20 15:20 Blood Culture (Wb) - Anticubital Right Blood Culture - Preliminary No growth in 48 hours. 11/15/20 15:40 Nasal Secretion SARS-CoV-2 Antigen (Rapid) - Final SARS-CoV-2 (COVID 19) Physical Exam Const Constitutional Narrative: Currently in prone position General Appearance: ill appearing, intubated and patient mechanically ventilated HEENT normocephalic and head/scalp atraumatic Mouth: endotracheal tube in place and OG tube in place Eyes PERRL and EOMs intact bilaterally Neck supple General: trachea midline Chest inspection of chest normal Resp Auscultation: diminished lung sounds; Negative for rales, rhonchi or wheezes Cardio S1 normal heart sound, S2 normal heart sound and no murmurs Rate: tachycardic GI normal to inspection, nondistended, normoactive bowel sounds Extremity no clubbing, cyanosis or edema Skin no rashes or lesions noted Neuro Sensorium / Orientation: sedated on vent
[2020-11-20 12:56] LABS: Bedside Glucose 260 mg/dL (70-110)
--- NOTE | 2020-11-20 14:53 | CASEMGMT ---
Social Work SW placed call to pt Franny to offer support. states that she is with her daughter and has support of family. Franny made aware that SW is available for continued support if needed. BEKA to continue to follow. JIMENEZ Ballard
--- NOTE | 2020-11-20 15:19 | CON.PCM.RE_ITS ---
Documented by User: LUCIEN Rendon 11/20/20 16:20 Assessment & Plan Assessment/Plan (1) Acute hypoxemic respiratory failure due to COVID-19: (2) Pneumonia due to COVID-19 virus: (3) EZEKIEL (acute kidney injury): (4) Hyperkalemia: (5) Type 2 diabetes mellitus: QUALIFIERS: Diabetes mellitus complication status: with other specified complication Diabetes mellitus miner pick insulin use: without group home use Qualified Code(s): E11.69 - Type 2 diabetes mellitus with other specified complication PLAN: Patient has nonoliguric acute kidney injury with normal baseline creatinine in setting of COVID-19 pneumonia and acute hypoxic respiratory failure. Creatinine on admission, 11/15/2020 1.41 mg/dL -->11/18 creatinine 0.98 mg/dL. 11/19 Cr 1.33 mg/dL today creatinine is up to 3.20 mg/dL, potassium 6.1. This morning patient received SPS, calcium gluconate, insulin and D50. Repeat potassium is now 6.6 and creatinine is up to 4.6. Shortly after labs repeated patient went into SVT. He has been ordered another round of calcium gluconate, insulin and D50 however unfortunately these will likely be temporizing measures. Patient is heading towards needing METAL DRILLING MACHINE OPERATOR. Dr. Izquierdo spoke with hospitalist for arrangement of temporary dialysis line. We will arrange for HD today over 2.5 hours with no UF, 1K bath, blood flow rate 250, dialysis flow rate 500. On Dexamethasone. Off remdesivir and baracitinib Continue to monitor for renal recovery. I spoke with patient's Franny and explained above, she gave consent for dialysis and temporary HD catheter. Questions answered. Further orders forthcoming as hospitalization evolves. HPI Consult Data Date of Consult: 11/20/20 HPI Narrative HPI Narrative: FARRUKH YEE, is a 65 M who presented to the emergency room with complaints of shortness of breath, cough, found to be COVID-19 positive. He was admitted to the hospital on 11/15/2020 for acute hypoxic respiratory failure/pneumonia secondary to COVID-19. Patient is on ventilator support, information gathered from the chart, as well as patient's nurse. We were consulted for acute kidney injury. Creatinine on admission, 11/15/2020 was 1.41 mg/dL. On 11/18 creatinine 0.98 mg/dL. Patient's creatinine began to rise yesterday at 1.33 mg/dL. This morning patient's creatinine is up to 3.20 mg/dL. Potassium was 6.1, and this morning patient received SPS, calcium gluconate, insulin and D50. Creatinine in 2017 1.07 mg/dL [facility] Medical History Type 2 diabetes mellitus Home Medications glimepiride 4 mg PO DAILY 11/15/20 [History Last Taken 11/13/20] metformin 1,000 mg PO BID 11/15/20 [History Last Taken 11/15/20] multivit with min-folic acid [Multivitamin Gummies] 2 tab PO DAILY 11/18/20 [History Last Taken Unknown] Allergy/AdvReac Type Severity Reaction Status Date / Time No Known Allergies Allergy Verified 11/15/20 14:42 Surgical History no surgical history Social History Smoking Status: Never smoker substance use type: does not use ROS ROS Narrative Unable to obtain Physical Exam Narrative Patient was not directly examined, patient was seen from outside his ICU room. Patient on ventilator support. Edge draining clear yellow urine. Medical Records Data Medical Nutrition Assessment Dietitian: Malnutrition Criteria Met Start: 11/19/20 10:28 Freq: Status: Active Protocol: Document 11/20/20 14:30 RMA (Rec: 11/20/20 14:30 RMA [id number]) Nutrition Malnutrition Evidence of Malnutrition Exists Yes Malnutrition (severe): Acute Illness/Injury Evidenced By Suboptimal Energy Intake ( Severe),Weight Loss (Severe) Intake Problem Inadequate Oral Intake Etiology related to inadequate energy intake d/t acute illness, respiratory failure Signs/Symptoms as evidenced by PO intake meeting <50% of estimated nutritional needs >5 days Status Active Problem Clinical Problem Acute Disease or Injury Related Malnutrition Etiology severe, acute malnutrition r/t inadequate energy intake d/t acute COVID-19 illness Signs/Symptoms as evidenced by estimated PO intake meeting <50% of estimated nutritional needs >5 days; unintentional wt loss of 6.9kg/8% x 4 days Status Active Problem Altered Nutrient-Related Laboratory Values Etiology related to hx of DM and steroid administration Signs/Symptoms as evidenced by gluc 200 Status Active Problem Recommendation Dietitian Recommendations/Changes NPO while intubated; When medically indicated, recommend Vital AF 1.2 via OGT at goal rate of 70mL/hour w/ 110mL H2O flush every 4 hours to provide 2016 calories, 126 g protein, and 2022mL total fluid/day. Would start at 20mL /hour and gradually increase by 15mL/hour every 12 hours as tolerated until goal rate is achieved. Lab / Micro Data Result Diagrams: 11/20/20 05:20 11/20/20 14:45 Labs: Laboratory Results - last 24 hr 11/19/20 18:29: POC Glucose 379 H 11/19/20 21:54: POC Glucose 292 H 11/20/20 05:20: WBC 19.8 H, RBC 4.99, Hgb 14.7, Hct 49.4, MCV 99.0 H D, MCH 29.5, MCHC 29.8 L D, RDW Std Deviation 49.7 H, RDW Coeff of Moses 13.5, Plt Count 191, MPV 10.5 11/20/20 05:20: Sodium 138, Potassium 6.1 H*, Chloride 107, Carbon Dioxide 23.0, Anion Gap 8, BUN 66 H, Creatinine 3.20 H, Estim Creat Clear Calc 22.86, Est GFR (MDRD) Af Amer 25 L, Est GFR (MDRD) Non-Af 21 L, BUN/Creatinine Ratio 20.6 H, Glucose 200 H, Calcium 8.3 L, Total Bilirubin 0.50, AST 37, ALT 34, Alkaline Phosphatase 80, Total Protein 7.1, Albumin 2.4 L, Globulin 4.7 H, Albumin/Globulin Ratio 0.5 L 11/20/20 12:25: POC Glucose 260 H Micro: Microbiology 11/20/20 12:40 Urine Catheter - Edge Streptococcus pneumoniae Antigen (M - Final Streptococcus pneumonia Ag 11/19/20 01:30 Sputum, Induced/Lukens Gram Stain - Final 11/19/20 01:30 Sputum, Induced/Lukens Respiratory Culture - Preliminary Alpha hemolytic organism Documented by User: Dr. Ben Mora MD 11/20/20 18:44 Assessment & Plan Assessment/Plan (1) EZEKIEL (acute kidney injury): PLAN: The patient is seen and examined. INDUSTRY OPERATIONS INVESTIGATOR's note reflects my independent evaluation and management decision. We will begin hemodialysis tonight because of refractory hyperkalemia. I will use 1 mEq potassium dialysate. We will recheck renal function again tomorrow. However, I anticipate that we will need to dialyze the patient again tomorrow. (1) EZEKIEL (acute kidney injury): PLAN: The patient is seen and examined. INDUSTRY OPERATIONS INVESTIGATOR's note reflects my independent evaluation and management decision. We will begin hemodialysis tonight because of refractory hyperkalemia. I will use 1 mEq potassium dialysate. We will recheck renal function again tomorrow. However, I anticipate that we will need to dialyze the patient again tomorrow. HPI Consult Data Date of Consult: 11/20/20 [facility] Medical History Type 2 diabetes mellitus Home Medications glimepiride 4 mg PO DAILY 11/15/20 [History Last Taken 11/13/20] metformin 1,000 mg PO BID 11/15/20 [History Last Taken 11/15/20] multivit with min-folic acid [Multivitamin Gummies] 2 tab PO DAILY 11/18/20 [History Last Taken Unknown] Allergy/AdvReac Type Severity Reaction Status Date / Time No Known Allergies Allergy Verified 11/15/20 14:42 Surgical History no surgical history Social History Smoking Status: Never smoker substance use type: does not use Lab / Micro Data Result Diagrams: 11/20/20 05:20 11/20/20 14:45
[2020-11-20 15:20] LABS: Anion Gap 7 (5-15); BUN 87 mg/dL (7-18); BUN/Creat Ratio 18.9 RATIO (10-20); Calcium,Total 8.4 mg/dL (8.5-10.1); Chloride 107 mmol/L (98-107); EST Glomerular Filtration Rate 14 mL/min (>60); Est Glom Filt Rate - Afr Amer 17 mL/min (>60); Glucose 292 mg/dL (74-106); Potassium 6.6 mmol/L (3.5-5.1); Sodium Level 136 mmol/L (136-145)
[2020-11-20 15:48] LABS: Magnesium 3.3 mg/dL (1.6-2.6)
[2020-11-20] MEDS: Adenosine 6 MG/2 ML Syringe IV (15:49)
[2020-11-20] MEDS: Metoprolol Tartrate 5 MG/5 ML Vial IV ×2 (15:53→16:00)
--- NOTE | 2020-11-20 15:54 | PCM.PN.ID ---
Physical Exam Narrative On vent now. No fever. Const no apparent distress Resp Auscultation: diminished lung sounds Cardio regular rate and regular rhythm GI normal to inspection, nondistended, normoactive bowel sounds Extremity no clubbing, cyanosis or edema Skin no rashes or lesions noted ID ID: Route of nutrition/ use of supplements: [] Nutritional Intake: [] IV Site: [] Edge Catheter: [] Assessment & Plan Assessment/Plan (1) Acute hypoxemic respiratory failure due to COVID-19: (2) Pneumonia due to COVID-19 virus: PLAN: Sx started around 11/06. Unvaccinated, also sick, improving. On dex, completed remdesivir. Isolate until 11/26/20. Recommend vaccine once out of iso. CT neg for PE. On baricitinib, stop today due to EZEKIEL. On vent. Will follow
--- NOTE | 2020-11-20 16:01 | NURSING ---
1540 patient in SVT in 200s this RN at bedside pulse found and Pads placed 1545 200J synchronized shock with Dr Hamlin [address] Barnes 1553 5 mg Lopressor IV per dr barnes 1600 5 mg lopressor IV per dr barnes EKG done Sinus Tachycardia
--- NOTE | 2020-11-20 16:24 | CON.PCM.SX_ITS ---
Assessment & Plan Assessment/Plan (1) Acute hypoxemic respiratory failure due to COVID-19: (2) Pneumonia due to COVID-19 virus: (3) EZEKIEL (acute kidney injury): PLAN: We will place dialysis catheter as well as triple-lumen catheter for IV access. Consent obtained per Patient's . Denice Addison M.D. Pager: [phone] [facility] [address] [place] [address], [facility], [address] [place] [address] Office: [phone] HPI Consult Data Date of Consult: 11/24/20 HPI Narrative HPI Narrative: FARRUKH YEE, is a 65 M who admitted to the ICU on the ventilator due to acute respiratory failure due to Covid and pneumonia. Patient also has acute kidney injury. Patient requires dialysis catheter as well as a triple-lumen catheter for IV access. Consent was obtained per the . [facility] Medical History Type 2 diabetes mellitus Home Medications glimepiride 4 mg PO DAILY 11/15/20 [History Last Taken 11/13/20] metformin 1,000 mg PO BID 11/15/20 [History Last Taken 11/15/20] multivit with min-folic acid [Multivitamin Gummies] 2 tab PO DAILY 11/18/20 [History Last Taken Unknown] Allergy/AdvReac Type Severity Reaction Status Date / Time No Known Allergies Allergy Verified 11/15/20 14:42 Surgical History no surgical history Social History Smoking Status: Never smoker substance use type: does not use ROS Review of Systems ROS Unobtainable: due to endotracheal tube Physical Exam Narrative Patient is intubated and sedated, ET tube in place/OG in place Resp Auscultation: Negative for wheezes Cardio Rate: tachycardic GI soft to palpation; Negative for non-distended Extremity no clubbing, cyanosis or edema Skin no rashes or lesions noted Medical Records Data Medical Nutrition Assessment Dietitian: Malnutrition Criteria Met Start: 11/19/20 10:28 Freq: Status: Active Protocol: Document 11/20/20 14:30 RMA (Rec: 11/20/20 14:30 RMA [id number]) Nutrition Malnutrition Evidence of Malnutrition Exists Yes Malnutrition (severe): Acute Illness/Injury Evidenced By Suboptimal Energy Intake ( Severe),Weight Loss (Severe) Intake Problem Inadequate Oral Intake Etiology related to inadequate energy intake d/t acute illness, respiratory failure Signs/Symptoms as evidenced by PO intake meeting <50% of estimated nutritional needs >5 days Status Active Problem Clinical Problem Acute Disease or Injury Related Malnutrition Etiology severe, acute malnutrition r/t inadequate energy intake d/t acute COVID-19 illness Signs/Symptoms as evidenced by estimated PO intake meeting <50% of estimated nutritional needs >5 days; unintentional wt loss of 6.9kg/8% x 4 days Status Active Problem Altered Nutrient-Related Laboratory Values Etiology related to hx of DM and steroid administration Signs/Symptoms as evidenced by gluc 200 Status Active Problem Recommendation Dietitian Recommendations/Changes NPO while intubated; When medically indicated, recommend Vital AF 1.2 via OGT at goal rate of 70mL/hour w/ 110mL H2O flush every 4 hours to provide 2016 calories, 126 g protein, and 2022mL total fluid/day. Would start at 20mL /hour and gradually increase by 15mL/hour every 12 hours as tolerated until goal rate is achieved. Lab / Micro Data Result Diagrams: 11/23/20 06:53 11/23/20 06:53 Labs: Laboratory Results - last 24 hr 11/19/20 18:29: POC Glucose 379 H 11/19/20 21:54: POC Glucose 292 H 11/20/20 05:20: WBC 19.8 H, RBC 4.99, Hgb 14.7, Hct 49.4, MCV 99.0 H D, MCH 29.5, MCHC 29.8 L D, RDW Std Deviation 49.7 H, RDW Coeff of Moses 13.5, Plt Count 191, MPV 10.5 11/20/20 05:20: Sodium 138, Potassium 6.1 H*, Chloride 107, Carbon Dioxide 23.0, Anion Gap 8, BUN 66 H, Creatinine 3.20 H, Estim Creat Clear Calc 22.86, Est GFR (MDRD) Af Amer 25 L, Est GFR (MDRD) Non-Af 21 L, BUN/Creatinine Ratio 20.6 H, Glucose 200 H, Calcium 8.3 L, Total Bilirubin 0.50, AST 37, ALT 34, Alkaline Phosphatase 80, Total Protein 7.1, Albumin 2.4 L, Globulin 4.7 H, Albumin/Globulin Ratio 0.5 L 11/20/20 12:25: POC Glucose 260 H 11/20/20 14:45: Sodium 136, Potassium 6.6 H*, Chloride 107, Carbon Dioxide 22.0, Anion Gap 7, BUN 87 H, Creatinine 4.60 H, Estim Creat Clear Calc 15.90, Est GFR (MDRD) Af Amer 17 L, Est GFR (MDRD) Non-Af 14 L, BUN/Creatinine Ratio 18.9, Glucose 292 H, Calcium 8.4 L 11/20/20 14:45: Magnesium 3.3 H Micro: Microbiology 11/15/20 15:20 Blood Culture (Wb) - Anticubital Right Blood Culture - Final No growth in 5 days. 11/20/20 12:40 Urine Catheter - Edge Streptococcus pneumoniae Antigen (M - Final Streptococcus pneumonia Ag 11/19/20 01:30 Sputum, Induced/Lukens Gram Stain - Final 11/19/20 01:30 Sputum, Induced/Lukens Respiratory Culture - Preliminary Alpha hemolytic organism
[2020-11-20 16:33] LABS: International Normalized Ratio 1.5; Prothrombin Time (Protime)PT. 17.8 SECONDS (11.7-14.9)
[2020-11-20] MEDS: Heparin 10,000 UNITS/10 ML Vial 1000 UNITS IV (17:00)
[2020-11-20] MEDS: Propofol 10MG/Ml 1,000 MG/100 ML Bottle 2.4 MG CONT INF (17:00)
--- NOTE | 2020-11-20 17:18 | RAD_ITS ---
STUDY: X-RAY CHEST REASON FOR EXAM: Male, 65 years old. Central line placement and hemodialysis line place TECHNIQUE: Single frontal view of the chest. COMPARISON: Prior day FINDINGS: Large bore central venous catheter tip is in the inferior SVC. Left IJ catheter tip is slightly superior within the SVC. Enteric tube within the stomach. Endotracheal tube tip in the midthoracic trachea. Similar severe diffuse pulmonary opacities. Normal size heart. Normal mediastinum and josselyn. Normal visualized pulmonary arteries. Normal visualized aortic arch and descending thoracic aorta. Normal visualized thoracic spine. Normal visualized ribs, clavicles, and shoulders. There is no demonstrated abnormality of the visualized soft tissue structures of the upper abdomen. RAD/CXR for Line Placement IMPRESSION: Support hardware as above. Similar diffuse pulmonary opacities. Electronically Signed: Yayo Su MD at 18:19 EDT Tel , Service support ,
--- NOTE | 2020-11-20 17:32 | PCM.OPRPT ---
Report of Operation Date of Procedure: 11/20/20 Pre-Operative Diagnosis: Need for IV access, kidney injury Post-Operative Diagnosis: same Surgery/Procedure Performed:: 1. Placement of right IJ hemodialysis catheter, 2. Placement of left IJ triple-lumen catheter Surgeon: Denice Addison Type of Anesthesia: Local Estimated Blood Loss (mL): < 5 cc Description of Procedure: Procedure: A time-out was completed to verify correct patient, indication, medication allergies, procedure, coagulation studies, informed consent signed, and equipment needed. Temporary dialysis catheter The patient was placed in the supine position for a central line placement to the right IJ vein. The patients right neck was prepped using chlorhexidine and a full body sterile drape was applied. 1% lidocaine was used to anesthetize the surrounding skin. A Lovin' Spoonfuls Elite 12 Ethiopian x16 cm (ref [id number] lot [id number]) Temporary hemodialysis catheter introduced into the internal jugular vein using the modified Seldinger technique with the assistance of ultrasound. The site was dilated up twice in a stepwise fashion. The catheter was threaded smoothly over the guidewire, the guidewire was removed easily, nonpulsatile blood returned. All ports were aspirated of air and flushed with sterile saline Then flushed with 1:10,000 heparin 1.3 mL to each port. The catheter was sutured in place and covered with an occlusive dressing impregnated with chlorhexidine. Triple-lumen catheter The patient was placed in the supine position for a central line placement to the left IJ vein. The patients left neck was prepped using chlorhexidine and a full body sterile drape was applied. 1% lidocaine was used to anesthetize the surrounding skin. A triple-lumen catheter introduced into the internal jugular vein using the modified Seldinger technique with the assistance of ultrasound. The site was dilated. The catheter was threaded smoothly over the guidewire, the guidewire was removed easily, nonpulsatile blood returned. All ports were aspirated of air and flushed with sterile saline Then flushed and maricarmen well. The catheter was sutured in place and covered with an occlusive dressing impregnated with chlorhexidine. Patient tolerated procedure well. Chest x-ray was ordered and the positions of catheters were verified and in the correct position. No pneumothorax seen on chest x-ray. Okay to use catheters. Complications none
[2020-11-20 17:41] LABS: Bedside Glucose 327 mg/dL (70-110)
[2020-11-20] MEDS: Adenosine 6 MG/2 ML Syringe 12 MG IV (19:41)
[2020-11-20] MEDS: dilTIAZem 25 MG/5 ML Vial 20 MG IV BOLUS (19:42)
[2020-11-20] MEDS: Phenylephrine 10 MG/ML Vial IV (19:49)
[2020-11-20] MEDS: Phenylephrine 1 MG/10 ML SYRINGE 0.5 MG IV (19:50)
[2020-11-20] MEDS: Amiodarone 360 MG in Dextrose 5% Viaflo Bag 192.8 ML 33.3 MG CONT INF (20:15)
--- NOTE | 2020-11-20 20:56 | NURSING ---
Patient went into SVT, This RN, Dr Barnes, Respiratory Therapy and jig bore operator at bedside. RT put ventilator to 100% due to decrease in saturations at 19:37. 19:37 Cardioverted 200 J 19:39 cardioverted 200 J 19:41 Adenocard 12mg 19:42 Cardizem 20mg 19:42 Cardioverted 200 J 19:44 Amiodarone 150mg 19:47 1L Fluid bolus given by jig bore operator 19:48 Amiodarone Bolus 300mg 19:49 Angel-Synephrine 0.5mg 19:50 Angel- Synephrine 0.5mg 20:15 Amiodarone gtt started @ 1mg
--- NOTE | 2020-11-20 21:40 | DIALYSIS ---
Hemodialysis complete via RIJ temporary dialysis CVC, dressing is clean and dry. Pt ran positive for amount of 1470ml due to tachycardia throughout treatment resulting in hypotension. Dr. Izquierdo was made aware of HR 200s at beginning of treatment and stated ok to run pt positive.
[2020-11-20] MEDS: Digoxin 250 MCG/ML Ampul 500 MCG IV (21:58)
[2020-11-20 22:31] LABS: Bedside Glucose 223 mg/dL (70-110)
--- NOTE | 2020-11-20 23:30 | NURSING ---
Cardioverted with 200 J. Successfully is now back in NSR.
--- NOTE | 2020-11-20 23:50 | PCM.HOSP.N ---
Hospitalist Note Patient with recurrent SVT, already on amidarone, lopressor and digoxin have from discussions with RN not been effective therefore repeat cardioversion with 200 J performed, successful, continue to monitor.
[2020-11-21] VITALS (48 sets, daily range): BP systolic 73–145; BP diastolic 46–82; PULSE 75–162; RESP 15–32; TEMP 37–39.6; O2SAT 16–100
[2020-11-21] MEDS: TITRATION PARAMETER CHANGE 1 EACH IV ×3 (00:11→15:55)
[2020-11-21] MEDS: Digoxin 250 MCG/ML Ampul 500 MCG IV (00:55)
--- NOTE | 2020-11-21 00:55 | NURSING ---
Cardioverted again at 200 J HR in the 160's. and gave digoxin, cardioversion was unsuccessful.
[2020-11-21] MEDS: Metoprolol Tartrate 5 MG/5 ML Vial IV (01:09)
[2020-11-21] MEDS: Amiodarone 360 MG in Dextrose 5% Viaflo Bag 192.8 ML 16.7 MG CONT INF ×2 (02:20→14:22)
[2020-11-21 04:56] LABS: Absolute Lymphocyte Count 0.48 X10^3/uL (0.83-4.51); Absolute Neutrophil Count 11.7 X10^3/uL (2.0-7.7); Basophil# 0.05 X10^3/uL; Basophil% 0.4 % (0-1); Eosinophil# 0.06 X10^3/uL; Eosinophils% 0.4 % (0-5); Hematocrit 40.3 % (40-54); Hemoglobin 12.6 g/dL (13.0-16.5); Lymphocyte # 0.48 X10^3/ul (0.83-4.51); Lymphocyte % 3.6 % (19-41); Mean Corp Hgb Conc 31.3 g/dL (32-36); Mean Corpuscular Hgb 29.2 pg (27.0-32.0); Mean Corpuscular Volume 93.3 fL (80-94); Mean Platelet Vol. 10.4 fl (6.2-12.0); Monocyte# 0.94 X10^3/uL; NRBC Flagged by Analyzer 0.1 % (0-5); Neutrophil % 86.5 % (47-70); POSITIVE DIFFERENTIAL YES; POSITIVE MORPHOLOGY YES; Platelet Count 242 K/mm3 (150-450); RBC Distribution Width CV 13.6 % (11.6-14.6); RBC Distribution Width SD 46.9 fl (35.1-43.9); Red Blood Count 4.32 M/mm3 (4.6-6.2); White Blood Count 13.5 K/mm3 (4.4-11.0)
[2020-11-21 05:04] LABS: Differential Indicated SCAN CRITERIA MET
[2020-11-21 05:12] LABS: ALB/GLOB Ratio 0.4 RATIO (0.9-2.4); AST(SGOT) 41 U/L (15-37); Alanine Aminotransfer ALT/SGPT 27 U/L (16-61); Albumin, Serum 1.7 g/dL (3.2-5.0); Alkaline Phosphatase 72 U/L (45-117); Anion Gap 8 (5-15); BUN 65 mg/dL (7-18); BUN/Creat Ratio 13.3 RATIO (10-20); Calcium,Total 7.6 mg/dL (8.5-10.1); Chloride 102 mmol/L (98-107); Creatinine, Serum 4.89 mg/dL (0.70-1.30); EST Glomerular Filtration Rate 13 mL/min (>60); Est Glom Filt Rate - Afr Amer 16 mL/min (>60); Estimated Creatinine Clearance 14.96 ml/min; Globulin 4.4 g/dL (2.2-4.2); Glucose 130 mg/dL (74-106); Potassium 5.4 mmol/L (3.5-5.1); Protein, Total 6.1 g/dL (6.4-8.2); Sodium Level 136 mmol/L (136-145)
[2020-11-21 05:37] LABS: Differential Comment SCANNED
--- NOTE | 2020-11-21 06:31 | PCM.PN.INT ---
Assessment & Plan Assessment/Plan (1) Pneumonia due to COVID-19 virus: (2) Acute hypoxemic respiratory failure due to COVID-19: (3) Type 2 diabetes mellitus: QUALIFIERS: Diabetes mellitus complication status: with other specified complication Diabetes mellitus shelter insulin use: without intermodal owner operator truck driver use Qualified Code(s): E11.69 - Type 2 diabetes mellitus with other specified complication PLAN: RECOMMENDATIONS: 1. Continue patient on assist control mode of mechanical ventilation. 2. Wean FiO2/PEEP to maintain oxygen saturations at or above 90%. 3. Maintain plateau pressures less than 30 if feasible. 4. Discontinue cis atracurium. 5. Potentially reattempt prone positioning later today after dialysis. 6. Proceed with hemodialysis support per nephrology recommendations. 7. Continue antimicrobials. 8. Continue Decadron to complete 10-day treatment course. 9. Continue Lovenox twice daily. 10. Continue appropriate ICU prophylaxis. IMPRESSIONS: 1. Acute hypoxic respiratory failure secondary to COVID-19 Given escalating oxygen requirements, the patient was transferred to the ICU on the morning of November 17. Despite the use of noninvasive positive pressure ventilatory support, the patient continued to decompensate from a respiratory perspective, ultimately requiring intubation on November 19. The patient will be continued on assist control mode of mechanical ventilation. FiO2 and PEEP will be weaned as tolerated. Goal to maintain plateau pressures less than 30. The patient tolerated proning well and will be placed back in supine position this morning. Remdesivir and baricitinib were discontinued due to renal insufficiency. The patient will be continued on Decadron and Lovenox as ordered. Continue to wean FiO2 and PEEP as tolerated. 2. Acute kidney injury Likely prerenal in etiology and/or related to ATN in the setting #1. Continue to monitor urine output for now. Given worsening renal insufficiency, obtain nephrology consultation. 3. Supraventricular tachycardia 4. Diabetes mellitus/overweight/unvaccinated status Complicates care, management, recovery and prognosis. Continue sliding scale insulin coverage. TIME: 40 minutes of critical care time, independent of procedures, was spent addressing the patient's acute hypoxemic respiratory failure secondary to COVID-19 pneumonia, acute kidney injury, SVT, review of all data and collaboration with the care team. ([id number]) Subjective Subjective The patient was seen and examined at the bedside this morning. Events from the last 24 hours have been reviewed. The patient did have a fever overnight with a T-max of 101 ?F. Yesterday afternoon/evening, the patient developed recurrent episodes of SVT which led to clinical instability and required multiple attempts at cardioversion and multiple therapeutic interventions including administration of IV Lopressor, Cardizem, amiodarone and adenosine. Overnight, the patient was maintained on an amiodarone infusion. He underwent 2 additional attempts at cardioversion. In addition, the patient was given digoxin. He did complete his dialysis session yesterday was noted to be overall +1.4 L. He is currently being maintained on assist control mode of mechanical ventilation. His oxygen requirement has increased over the last 24 hours. He is currently requiring 100% FiO2 and PEEP of 10. He is currently documented to be overall net +3.8 L for the hospital admission. Potassium is improved this morning to 5.4. Cis atracurium was discontinued this morning. Objective Data Objective Data The patient's most recent lab work, culture data and imaging studies have all been personally reviewed. Rapid coronavirus antigen testing was positive on November 15. Blood cultures are pending. Sputum Gram stain revealed an alphahemolytic organism. Strep pneumonia urinary antigen was positive. Vital Signs: Vital Signs Temp Pulse Resp BP Pulse Ox 99.5 F H 131 H 16 136/70 H 91 11/21/20 06:00 11/21/20 06:00 11/21/20 06:00 11/21/20 06:00 11/21/20 06:00 Oxygen Flow Rate (L/min) 90 Oxygen Delivery Method Mechanical Ventilator Weight: 81.4 kg Body Mass Index (BMI) 29.2 Intake & Output: Intake and Output for Last 24 Hours 11/19/20 11/20/20 11/21/20 23:59 23:59 23:59 Intake Total 1868.04 / 1914.34 3131.95 / 3218.38 587.00 / 587.00 Output Total 825 / 825 830 / 905 125 / 125 Balance 1043.04 / 1089.34 2301.95 / 2313.38 462.00 / 462.00 Medical Nutrition Assessment Dietitian: Malnutrition Criteria Met Start: 11/19/20 10:28 Freq: Status: Active Protocol: Document 11/20/20 14:30 RMA (Rec: 11/20/20 14:30 RMA [id number]) Nutrition Malnutrition Evidence of Malnutrition Exists Yes Malnutrition (severe): Acute Illness/Injury Evidenced By Suboptimal Energy Intake ( Severe),Weight Loss (Severe) Intake Problem Inadequate Oral Intake Etiology related to inadequate energy intake d/t acute illness, respiratory failure Signs/Symptoms as evidenced by PO intake meeting <50% of estimated nutritional needs >5 days Status Active Problem Clinical Problem Acute Disease or Injury Related Malnutrition Etiology severe, acute malnutrition r/t inadequate energy intake d/t acute COVID-19 illness Signs/Symptoms as evidenced by estimated PO intake meeting <50% of estimated nutritional needs >5 days; unintentional wt loss of 6.9kg/8% x 4 days Status Active Problem Altered Nutrient-Related Laboratory Values Etiology related to hx of DM and steroid administration Signs/Symptoms as evidenced by gluc 200 Status Active Problem Recommendation Dietitian Recommendations/Changes NPO while intubated; When medically indicated, recommend Vital AF 1.2 via OGT at goal rate of 70mL/hour w/ 110mL H2O flush every 4 hours to provide 2016 calories, 126 g protein, and 2022mL total fluid/day. Would start at 20mL /hour and gradually increase by 15mL/hour every 12 hours as tolerated until goal rate is achieved. Lab / Micro Data Attestation: I reviewed the patient's lab results. Result Diagrams: 11/21/20 04:40 11/21/20 12:35 Labs: Laboratory Results - last 24 hr 11/20/20 12:25: POC Glucose 260 H 11/20/20 14:45: Sodium 136, Potassium 6.6 H*, Chloride 107, Carbon Dioxide 22.0, Anion Gap 7, BUN 87 H, Creatinine 4.60 H, Estim Creat Clear Calc 15.90, Est GFR (MDRD) Af Amer 17 L, Est GFR (MDRD) Non-Af 14 L, BUN/Creatinine Ratio 18.9, Glucose 292 H, Calcium 8.4 L 11/20/20 14:45: Magnesium 3.3 H 11/20/20 16:20: PT 17.8 H, INR 1.5 11/20/20 17:30: POC Glucose 327 H 11/20/20 22:16: POC Glucose 223 H 11/21/20 04:40: WBC 13.5 H, RBC 4.32 L, Hgb 12.6 L, Hct 40.3, MCV 93.3 D, MCH 29.2, MCHC 31.3 L D, RDW Std Deviation 46.9 H, RDW Coeff of Moses 13.6, Plt Count 242, MPV 10.4, Immature Gran % (Auto) 2.100 H, Neut % (Auto) 86.5 H, Lymph % (Auto) 3.6 L, [place] % (Auto) 7.0, Eos % (Auto) 0.4, Baso % (Auto) 0.4, Absolute Neuts (auto) 11.7 H, Absolute Lymphs (auto) 0.48 L, Nucleated RBC % 0.1, Differential Comment SCANNED 11/21/20 04:40: Sodium 136, Potassium 5.4 H, Chloride 102, Carbon Dioxide 26.0, Anion Gap 8, BUN 65 H, Creatinine 4.89 H, Estim Creat Clear Calc 14.96, Est GFR (MDRD) Af Amer 16 L, Est GFR (MDRD) Non-Af 13 L, BUN/Creatinine Ratio 13.3, Glucose 130 H, Calcium 7.6 L, Total Bilirubin 0.80, AST 41 H, ALT 27, Alkaline Phosphatase 72, Total Protein 6.1 L, Albumin 1.7 L, Globulin 4.4 H, Albumin/Globulin Ratio 0.4 L Micro: Microbiology 11/15/20 15:20 Blood Culture (Wb) - Anticubital Right Blood Culture - Final No growth in 5 days. 11/20/20 12:40 Urine Catheter - Edge Streptococcus pneumoniae Antigen (M - Final Streptococcus pneumonia Ag 11/19/20 01:30 Sputum, Induced/Lukens Gram Stain - Final 11/19/20 01:30 Sputum, Induced/Lukens Respiratory Culture - Preliminary Alpha hemolytic organism 11/15/20 15:58 Blood Culture (Wb) - Left Wrist Blood Culture - Preliminary No growth in 48 hours. 11/15/20 15:40 Nasal Secretion SARS-CoV-2 Antigen (Rapid) - Final SARS-CoV-2 (COVID 19) Radiography Diagnostic Testing: Radiology Impression Chest X-Ray 11/20/20 17:18 IMPRESSION: Support hardware as above. Similar diffuse pulmonary opacities. Electronically Signed: Yayo Su MD at 18:19 EDT Tel , Service support , Physical Exam Const General Appearance: ill appearing, intubated and patient mechanically ventilated HEENT normocephalic and head/scalp atraumatic Mouth: endotracheal tube in place and OG tube in place Eyes PERRL and EOMs intact bilaterally Neck supple General: trachea midline and CVC in place Chest inspection of chest normal Resp Effort and Inspection: tachypneic Auscultation: diminished lung sounds; Negative for rales, rhonchi or wheezes Cardio S1 normal heart sound, S2 normal heart sound and no murmurs Cardio Narrative: SVT on telemetry Rate: tachycardic GI normal to inspection, nondistended, normoactive bowel sounds Extremity no clubbing, cyanosis or edema Skin no rashes or lesions noted Neuro Sensorium / Orientation: sedated on vent Charges/Coding Procedures Hospitalists Procedures: [id number] Critial Care 1st Hr
[2020-11-21 07:00] LABS: Magnesium 2.7 mg/dL (1.6-2.6); Phosphorus 3.4 mg/dL (2.5-4.9)
[2020-11-21] MEDS: Propofol 10MG/Ml 1,000 MG/100 ML Bottle 9.6 MG CONT INF (08:15)
[2020-11-21 08:34] LABS: Hepatitis B Surface Antibody Non-Reactive; Hepatitis B Surface Antigen Non-Reactive (Nonreactive)
[2020-11-21] MEDS: Metoprolol Tartrate 50 MG Tablet GT ×2 (09:15→21:46)
[2020-11-21] MEDS: dilTIAZem 25 MG/5 ML Vial 20 MG IV BOLUS (09:15)
[2020-11-21] MEDS: Chlorhexidine 15 ML PO ×2 (10:56→21:53)
--- NOTE | 2020-11-21 11:14 | EKG12_ITS ---
Test Reason : SVT Blood Pressure : / mmHG Vent. Rate : 092 BPM Atrial Rate : 092 BPM P-R Int : 138 ms QRS Dur : 098 ms QT Int : 332 ms P-R-T Axes : 020 -03 040 degrees QTc Int : 410 ms Normal sinus rhythm Normal ECG Confirmed by HENNY KIM, VIVIAN ([id number]), purchasing expeditor TIMBO MCCLURE ([id number]) on 11/24/2020 1:51:01 PM Referred By: ZULLY Confirmed By:VIVIAN INMAN MD
--- NOTE | 2020-11-21 11:14 | EKG12_ITS ---
Test Reason : Blood Pressure : / mmHG Vent. Rate : 101 BPM Atrial Rate : 101 BPM P-R Int : 146 ms QRS Dur : 100 ms QT Int : 322 ms P-R-T Axes : 030 000 103 degrees QTc Int : 417 ms Sinus tachycardia T wave abnormality, consider lateral ischemia Abnormal ECG When compared with ECG of 21-NOV-2020 11:14, MANUAL COMPARISON REQUIRED, DATA IS UNCONFIRMED Confirmed by ANA MARIA KIM, DAMION ([id number]), digital editor TIMBO MCCLURE ([id number]) on 11/26/2020 11:11:27 AM Referred By: ZULLY Confirmed By:DAMION RODGERS MD
--- NOTE | 2020-11-21 12:11 | RAD_ITS ---
STUDY: X-RAY CHEST REASON FOR EXAM: Male, 65 years old. Increasing shortness of breath. TECHNIQUE: Single AP portable view of the chest. COMPARISON: Comparison is made with prior study dated 11/20/2020 at 5:35 PM. FINDINGS: An endotracheal tube is in situ. The tip is at 3.4 cm proximal to the aidee. An oral gastric tube is seen with the tip below the left hemidiaphragm. A right-sided central catheter has been placed with the tip at the junction of the superior vena cava and right atrium. A left-sided central line has been placed with the tip in the midportion of the superior cava. Since prior study, there has been improved aeration of both lungs although residual bilateral infiltrates persist. There is no demonstrated pleural abnormality. Normal size heart. Normal mediastinum and josselyn. Normal visualized pulmonary arteries. Normal visualized aortic arch and descending thoracic aorta. Normal visualized thoracic spine. Normal visualized ribs, clavicles, and shoulders. There is no demonstrated abnormality of the visualized soft tissue structures of the upper abdomen. RAD/Chest 1 View (Portable) IMPRESSION: Interval improvement in the bilateral pulmonary infiltrates. Residual changes persist. Electronically Signed: Brenton Valdez MD at 12:38 EDT , Service support ,
--- NOTE | 2020-11-21 12:25 | EKG12_ITS ---
Test Reason : SVT Blood Pressure : / mmHG Vent. Rate : 138 BPM Atrial Rate : 138 BPM P-R Int : 128 ms QRS Dur : 092 ms QT Int : 366 ms P-R-T Axes : 043 -13 -05 degrees QTc Int : 554 ms Sinus tachycardia Possible Left ventricular hypertrophy Possible Inferior infarct , age undetermined Nonspecific ST and T wave abnormality Abnormal ECG Confirmed by HENNY KIM, VIVIAN ([id number]), legal editor TIMBO MCCLURE ([id number]) on 11/24/2020 1:51:54 PM Referred By: ZULLY Confirmed By:VIVIAN INMAN MD
--- NOTE | 2020-11-21 12:25 | EKG12_ITS ---
Test Reason : Blood Pressure : / mmHG Vent. Rate : 114 BPM Atrial Rate : 170 BPM P-R Int : 000 ms QRS Dur : 098 ms QT Int : 330 ms P-R-T Axes : 000 012 087 degrees QTc Int : 454 ms Atrial fibrillation Nonspecific T wave abnormality , probably digitalis effect Abnormal ECG When compared with ECG of 20-NOV-2020 22:46, MANUAL COMPARISON REQUIRED, DATA IS UNCONFIRMED Confirmed by ANA MARIA IKM, DAMION ([id number]), research editor TIMBO MCCLURE ([id number]) on 11/26/2020 11:10:40 AM Referred By: ZULLY Confirmed By:DAMION RODGERS MD
--- NOTE | 2020-11-21 12:33 | ECHOD_ITS ---
Reason For Study: ARRHYTHMIA Procedure This was a 2D Doppler, Color Flow transthoracic echocardiogram. Patient was scanned in supine position during reflux assessment. The exam was abbreviated due to the COVID 19 protocol. Exam performed portable in ICU/CCU. Left Ventricle Normal LV size. Apical false tendon noted. Left ventricular systolic function is hyperdynamic. The estimated ejection fraction is 75 %. Unable to assess diastolic dysfunction. No regional wall motion abnormalities noted. Right Ventricle Normal RV size. Normal systolic function. Atria Normal left atrium. Normal right atrium. No doppler evidence for ASD. Mitral Valve There is no mitral annular calcification. Normal mitral valve. Trivial mitral valve insufficiency. Tricuspid Valve Normal tricuspid valve. Mild tricuspid valve insufficiency. Right ventricular systolic pressure estimated to be 42 mmHg. Aortic Valve Trisinus/trileaflet aortic valve. Mild diffuse aortic valve thickening. Pulmonic Valve The pulmonic valve is not well visualized. Great Vessels The aortic root is not well visualized. Pericardium/Pleural No pericardial effusion. MMode/2D Measurements & Calculations LVIDd: 3.6 cm IVSd: 1.2 cm LVAd ap4: 25.0 cm2 LVIDs: 2.3 cm LVPWd: 1.2 cm LVLd ap4: 6.7 cm FS: 35.8 % EDV(MOD-sp4): 74.2 ml EDV(sp4-el): 78.7 ml LVAs ap4: 12.6 cm2 LVLs ap4: 6.0 cm ESV(MOD-sp4): 23.7 ml ESV(sp4-el): 22.5 ml EF(MOD-sp4): 68.0 % EF(sp4-el): 71.4 % SV(MOD-sp4): 50.5 ml SV(sp4-el): 56.2 ml Doppler Measurements & Calculations TR max dewayne: 302.2 cm/sec TR max P.5 mmHg ECHO/Echo Complete Interpretation Summary Left ventricular systolic function is hyperdynamic. The estimated ejection fraction is 75 %. Apical false tendon noted. Trivial mitral valve insufficiency. Mild tricuspid valve insufficiency. Mild diffuse aortic valve thickening. Right ventricular systolic pressure estimated to be 42 mmHg. Unable to assess diastolic dysfunction. Ordering Physician: Calvin Barnes Referring Physician: SOPHIE LANDAVERDE Performed By: Irene Griffith, APPLE, RVT
--- NOTE | 2020-11-21 12:33 | PCM.PN.HOSP ---
Subjective Subjective Patient was seen and examined. Patient was started on dialysis yesterday. He remains hypotensive, he had episodes of SVT/V. tach. He is currently in A. fib on telemetry. Objective Data Objective Data Vital Signs: Vital Signs Temp Pulse Resp BP Pulse Ox 98.6 F 112 H 16 73/58 L 97 11/21/20 10:00 11/21/20 11:00 11/21/20 11:00 11/21/20 11:00 11/21/20 11:00 Oxygen Flow Rate (L/min) 90 Oxygen Delivery Method Mechanical Ventilator Weight: 83.9 kg Body Mass Index (BMI) 29.2 Intake & Output: Intake and Output for Last 24 Hours 11/19/20 11/20/20 11/21/20 23:59 23:59 23:59 Intake Total 1868.04 / 1914.34 3131.95 / 3218.38 756.40 / 756.40 Output Total 825 / 825 830 / 905 125 / 125 Balance 1043.04 / 1089.34 2301.95 / 2313.38 631.40 / 631.40 Medical Nutrition Assessment Dietitian: Malnutrition Criteria Met Start: 11/19/20 10:28 Freq: Status: Active Protocol: Document 11/21/20 12:11 RMA (Rec: 11/21/20 12:11 RMA [id number]) Nutrition Malnutrition Evidence of Malnutrition Exists Yes Malnutrition (severe): Acute Illness/Injury Evidenced By Suboptimal Energy Intake ( Severe),Weight Loss (Severe) Intake Problem Inadequate Oral Intake Etiology related to respiratory failure /increased oxygen needs Signs/Symptoms as evidenced by NPO; proned state and need for TF support Status Active Problem Clinical Problem Acute Disease or Injury Related Malnutrition Etiology severe protein-calorie malnutrition in the context of acute illness related to inadequate energy/oral intake Signs/Symptoms as evidenced by estimated PO intake meeting <50% of estimated nutritional needs >5 days; unintentional wt loss of 6.9kg/8% x 4 days Status Active Problem Recommendation Dietitian Recommendations/Changes NPO while intubated. When medically indicated, recommend Vital AF 1.2 via OGT at goal rate of 70mL/hour w/ 50mL H2O flush every 4 hours to provide 2016 calories, 126 g protein, and 1662mL free water/day. Would start at 20mL /hour and gradually increase by 10-15mL/hour every 12 hours as tolerated until goal rate 70mL/hr is achieved. Will monitor TF tolerance as established, wt, labs and follow-up with need to adjust TF rate/flushes given initiation of dialysis today. Lab / Micro Data Result Diagrams: 11/21/20 04:40 11/21/20 04:40 Labs: Laboratory Results - last 24 hr 11/20/20 12:25: POC Glucose 260 H 11/20/20 14:45: Sodium 136, Potassium 6.6 H*, Chloride 107, Carbon Dioxide 22.0, Anion Gap 7, BUN 87 H, Creatinine 4.60 H, Estim Creat Clear Calc 15.90, Est GFR (MDRD) Af Amer 17 L, Est GFR (MDRD) Non-Af 14 L, BUN/Creatinine Ratio 18.9, Glucose 292 H, Calcium 8.4 L 11/20/20 14:45: Magnesium 3.3 H 11/20/20 16:20: PT 17.8 H, INR 1.5 11/20/20 17:30: POC Glucose 327 H 11/20/20 22:16: POC Glucose 223 H 11/21/20 04:40: Hep Bs Antigen Non-Reactive, Hep Bs Antibody Non-Reactive 11/21/20 04:40: WBC 13.5 H, RBC 4.32 L, Hgb 12.6 L, Hct 40.3, MCV 93.3 D, MCH 29.2, MCHC 31.3 L D, RDW Std Deviation 46.9 H, RDW Coeff of Moses 13.6, Plt Count 242, MPV 10.4, Immature Gran % (Auto) 2.100 H, Neut % (Auto) 86.5 H, Lymph % (Auto) 3.6 L, [place] % (Auto) 7.0, Eos % (Auto) 0.4, Baso % (Auto) 0.4, Absolute Neuts (auto) 11.7 H, Absolute Lymphs (auto) 0.48 L, Nucleated RBC % 0.1, Differential Comment SCANNED 11/21/20 04:40: Sodium 136, Potassium 5.4 H, Chloride 102, Carbon Dioxide 26.0, Anion Gap 8, BUN 65 H, Creatinine 4.89 H, Estim Creat Clear Calc 14.96, Est GFR (MDRD) Af Amer 16 L, Est GFR (MDRD) Non-Af 13 L, BUN/Creatinine Ratio 13.3, Glucose 130 H, Calcium 7.6 L, Total Bilirubin 0.80, AST 41 H, ALT 27, Alkaline Phosphatase 72, Total Protein 6.1 L, Albumin 1.7 L, Globulin 4.4 H, Albumin/Globulin Ratio 0.4 L 11/21/20 04:40: Phosphorus 3.4, Magnesium 2.7 H Micro: Microbiology 11/19/20 01:30 Sputum, Induced/Lukens Gram Stain - Final 11/19/20 01:30 Sputum, Induced/Lukens Respiratory Culture - Preliminary Streptococcus pneumoniae Possible Fungus 11/15/20 15:58 Blood Culture (Wb) - Left Wrist Blood Culture - Final No growth in 5 days. 11/15/20 15:20 Blood Culture (Wb) - Anticubital Right Blood Culture - Final No growth in 5 days. 11/20/20 12:40 Urine Catheter - Edge Streptococcus pneumoniae Antigen (M - Final Streptococcus pneumonia Ag 11/15/20 15:40 Nasal Secretion SARS-CoV-2 Antigen (Rapid) - Final SARS-CoV-2 (COVID 19) Radiography Diagnostic Testing: Radiology Impression Chest X-Ray 11/20/20 17:18 IMPRESSION: Support hardware as above. Similar diffuse pulmonary opacities. Electronically Signed: Yayo Su MD at 18:19 EDT Tel , Service support , Physical Exam Narrative Physical exam: General: Sedated, intubated, mechanical ventilator HEENT: Atraumatic Oral: Moist Mucosa Neck: Supple Lungs: Clear to auscultation Cardiovascular: HS I+II, regular, no murmurs Abdomen: Bowel Sounds Present, Soft, Non Tender Extremities: No edema Assessment & Plan Assessment/Plan (1) Type 2 diabetes mellitus: QUALIFIERS: Diabetes mellitus halfway insulin use: without intermediate manager use Diabetes mellitus complication status: with other specified complication Qualified Code(s): E11.69 - Type 2 diabetes mellitus with other specified complication (2) Pneumonia due to COVID-19 virus: (3) Acute hypoxemic respiratory failure due to COVID-19: (4) EZEKIEL (acute kidney injury): PLAN: 1. Acute hypoxic respiratory failure secondary to acute COVID-19 pneumonia/ACUTE strep pneumonia Patient was intubated on 11/19/20 [employer] following 2. Acute COVID-19 pneumonia, severe, with respiratory failure Patient is unvaccinated, symptoms started on 11/08 Chest x-ray on shows infiltrates in the mid and lower lungs possibly secondary to edema or pneumonia; similar to previous Continue with dexamethasone, Baracitinib and remdesivir Infectious disease following Sputum cultures are pending 3. Acute streptococcal pneumonia, Sputum and urine streptococcal antigen is positive Blood cultures are negative Patient is on IV ceftriaxone 4. Hyperkalemia, status post treatment and emergent dialysis Potassium today is 5.4, patient is getting dialysis also 5. EZEKIEL, prerenal, secondary to #1 and 2, present on admission, improved, worsened from 11/19/20 Creatinine currently 4.89, creatinine on admission 1.41, improved to 0.98 Nephrology consulted 5. Diabetes mellitus type 2, blood sugars are uncontrolled HbA1c 6.8 Hyperglycemia secondary to steroid use Continue on increased Lantus dose of 30 units nightly, continue with insulin sliding scale Charges/Coding Visit Charges Inpatient E&M: 737[address] [facility] L3
[2020-11-21] MEDS: Etomidate 20 MG/10 ML Vial IV (12:40)
--- NOTE | 2020-11-21 12:55 | RAD_ITS ---
STUDY: X-RAY CHEST REASON FOR EXAM: Male, 65 years old. tube placement et og TECHNIQUE: Single AP portable view of the chest. COMPARISON: Comparison is made with prior examination done earlier in the day. FINDINGS: A normal gastric tube is seen with the tip in the body of the stomach. Otherwise, there has been no change since prior study. RAD/Chest 1 View (Portable) IMPRESSION: The tip of the orogastric tube is in the body of the stomach. The remainder of the examination is unchanged. Electronically Signed: Brenton Valdez MD at 13:13 EDT , Service support ,
[2020-11-21 12:58] LABS: International Normalized Ratio 1.6; Prothrombin Time (Protime)PT. 18.4 SECONDS (11.7-14.9)
[2020-11-21 12:59] LABS: Partial Thromboplast Time 31.6 Seconds (24.1-36.2)
[2020-11-21 13:10] LABS: Anion Gap 7 (5-15); BUN 44 mg/dL (7-18); BUN/Creat Ratio 11.1 RATIO (10-20); Calcium,Total 7.3 mg/dL (8.5-10.1); Chloride 101 mmol/L (98-107); Creatinine, Serum 3.97 mg/dL (0.70-1.30); EST Glomerular Filtration Rate 16 mL/min (>60); Est Glom Filt Rate - Afr Amer 20 mL/min (>60); Estimated Creatinine Clearance 18.43 ml/min; Glucose 131 mg/dL (74-106); Magnesium 2.3 mg/dL (1.6-2.6); Phosphorus 5.9 mg/dL (2.5-4.9); Potassium 4.6 mmol/L (3.5-5.1); Sodium Level 136 mmol/L (136-145); Triglycerides 414 mg/dL; Troponin-I HS 73 pg/mL (3.0-78.0)
--- NOTE | 2020-11-21 13:10 | DIALYSIS ---
Hemodialysis stopped at 1215 (ran 2h &10m), ran on a 2K bath, 2nd tx, tolerated fair, UF -250mL (gain of 250mL), unable to pull fluid due to hypotension, patient became active at approx 1130, shivering-like movements, change in respiratory pattern, tx ended per ICU doctor's request, accessed via right neck temporary dialysis catheter, worked well, next tx per nephrology
[2020-11-21 13:49] LABS: D-Dimer Quantitative (DVT/PE) 15.96 FEU/ug/m (0.27-0.49)
[2020-11-21] MEDS: Propofol 10MG/Ml 1,000 MG/100 ML Bottle 24.1 MG CONT INF ×3 (14:00→19:48)
--- NOTE | 2020-11-21 14:09 | PN.RENAL_ITS ---
Subjective Subjective patient recently just came off of dialysis. Objective Data Objective Data Vital Signs: Vital Signs Temp Pulse Resp BP Pulse Ox 98.6 F 92 23 H 125/61 H 90 11/21/20 12:25 11/21/20 14:06 11/21/20 14:06 11/21/20 12:25 11/21/20 14:06 Oxygen Flow Rate (L/min) 90 Oxygen Delivery Method Mechanical Ventilator Weight: 83.9 kg Body Mass Index (BMI) 29.2 Intake & Output: Intake and Output for Last 24 Hours 11/19/20 11/20/20 11/21/20 23:59 23:59 23:59 Intake Total 1868.04 / 1914.34 3131.95 / 3218.38 1006.40 / 1006.40 Output Total 825 / 825 830 / 905 125 / 125 Balance 1043.04 / 1089.34 2301.95 / 2313.38 881.40 / 881.40 Medical Nutrition Assessment Dietitian: Malnutrition Criteria Met Start: 11/19/20 10:28 Freq: Status: Active Protocol: Document 11/21/20 12:11 RMA (Rec: 11/21/20 12:11 RMA [id number]) Nutrition Malnutrition Evidence of Malnutrition Exists Yes Malnutrition (severe): Acute Illness/Injury Evidenced By Suboptimal Energy Intake ( Severe),Weight Loss (Severe) Intake Problem Inadequate Oral Intake Etiology related to respiratory failure /increased oxygen needs Signs/Symptoms as evidenced by NPO; proned state and need for TF support Status Active Problem Clinical Problem Acute Disease or Injury Related Malnutrition Etiology severe protein-calorie malnutrition in the context of acute illness related to inadequate energy/oral intake Signs/Symptoms as evidenced by estimated PO intake meeting <50% of estimated nutritional needs >5 days; unintentional wt loss of 6.9kg/8% x 4 days Status Active Problem Recommendation Dietitian Recommendations/Changes NPO while intubated. When medically indicated, recommend Vital AF 1.2 via OGT at goal rate of 70mL/hour w/ 50mL H2O flush every 4 hours to provide 2016 calories, 126 g protein, and 1662mL free water/day. Would start at 20mL /hour and gradually increase by 10-15mL/hour every 12 hours as tolerated until goal rate 70mL/hr is achieved. Will monitor TF tolerance as established, wt, labs and follow-up with need to adjust TF rate/flushes given initiation of dialysis today. Lab / Micro Data Result Diagrams: 11/21/20 04:40 11/21/20 12:35 Labs: Laboratory Results - last 24 hr 11/20/20 14:45: Sodium 136, Potassium 6.6 H*, Chloride 107, Carbon Dioxide 22.0, Anion Gap 7, BUN 87 H, Creatinine 4.60 H, Estim Creat Clear Calc 15.90, Est GFR (MDRD) Af Amer 17 L, Est GFR (MDRD) Non-Af 14 L, BUN/Creatinine Ratio 18.9, Glucose 292 H, Calcium 8.4 L 11/20/20 14:45: Magnesium 3.3 H 11/20/20 16:20: PT 17.8 H, INR 1.5 11/20/20 17:30: POC Glucose 327 H 11/20/20 22:16: POC Glucose 223 H 11/21/20 04:40: Hep Bs Antigen Non-Reactive, Hep Bs Antibody Non-Reactive 11/21/20 04:40: WBC 13.5 H, RBC 4.32 L, Hgb 12.6 L, Hct 40.3, MCV 93.3 D, MCH 29.2, MCHC 31.3 L D, RDW Std Deviation 46.9 H, RDW Coeff of Moses 13.6, Plt Count 242, MPV 10.4, Immature Gran % (Auto) 2.100 H, Neut % (Auto) 86.5 H, Lymph % (Auto) 3.6 L, [place] % (Auto) 7.0, Eos % (Auto) 0.4, Baso % (Auto) 0.4, Absolute Neuts (auto) 11.7 H, Absolute Lymphs (auto) 0.48 L, Nucleated RBC % 0.1, Differential Comment SCANNED 11/21/20 04:40: Sodium 136, Potassium 5.4 H, Chloride 102, Carbon Dioxide 26.0, Anion Gap 8, BUN 65 H, Creatinine 4.89 H, Estim Creat Clear Calc 14.96, Est GFR (MDRD) Af Amer 16 L, Est GFR (MDRD) Non-Af 13 L, BUN/Creatinine Ratio 13.3, Glucose 130 H, Calcium 7.6 L, Total Bilirubin 0.80, AST 41 H, ALT 27, Alkaline Phosphatase 72, Total Protein 6.1 L, Albumin 1.7 L, Globulin 4.4 H, Albumin/Globulin Ratio 0.4 L 11/21/20 04:40: Phosphorus 3.4, Magnesium 2.7 H 11/21/20 12:35: PT 18.4 H, INR 1.6, APTT 31.6 11/21/20 12:35: Sodium 136, Potassium 4.6, Chloride 101, Carbon Dioxide 28.0, A nion Gap 7, BUN 44 H, Creatinine 3.97 H, Estim Creat Clear Calc 18.43, Est GFR (MDRD) Af Amer 20 L, Est GFR (MDRD) Non-Af 16 L, BUN/Creatinine Ratio 11.1, Glucose 131 H, Calcium 7.3 L, Phosphorus 5.9 H, Magnesium 2.3, Troponin I High Sens 73, Triglycerides 414 H 11/21/20 12:35: D-Dimer Quant (PE/DVT) 15.96 H* Micro: Microbiology 11/19/20 01:30 Sputum, Induced/Lukens Gram Stain - Final 11/19/20 01:30 Sputum, Induced/Lukens Respiratory Culture - Preliminary Streptococcus pneumoniae Possible Fungus 11/15/20 15:58 Blood Culture (Wb) - Left Wrist Blood Culture - Final No growth in 5 days. 11/15/20 15:20 Blood Culture (Wb) - Anticubital Right Blood Culture - Final No growth in 5 days. 11/20/20 12:40 Urine Catheter - Edge Streptococcus pneumoniae Antigen (M - Final Streptococcus pneumonia Ag 11/15/20 15:40 Nasal Secretion SARS-CoV-2 Antigen (Rapid) - Final SARS-CoV-2 (COVID 19) Radiography Diagnostic Testing: Radiology Impression Chest X-Ray 11/20/20 17:18 IMPRESSION: Support hardware as above. Similar diffuse pulmonary opacities. Electronically Signed: Yayo Su MD at 18:19 EDT Tel , Service support , Chest X-Ray 11/21/20 12:11 IMPRESSION: Interval improvement in the bilateral pulmonary infiltrates. Residual changes persist. Electronically Signed: Brenton Valdez MD at 12:38 EDT , Service support , Chest X-Ray 11/21/20 12:55 IMPRESSION: The tip of the orogastric tube is in the body of the stomach. The remainder of the examination is unchanged. Electronically Signed: Brenton Valdez MD at 13:13 EDT , Service support , Physical Exam Narrative Patient not directly examined, patient was seen from outside ICU room. Patient on vent support. Edge draining clear yellow urine. Assessment & Plan Assessment/Plan (1) Acute hypoxemic respiratory failure due to COVID-19: (2) Pneumonia due to COVID-19 virus: (3) Hyperkalemia: (4) EZEKIEL (acute kidney injury): (5) Hypotension: PLAN: Nonoliguric acute kidney injury with normal baseline creatinine in setting of COVID-19 pneumonia and acute hypoxic respiratory failure. Creatinine on admission, 11/15/2020 1.41 mg/dL -->11/18 creatinine 0.98 mg/dL. Creatinine began to up-trend on 11/19 Cr 1.33 mg/dL --> 11/20 Cr 4.6 mg/dL, potassium peaked 6.6. Patient underwent 1st HD session on 11/20 on 1K bath and ran 1.5L positive. Labs today Cr 4.89, K+ 5.4, Patient had HD again this morning on 2kbath but only tolerated 2hours 10minutes. HD terminated as patient having difficulty wit h ET tube and also noted mottling of lower legs. BP dropped towards end of HD session, he ran positive 250ml. Now on levophed. Today UOP looks to be dropping off On Dexamethasone. Off remdesivir and baracitinib. Antibiotic coverage ceftriaxone Continue to monitor for renal recovery. Started on levophed. Developed SVT/VT, now Afib on amio gtt. received cardizem/dig IV. Oral metoprolol given recurrent hyperkalemia despite AUTOMOTIVE SERVICE CONSULTANT recommend lower K+ enteral formula Will continue to monitor daily for dialysis needs.
[2020-11-21] MEDS: Famotidine 20 MG Tablet GT (14:19)
[2020-11-21] MEDS: dexAMETHasone 10 MG/ML Vial 6 MG IV (14:19)
[2020-11-21] MEDS: Senna/Docusate Sodium 1 Tablet PO ×2 (14:19→21:46)
[2020-11-21] MEDS: Cholecalciferol (VIT D3) 25 MCG TABLET (1,000 UNITS) GT (14:19)
[2020-11-21] MEDS: Acetaminophen 650 MG/20 ML UDC GT (14:42)
[2020-11-21] MEDS: 0.9% Saline Lock 10 ML Syringe IV ×2 (14:43→15:08)
[2020-11-21] MEDS: Heparin Injection (Vial) 5,000 UNIT/ML VIAL 6000 UNIT IV (15:07)
[2020-11-21] MEDS: HEPARIN/D5w 25,000 UNITS 25,000 UNITS/250 ML IV.SOLN. 12 UNITS IV (15:08)
--- NOTE | 2020-11-21 15:50 | NURSING ---
1220. Dr. Barnes present in pt room, 1245 etomidate 20mg IV push per Dr. Barnes order succs 100mg IV push per Dr. Barnes order 1247 OET removed, new tube placed 7.5, 24cm at lip, good color change 1250 bronch per , no plug 1300 confirming cxr complete. read by Dr. Barnes
[2020-11-21 19:26] LABS: Bedside Glucose 193 mg/dL (70-110)
[2020-11-21] MEDS: Insulin Lispro 100 UNIT/ML INSULN.PEN SC ×2 (19:47→23:45)
[2020-11-21] MEDS: Propofol 10MG/Ml 1,000 MG/100 ML Bottle 12.1 MG CONT INF (22:59)
[2020-11-22] VITALS (51 sets, daily range): BP systolic 79–216; BP diastolic 45–86; PULSE 51–103; RESP 16–27; TEMP 36.4–37.8; O2SAT 72–100
[2020-11-22 00:16] LABS: Bedside Glucose 243 mg/dL (70-110)
[2020-11-22] MEDS: Amiodarone 360 MG in Dextrose 5% Viaflo Bag 192.8 ML 16.7 MG CONT INF ×2 (01:49→12:50)
[2020-11-22] MEDS: Insulin Lispro 100 UNIT/ML INSULN.PEN SC ×2 (06:41→12:51)
[2020-11-22 07:03] LABS: Partial Thromboplast Time 83.8 Seconds (24.1-36.2)
--- NOTE | 2020-11-22 08:01 | PN.CC_ITS ---
Assessment & Plan Assessment/Plan (1) Pneumonia due to COVID-19 virus: (2) Acute hypoxemic respiratory failure due to COVID-19: (3) Type 2 diabetes mellitus: QUALIFIERS: Diabetes mellitus complication status: with other specified complication Diabetes mellitus senior living insulin use: without superintendent marine oil terminal use Qualified Code(s): E11.69 - Type 2 diabetes mellitus with other specified complication PLAN: RECOMMENDATIONS: 1. Continue patient on assist control mode of mechanical ventilation. 2. Wean FiO2/PEEP to maintain oxygen saturations at or above 90%. 3. Maintain plateau pressures less than 30 if feasible. 4. Continue with hemodialysis per nephrology recommendations. 5. Continue antimicrobials. 6. Continue Decadron to complete 10-day treatment course. 7. Continue Lovenox twice daily. 8. Continue appropriate ICU prophylaxis. IMPRESSIONS: 1. Acute hypoxic respiratory failure secondary to COVID-19 Given escalating oxygen requirements, the patient was transferred to the ICU on the morning of November 17. Despite the use of noninvasive positive pressure ventilatory support, the patient continued to decompensate from a respiratory perspective, ultimately requiring intubation on November 19. The patient will be continued on assist control mode of mechanical ventilation. FiO2 and PEEP will be weaned as tolerated. Goal to maintain plateau pressures less than 30. The patient has tolerated periods of proning with improvement in his oxygenation status. Remdesivir and baricitinib were discontinued due to renal insufficiency. The patient will be continued on Decadron and Lovenox as ordered. 2. Acute kidney injury Likely prerenal in etiology and/or related to ATN in the setting #1. Nephrology is currently following plans for hemodialysis today. 3. Supraventricular tachycardia Plan to continue amiodarone as ordered along with metoprolol. 4. Diabetes mellitus/overweight/unvaccinated status Complicates care, management, recovery and prognosis. Continue sliding scale insulin coverage. TIME: 35 minutes of critical care time, independent of procedures, was spent addressing the patient's acute hypoxemic respiratory failure secondary to COVID- 19 pneumonia, acute kidney injury, SVT, review of all data and collaboration with the care team. ([id number]) Subjective Subjective The patient was seen and examined at the bedside this morning. Events from the last 24 hours have been reviewed. The patient continues to have a fever with a T-max overnight which was documented to be 103.2 ?F. The patient is otherwise hemodynamically stable. He was maintained in a prone position overnight. Oxygenation status improved as a consequence of this. The patient is currently documented to be overall net +5.5 L for the hospital admission. There are plans for dialysis today. Objective Data Objective Data The patient's most recent lab work, culture data and imaging studies have all been personally reviewed. Rapid coronavirus antigen testing was positive on November 15. Blood cultures are pending. Sputum Gram stain revealed an alp hahemolytic organism. Strep pneumonia urinary antigen was positive. Vital Signs: Vital Signs Temp Pulse Resp BP Pulse Ox 100.1 F H 77 22 H 107/61 93 11/22/20 00:00 11/22/20 07:32 11/22/20 07:32 11/22/20 07:00 11/22/20 07:32 Oxygen Flow Rate (L/min) 90 Oxygen Delivery Method Mechanical Ventilator Weight: 83.9 kg Body Mass Index (BMI) 29.2 Intake & Output: Intake and Output for Last 24 Hours 11/20/20 11/21/20 11/22/20 23:59 23:59 23:59 Intake Total 3131.95 / 3218.38 2137.55 / 2238.65 521.69 / 521.69 Output Total 830 / 905 185 / 385 310 / 310 Balance 2301.95 / 2313.38 1952.55 / 1853.65 211.69 / 211.69 Medical Nutrition Assessment Dietitian: Malnutrition Criteria Met Start: 11/19/20 10:28 Freq: Status: Active Protocol: Document 11/21/20 12:11 RMA (Rec: 11/21/20 12:11 RMA [id number]) Nutrition Malnutrition Evidence of Malnutrition Exists Yes Malnutrition (severe): Acute Illness/Injury Evidenced By Suboptimal Energy Intake ( Severe),Weight Loss (Severe) Intake Problem Inadequate Oral Intake Etiology related to respiratory failure /increased oxygen needs Signs/Symptoms as evidenced by NPO; proned state and need for TF support Status Active Problem Clinical Problem Acute Disease or Injury Related Malnutrition Etiology severe protein-calorie malnutrition in the context of acute illness related to inadequate energy/oral intake Signs/Symptoms as evidenced by estimated PO intake meeting <50% of estimated nutritional needs >5 days; unintentional wt loss of 6.9kg/8% x 4 days Status Active Problem Recommendation Dietitian Recommendations/Changes NPO while intubated. When medically indicated, recommend Vital AF 1.2 via OGT at goal rate of 70mL/hour w/ 50mL H2O flush every 4 hours to provide 2016 calories, 126 g protein, and 1662mL free water/day. Would start at 20mL /hour and gradually increase by 10-15mL/hour every 12 hours as tolerated until goal rate 70mL/hr is achieved. Will monitor TF tolerance as established, wt, labs and follow-up with need to adjust TF rate/flushes given initiation of dialysis today. Lab / Micro Data Attestation: I reviewed the patient's lab results. Result Diagrams: 11/22/20 05:10 11/21/20 12:35 Labs: Laboratory Results - last 24 hr 11/21/20 04:40: Hep Bs Antigen Non-Reactive, Hep Bs Antibody Non-Reactive 11/21/20 12:35: PT 18.4 H, INR 1.6, APTT 31.6 11/21/20 12:35: Sodium 136, Potassium 4.6, Chloride 101, Carbon Dioxide 28.0, Anion Gap 7, BUN 44 H, Creatinine 3.97 H, Estim Creat Clear Calc 18.43, Est GFR (MDRD) Af Amer 20 L, Est GFR (MDRD) Non-Af 16 L, BUN/Creatinine Ratio 11.1, Glucose 131 H, Calcium 7.3 L, Phosphorus 5.9 H, Magnesium 2.3, Troponin I High Sens 73, Triglycerides 414 H 11/21/20 12:35: D-Dimer Quant (PE/DVT) 15.96 H* 11/21/20 19:09: POC Glucose 193 H 11/21/20 21:56: APTT 94.0 H* 11/21/20 23:44: POC Glucose 243 H 11/22/20 06:33: APTT 83.8 H Micro: Microbiology 11/19/20 01:30 Sputum, Induced/Lukens Gram Stain - Final 11/19/20 01:30 Sputum, Induced/Lukens Respiratory Culture - Preliminary Streptococcus pneumoniae Possible Fungus 11/15/20 15:58 Blood Culture (Wb) - Left Wrist Blood Culture - Final No growth in 5 days. 11/15/20 15:20 Blood Culture (Wb) - Anticubital Right Blood Culture - Final No growth in 5 days. 11/20/20 12:40 Urine Catheter - Edge Streptococcus pneumoniae Antigen (M - Final Streptococcus pneumonia Ag 11/15/20 15:40 Nasal Secretion SARS-CoV-2 Antigen (Rapid) - Final SARS-CoV-2 (COVID 19) Radiography Diagnostic Testing: Radiology Impression Chest X-Ray 11/21/20 12:11 IMPRESSION: Interval improvement in the bilateral pulmonary infiltrates. Residual changes persist. Electronically Signed: Brenton Valdez MD at 12:38 EDT , Service support , Echocardiogram 11/21/20 12:33 Interpretation Summary Left ventricular systolic function is hyperdynamic. The estimated ejection fraction is 75 %. Apical false tendon noted. Trivial mitral valve insufficiency. Mild tricuspid valve insufficiency. Mild diffuse aortic valve thickening. Right ventricular systolic pressure estimated to be 42 mmHg. Unable to assess diastolic dysfunction. Ordering Physician: Calvin Barnes Referring Physician: SOPHIE LANDAVERDE Performed By: Irene Griffith, RDCS, RVT Chest X-Ray 11/21/20 12:55 IMPRESSION: The tip of the orogastric tube is in the body of the stomach. The remainder of the examination is unchanged. Electronically Signed: Brenton Valdez MD at 13:13 EDT , Service support , Physical Exam Const General Appearance: ill appearing, intubated and patient mechanically ventilated HEENT normocephalic and head/scalp atraumatic Mouth: endotracheal tube in place and OG tube in place Eyes PERRL and EOMs intact bilaterally Neck supple General: trachea midline and CVC in place Chest inspection of chest normal Resp Effort and Inspection: tachypneic Auscultation: diminished lung sounds; Negative for rales, rhonchi or wheezes Cardio regular rate, regular rhythm, S1 normal heart sound, S2 normal heart sound and no murmurs GI normal to inspection, nondistended, normoactive bowel sounds Extremity no clubbing, cyanosis or edema Skin no rashes or lesions noted Neuro Sensorium / Orientation: sedated on vent Charges/Coding Procedures Hospitalists Procedures: 56160 Critial Care 1st Hr
[2020-11-22 09:13] LABS: Absolute Lymphocyte Count 0.53 X10^3/uL (0.83-4.51); Absolute Neutrophil Count 9.9 X10^3/uL (2.0-7.7); Basophil# 0.05 X10^3/uL; Basophil% 0.4 % (0-1); Hemoglobin 10.5 g/dL (13.0-16.5); Lymphocyte # 0.53 X10^3/ul (0.83-4.51); Lymphocyte % 4.7 % (19-41); Mean Corp Hgb Conc 31.8 g/dL (32-36); Mean Corpuscular Hgb 29.3 pg (27.0-32.0); Mean Corpuscular Volume 92.2 fL (80-94); Mean Platelet Vol. 11.4 fl (6.2-12.0); Monocyte# 0.66 X10^3/uL; Monocyte% 5.9 % (0-10); NRBC Flagged by Analyzer 0 % (0-5); Neutrophil % 87.8 % (47-70); POSITIVE DIFFERENTIAL YES; POSITIVE MORPHOLOGY YES; Platelet Count 217 K/mm3 (150-450); RBC Distribution Width CV 13.8 % (11.6-14.6); Red Blood Count 3.58 M/mm3 (4.6-6.2)
[2020-11-22 09:14] LABS: Differential Indicated SCAN CRITERIA MET
[2020-11-22 09:41] LABS: White Blood Count 11.3 K/mm3 (4.4-11.0)
[2020-11-22] MEDS: TITRATION PARAMETER CHANGE 1 EACH IV (11:09)
[2020-11-22] MEDS: dexAMETHasone 10 MG/ML Vial 6 MG IV (11:10)
[2020-11-22] MEDS: Chlorhexidine 15 ML PO ×2 (11:10→20:57)
[2020-11-22] MEDS: Senna/Docusate Sodium 1 Tablet PO ×2 (11:17→20:59)
[2020-11-22] MEDS: Famotidine 20 MG Tablet GT (11:18)
[2020-11-22] MEDS: Cholecalciferol (VIT D3) 25 MCG TABLET (1,000 UNITS) GT (11:18)
[2020-11-22] MEDS: 0.9% Saline Lock 10 ML Syringe IV (11:35)
[2020-11-22 11:36] LABS: Glucose 229 mg/dL (74-106)
[2020-11-22 11:37] LABS: ALB/GLOB Ratio 0.3 RATIO (0.9-2.4); AST(SGOT) 74 U/L (15-37); Alanine Aminotransfer ALT/SGPT 40 U/L (16-61); Albumin, Serum 1.4 g/dL (3.2-5.0); Alkaline Phosphatase 66 U/L (45-117); BUN 78 mg/dL (7-18); BUN/Creat Ratio 11.8 RATIO (10-20); Calcium,Total 7.2 mg/dL (8.5-10.1); Chloride 97 mmol/L (98-107); EST Glomerular Filtration Rate 9 mL/min (>60); Est Glom Filt Rate - Afr Amer 11 mL/min (>60); Estimated Creatinine Clearance 11.08 ml/min; Globulin 4.3 g/dL (2.2-4.2); Potassium 5.5 mmol/L (3.5-5.1); Protein, Total 5.7 g/dL (6.4-8.2); Sodium Level 133 mmol/L (136-145); Triglycerides 344 mg/dL
[2020-11-22 11:38] LABS: Anion Gap 11 (5-15)
[2020-11-22 12:11] LABS: Bedside Glucose 231 mg/dL (70-110)
[2020-11-22 12:11] LABS: Bedside Glucose 195 mg/dL (70-110)
[2020-11-22] MEDS: Propofol 10MG/Ml 1,000 MG/100 ML Bottle 20.6 MG CONT INF (12:49)
[2020-11-22] MEDS: HEPARIN/D5w 25,000 UNITS 25,000 UNITS/250 ML IV.SOLN. 9 UNITS IV (12:50)
--- NOTE | 2020-11-22 14:14 | PN.HOSP_ITS ---
Subjective Subjective Patient was seen and examined. His oxygen requirements have improved some. His heart rate is better controlled. Normal sinus rhythm. Objective Data Objective Data Vital Signs: Vital Signs Temp Pulse Resp BP Pulse Ox 98.9 F 53 L 23 H 133/62 H 95 11/22/20 12:00 11/22/20 12:00 11/22/20 12:00 11/22/20 13:00 11/22/20 12:00 Oxygen Flow Rate (L/min) 90 Oxygen Delivery Method Mechanical Ventilator Weight: 85.8 kg Body Mass Index (BMI) 29.2 Intake & Output: Intake and Output for Last 24 Hours 11/20/20 11/21/20 11/22/20 23:59 23:59 23:59 Intake Total 3131.95 / 3218.38 2137.55 / 2238.65 1202.98 / 1202.98 Output Total 830 / 905 185 / 385 310 / 310 Balance 2301.95 / 2313.38 1952.55 / 1853.65 892.98 / 892.98 Medical Nutrition Assessment Dietitian: Malnutrition Criteria Met Start: 11/19/20 10:28 Freq: Status: Active Protocol: Document 11/22/20 09:35 BP (Rec: 11/22/20 09:35 BP [id number]) Nutrition Malnutrition Evidence of Malnutrition Exists Yes Malnutrition (severe): Acute Illness/Injury Evidenced By Suboptimal Energy Intake ( Severe),Weight Loss (Severe) Intake Problem Inadequate Oral Intake Etiology related to respiratory failure /increased oxygen needs Signs/Symptoms as evidenced by NPO; proned state and need for TF support Status Active Problem Clinical Problem Acute Disease or Injury Related Malnutrition Etiology severe protein-calorie malnutrition in the context of acute illness related to inadequate energy/oral intake Signs/Symptoms as evidenced by estimated PO intake meeting <50% of estimated nutritional needs >5 days; unintentional wt loss of 6.9kg/8% x 4 days Status Active Problem Recommendation Dietitian Recommendations/Changes NPO while intubated. When medically indicated, recommend Vital AF 1.2 via OGT at goal rate of 70mL/hour w/ 50mL H2O flush every 4 hours to provide 2016 calories, 126 g protein, and 1662mL free water/day. Would start at 20mL /hour and gradually increase by 10-15mL/hour every 12 hours as tolerated until goal rate 70mL/hr is achieved. Will monitor TF tolerance as established, wt, labs and follow-up with need to adjust TF rate/flushes given initiation of dialysis today. Lab / Micro Data Result Diagrams: 11/22/20 05:10 11/22/20 05:10 Labs: Laboratory Results - last 24 hr 11/21/20 19:09: POC Glucose 193 H 11/21/20 21:56: APTT 94.0 H* 11/21/20 23:44: POC Glucose 243 H 11/22/20 05:10: WBC 11.3 H, Corrected WBC TELEHEALTH CASE MANAGER, RBC 3.58 L, Hgb 10.5 L, Hct 33.0 L , MCV 92.2, MCH 29.3, MCHC 31.8 L, RDW Std Deviation 47.0 H, RDW Coeff of Moses 13.8, Plt Count 217, MPV 11.4, Immature Gran % (Auto) 1.200 H, Neut % (Auto) 87 .8 H, Lymph % (Auto) 4.7 L, [place] % (Auto) 5.9, Eos % (Auto) 0.0, Baso % (Auto) 0.4, Absolute Neuts (auto) 9.9 H, Absolute Lymphs (auto) 0.53 L, Total Counted TELEHEALTH CASE MANAGER, Neutrophils % (Manual) TELEHEALTH CASE MANAGER, Band Neutrophils % TELEHEALTH CASE MANAGER, Lymphocytes % (Manual) TELEHEALTH CASE MANAGER, Monocytes % (Manual) TELEHEALTH CASE MANAGER, Eosinophils % (Manual) TELEHEALTH CASE MANAGER, Basophils % (Manual) TELEHEALTH CASE MANAGER, Metamyelocytes % TELEHEALTH CASE MANAGER, Myelocytes % TELEHEALTH CASE MANAGER, Promyelocytes % TELEHEALTH CASE MANAGER, Blast Cells % TELEHEALTH CASE MANAGER, Plasma Cell % (Manual) TELEHEALTH CASE MANAGER, Other Cells % TELEHEALTH CASE MANAGER, Nucleated RBC % 0, Nucleated RBCs/100 WBC TELEHEALTH CASE MANAGER, Differential Comment TELEHEALTH CASE MANAGER, Diff Path Review May foll, Hypersegmented Neuts TELEHEALTH CASE MANAGER, Atypical Lymphocytes TELEHEALTH CASE MANAGER, Reactive Lymphocytes TELEHEALTH CASE MANAGER, Smudge Cells TELEHEALTH CASE MANAGER, Toxic Granulation TELEHEALTH CASE MANAGER, Toxic Vacuolation TELEHEALTH CASE MANAGER, Dohle Bodies TELEHEALTH CASE MANAGER, Kaya Rods TELEHEALTH CASE MANAGER, Platelet Estimate TELEHEALTH CASE MANAGER, Plt Morphology Comment TELEHEALTH CASE MANAGER, RBC Morphology TELEHEALTH CASE MANAGER, Polychromasia TELEHEALTH CASE MANAGER, Hypochromasia TELEHEALTH CASE MANAGER, Poikilocytosis TELEHEALTH CASE MANAGER, Basophilic Stippling TELEHEALTH CASE MANAGER, Anisocytosis TELEHEALTH CASE MANAGER, Microcytosis TELEHEALTH CASE MANAGER, Macrocytosis TELEHEALTH CASE MANAGER, Spherocytes TELEHEALTH CASE MANAGER, Sickle Cells TELEHEALTH CASE MANAGER, Target Cells TELEHEALTH CASE MANAGER, Tear Drop Cells TELEHEALTH CASE MANAGER, Ovalocytes TELEHEALTH CASE MANAGER, Stomatocytes TELEHEALTH CASE MANAGER, [place] Bodies TELEHEALTH CASE MANAGER, [place] Cells TELEHEALTH CASE MANAGER, Bite Cells TELEHEALTH CASE MANAGER, Crenated Cell TELEHEALTH CASE MANAGER, Acanthocytes (Spur) TELEHEALTH CASE MANAGER, Rouleaux TELEHEALTH CASE MANAGER, Schistocytes TELEHEALTH CASE MANAGER 11/22/20 05:10: Sodium 133 L, Potassium 5.5 H, Chloride 97 L, Carbon Dioxide 25.0, Anion Gap 11, BUN 78 H, Creatinine 6.60 H, Estim Creat Clear Calc 11.08, Est GFR (MDRD) Af Amer 11 L, Est GFR (MDRD) Non-Af 9 L, BUN/Creatinine Ratio 11.8, Glucose 229 H, Calcium 7.2 L, Total Bilirubin 0.60, AST 74 H, ALT 40, Alkaline Phosphatase 66, Total Protein 5.7 L, Albumin 1.4 L, Globulin 4.3 H, Albumin/Globulin Ratio 0.3 L, Triglycerides 344 H 11/22/20 06:33: APTT 83.8 H 11/22/20 06:37: POC Glucose 231 H 11/22/20 11:33: POC Glucose 195 H Micro: Microbiology 11/19/20 01:30 Sputum, Induced/Lukens Gram Stain - Final 11/19/20 01:30 Sputum, Induced/Lukens Respiratory Culture - Preliminary Streptococcus pneumoniae Possible Fungus 11/15/20 15:58 Blood Culture (Wb) - Left Wrist Blood Culture - Final No growth in 5 days. 11/15/20 15:20 Blood Culture (Wb) - Anticubital Right Blood Culture - Final No growth in 5 days. 11/20/20 12:40 Urine Catheter - Edge Streptococcus pneumoniae Antigen (M - Final Streptococcus pneumonia Ag 11/15/20 15:40 Nasal Secretion SARS-CoV-2 Antigen (Rapid) - Final SARS-CoV-2 (COVID 19) Radiography Diagnostic Testing: Radiology Impression Echocardiogram 11/21/20 12:33 Interpretation Summary Left ventricular systolic function is hyperdynamic. The estimated ejection fraction is 75 %. Apical false tendon noted. Trivial mitral valve insufficiency. Mild tricuspid valve insufficiency. Mild diffuse aortic valve thickening. Right ventricular systolic pressure estimated to be 42 mmHg. Unable to assess diastolic dysfunction. Ordering Physician: Calvin Barnes Referring Physician: SOPHIE LANDAVERDE Performed By: Irene Griffith, RDCS, RVT Physical Exam Narrative Physical exam: General: Sedated, intubated, mechanical ventilator HEENT: Atraumatic Oral: Moist Mucosa Neck: Supple Lungs: Diminished to auscultation Cardiovascular: HS I+II, regular, no murmurs Abdomen: Bowel Sounds Present, Soft, Non Tender Extremities: No edema, right big toe looks cyanotic Assessment & Plan Assessment/Plan (1) Type 2 diabetes mellitus: QUALIFIERS: Diabetes mellitus machine long goods helper insulin use: without machine long goods helper use Diabetes mellitus complication status: with other specified complication Qualified Code(s): E11.69 - Type 2 diabetes mellitus with other specified complication (2) Pneumonia due to COVID-19 virus: (3) Acute hypoxemic respiratory failure due to COVID-19: (4) EZEKIEL (acute kidney injury): PLAN: 1. Acute hypoxic respiratory failure secondary to acute COVID-19 pneumonia/ACUTE strep pneumonia Patient was intubated on 11/19/20 [employer] following 2. Acute COVID-19 pneumonia, severe, with respiratory failure Patient is unvaccinated, symptoms started on 11/08 Chest x-ray on shows infiltrates in the mid and lower lungs possibly se condary to edema or pneumonia; similar to previous Continue with dexamethasone, Baracitinib and remdesivir Infectious disease following Sputum cultures are pending 3. Acute streptococcal pneumonia, White cell count is improving, now 11.3 Sputum and urine streptococcal antigen is positive Blood cultures are negative Continue on IV ceftriaxone 4. Hyperkalemia, status post treatment and emergent dialysis Potassium today is 5.5, will be dialyzed today 5. EZEKIEL, prerenal, secondary to #1 and 2, present on admission, improved, worsened from 11/19/20 Started on dialysis 11/20/20 Creatinine currently 6.60, nephrology following Creatinine on admission was 1.41, improved to 0.98 6. Diabetes mellitus type 2, blood sugars are uncontrolled HbA1c 6.8 Hyperglycemia secondary to steroid use Continue on increased Lantus dose of 30 units nightly, continue with insulin sliding scale 7. Arrhythmias, noted 2 days ago, now in normal sinus rhythm Patient had episodes of V. tach/SVT/A. fib with RVR Continue metoprolol, continue amiodarone drip 8. Distributive shock, probable septic shock from #2 and #3 Patient on and off on Levophed Consult to monitor especially on metoprolol Charges/Coding Visit Charges Inpatient E&M: [id number] [facility] Hosp L3
[2020-11-22 14:51] LABS: Partial Thromboplast Time 52.4 Seconds (24.1-36.2)
[2020-11-22] MEDS: Metoprolol Tartrate 50 MG Tablet GT (15:59)
[2020-11-22] MEDS: Propofol 10MG/Ml 1,000 MG/100 ML Bottle 25.7 MG CONT INF ×2 (16:05→18:55)
[2020-11-22] MEDS: Heparin 10,000 UNITS/10 ML Vial IV (16:05)
[2020-11-22 18:41] LABS: Bedside Glucose 130 mg/dL (70-110)
--- NOTE | 2020-11-22 19:07 | PCM.PN.REN ---
Subjective Subjective Following for EZEKIEL. The patient seen during hemodialysis. He is intubated and sedated. Cannot do ROS. He is doing a bit better from the pulmonary standpoint per RN. He is on FiO2 of 0.6. Objective Data Objective Data Vital Signs: Vital Signs Temp Pulse Resp BP Pulse Ox 98.0 F 51 L 16 79/61 L 100 11/22/20 16:00 11/22/20 18:00 11/22/20 18:00 11/22/20 18:45 11/22/20 18:00 Oxygen Flow Rate (L/min) 90 Oxygen Delivery Method Mechanical Ventilator Weight: 85.8 kg Body Mass Index (BMI) 29.2 Intake & Output: Intake and Output for Last 24 Hours 11/20/20 11/21/20 11/22/20 23:59 23:59 23:59 Intake Total 3131.95 / 3218.38 2137.55 / 2238.65 1727.03 / 1727.03 Output Total 830 / 905 185 / 385 310 / 310 Balance 2301.95 / 2313.38 1952.55 / 1853.65 1417.03 / 1417.03 Medical Nutrition Assessment Dietitian: Malnutrition Criteria Met Start: 11/19/20 10:28 Freq: Status: Active Protocol: Document 11/22/20 09:35 BP (Rec: 11/22/20 09:35 BP [id number]) Nutrition Malnutrition Evidence of Malnutrition Exists Yes Malnutrition (severe): Acute Illness/Injury Evidenced By Suboptimal Energy Intake ( Severe),Weight Loss (Severe) Intake Problem Inadequate Oral Intake Etiology related to respiratory failure /increased oxygen needs Signs/Symptoms as evidenced by NPO; proned state and need for TF support Status Active Problem Clinical Problem Acute Disease or Injury Related Malnutrition Etiology severe protein-calorie malnutrition in the context of acute illness related to inadequate energy/oral intake Signs/Symptoms as evidenced by estimated PO intake meeting <50% of estimated nutritional needs >5 days; unintentional wt loss of 6.9kg/8% x 4 days Status Active Problem Recommendation Dietitian Recommendations/Changes NPO while intubated. When medically indicated, recommend Vital AF 1.2 via OGT at goal rate of 70mL/hour w/ 50mL H2O flush every 4 hours to provide 2016 calories, 126 g protein, and 1662mL free water/day. Would start at 20mL /hour and gradually increase by 10-15mL/hour every 12 hours as tolerated until goal rate 70mL/hr is achieved. Will monitor TF tolerance as established, wt, labs and follow-up with need to adjust TF rate/flushes given initiation of dialysis today. Lab / Micro Data Result Diagrams: 11/22/20 05:10 11/22/20 05:10 Labs: Laboratory Results - last 24 hr 11/21/20 19:09: POC Glucose 193 H 11/21/20 21:56: APTT 94.0 H* 11/21/20 23:44: POC Glucose 243 H 11/22/20 05:10: WBC 11.3 H, Corrected WBC CONTACT CENTER REP, RBC 3.58 L, Hgb 10.5 L, Hct 33.0 L, MCV 92.2, MCH 29.3, MCHC 31.8 L, RDW Std Deviation 47.0 H, RDW Coeff of Moses 13.8, Plt Count 217, MPV 11.4, Immature Gran % (Auto) 1.200 H, Neut % (Auto) 87.8 H, Lymph % (Auto) 4.7 L, [place] % (Auto) 5.9, Eos % (Auto) 0.0, Baso % (Auto) 0.4, Absolute Neuts (auto) 9.9 H, Absolute Lymphs (auto) 0.53 L, Total Counted CONTACT CENTER REP, Neutrophils % (Manual) CONTACT CENTER REP, Band Neutrophils % CONTACT CENTER REP, Lymphocytes % (Manual) CONTACT CENTER REP, Monocytes % (Manual) CONTACT CENTER REP, Eosinophils % (Manual) CONTACT CENTER REP, Basophils % (Manual) CONTACT CENTER REP, Metamyelocytes % CONTACT CENTER REP, Myelocytes % CONTACT CENTER REP, Promyelocytes % CONTACT CENTER REP, Blast Cells % CONTACT CENTER REP, Plasma Cell % (Manual) CONTACT CENTER REP, Other Cells % CONTACT CENTER REP, Nucleated RBC % 0, Nucleated RBCs/100 WBC CONTACT CENTER REP, Differential Comment CONTACT CENTER REP, Diff Path Review May foll, Hypersegmented Neuts CONTACT CENTER REP, Atypical Lymphocytes CONTACT CENTER REP, Reactive Lymphocytes CONTACT CENTER REP, Smudge Cells CONTACT CENTER REP, Toxic Granulation CONTACT CENTER REP, Toxic Vacuolation CONTACT CENTER REP, Dohle Bodies CONTACT CENTER REP, Kaya Rods CONTACT CENTER REP, Platelet Estimate CONTACT CENTER REP, Plt Morphology Comment CONTACT CENTER REP, RBC Morphology CONTACT CENTER REP, Polychromasia CONTACT CENTER REP, Hypochromasia CONTACT CENTER REP, Poikilocytosis CONTACT CENTER REP, Basophilic Stippling CONTACT CENTER REP, Anisocytosis CONTACT CENTER REP, Microcytosis CONTACT CENTER REP, Macrocytosis CONTACT CENTER REP, Spherocytes CONTACT CENTER REP, Sickle Cells CONTACT CENTER REP, Target Cells CONTACT CENTER REP, Tear Drop Cells CONTACT CENTER REP, Ovalocytes CONTACT CENTER REP, Stomatocytes CONTACT CENTER REP, [place] Bodies CONTACT CENTER REP, [place] Cells CONTACT CENTER REP, Bite Cells CONTACT CENTER REP, Crenated Cell CONTACT CENTER REP, Acanthocytes (Spur) CONTACT CENTER REP, Rouleaux CONTACT CENTER REP, Schistocytes CONTACT CENTER REP 11/22/20 05:10: Sodium 133 L, Potassium 5.5 H, Chloride 97 L, Carbon Dioxide 25.0, Anion Gap 11, BUN 78 H, Creatinine 6.60 H, Estim Creat Clear Calc 11.08, Est GFR (MDRD) Af Amer 11 L, Est GFR (MDRD) Non-Af 9 L, BUN/Creatinine Ratio 11.8, Glucose 229 H, Calcium 7.2 L, Total Bilirubin 0.60, AST 74 H, ALT 40, Alkaline Phosphatase 66, Total Protein 5.7 L, Albumin 1.4 L, Globulin 4.3 H, Albumin/Globulin Ratio 0.3 L, Triglycerides 344 H 11/22/20 06:33: APTT 83.8 H 11/22/20 06:37: POC Glucose 231 H 11/22/20 11:33: POC Glucose 195 H 11/22/20 14:00: APTT 52.4 H 11/22/20 18:26: POC Glucose 130 H Micro: Microbiology 11/19/20 01:30 Sputum, Induced/Lukens Gram Stain - Final 11/19/20 01:30 Sputum, Induced/Lukens Respiratory Culture - Preliminary Streptococcus pneumoniae Possible Fungus 11/15/20 15:58 Blood Culture (Wb) - Left Wrist Blood Culture - Final No growth in 5 days. 11/15/20 15:20 Blood Culture (Wb) - Anticubital Right Blood Culture - Final No growth in 5 days. 11/20/20 12:40 Urine Catheter - Edge Streptococcus pneumoniae Antigen (M - Final Streptococcus pneumonia Ag 11/15/20 15:40 Nasal Secretion SARS-CoV-2 Antigen (Rapid) - Final SARS-CoV-2 (COVID 19) Physical Exam Narrative General: Sedated on ventilator. HEENT: Intubated. Heart: Sinus rhythm on telemetry. Lungs: Coarse breath sound bilaterally. Abdomen: Soft, nontender no guarding or rebound. Extremity: 2+ edema lower extremity. Assessment & Plan Assessment/Plan (1) EZEKIEL (acute kidney injury): PLAN: -EZEKIEL with normal baseline creatinine in setting of COVID-19 pneumonia and acute hypoxic respiratory failure. Creatinine on admission, 11/15/2020 1.41 mg/dL -->11/18 creatinine 0.98 mg/dL. Creatinine began to up-trend on 11/19 Cr 1.33 mg/dL --> 11/20 Cr 4.6 mg/dL, potassium peaked 6.6. -Patient underwent 1st HD session on 11/20 on 1K bath and ran 1.5L positive. Labs today Cr 4.89, K+ 5.4, Patient had HD again Tuesday morning on 2kbath but only tolerated 2hours 10minutes. HD terminated as patient having difficulty with ET tube and also noted mottling of lower legs. BP dropped towards end of HD session, he ran positive 250ml. Now on levophed. -I supervised the third dialysis treatment today. We should be able to get off about 700 mL with ultrafiltration. -Used 2 mEq potassium dialysate for hyperkalemia. -Recheck renal function, volume status and electrolytes again tomorrow. The patient may need dialysis again tomorrow given his catabolic state. (2) Hyperkalemia: (3) Hypotension: (4) Acute hypoxemic respiratory failure due to COVID-19: (5) Pneumonia due to COVID-19 virus:
[2020-11-22] MEDS: Vital AF 1.2 Cal Liquid 1,000 ML 20 ML GT (20:58)
[2020-11-22 21:41] LABS: Bedside Glucose 171 mg/dL (70-110)
[2020-11-22] MEDS: Propofol 10MG/Ml 1,000 MG/100 ML Bottle 23.2 MG CONT INF (22:54)
[2020-11-23] VITALS (26 sets, daily range): BP systolic 94–187; BP diastolic 54–88; PULSE 26–84; RESP 14–36; TEMP 36–37.1; O2SAT 79–97
[2020-11-23 00:05] LABS: Partial Thromboplast Time 40.6 Seconds (24.1-36.2)
[2020-11-23] MEDS: Insulin Lispro 100 UNIT/ML INSULN.PEN SC ×3 (00:41→12:39)
[2020-11-23] MEDS: Heparin Injection (Vial) 5,000 UNIT/ML VIAL IV ×2 (00:41→07:47)
[2020-11-23 01:11] LABS: Bedside Glucose 190 mg/dL (70-110)
[2020-11-23] MEDS: Propofol 10MG/Ml 1,000 MG/100 ML Bottle 23.2 MG CONT INF ×4 (01:28→14:30)
--- NOTE | 2020-11-23 07:13 | PN.CC_ITS ---
Assessment & Plan Assessment/Plan (1) Pneumonia due to COVID-19 virus: (2) Acute hypoxemic respiratory failure due to COVID-19: (3) Type 2 diabetes mellitus: QUALIFIERS: Diabetes mellitus complication status: with other specified complication Diabetes mellitus nursing home insulin use: without termite helper use Qualified Code(s): E11.69 - Type 2 diabetes mellitus with other specified complication PLAN: RECOMMENDATIONS: 1. Continue patient on assist control mode of mechanical ventilation. 2. Wean FiO2/PEEP to maintain oxygen saturations at or above 90%. 3. Maintain plateau pressures less than 30 if feasible. 4. Continue with hemodialysis per nephrology recommendations. 5. Continue antimicrobials as ordered. 6. Continue Decadron to complete 10-day treatment course. 7. Continue heparin infusion as ordered. 8. Continue tube feeds as tolerated. 9. Continue appropriate ICU prophylaxis. IMPRESSIONS: 1. Acute hypoxic respiratory failure secondary to COVID-19 and superimposed pneumococcal pneumonia Given escalating oxygen requirements, the patient was transferred to the ICU on the morning of November 17. Despite the use of noninvasive positive pressure ventilatory support, the patient continued to decompensate from a respiratory perspective, ultimately requiring intubation on November 19. The patient will be continued on assist control mode of mechanical ventilation. FiO2 and PEEP will be weaned as tolerated. Goal to maintain plateau pressures less than 30. The patient has tolerated periods of proning with improvement in his oxygenation status. Although the patient initially had a negative CTA for the presence of PE on November 15, in light of his worsening respiratory status, a repeat D-dimer was obtained on November 21 and found to be elevated to 16. Given that his renal insufficiency precluded our ability to obtain a repeat CTA chest, the patient was placed empirically on a continuous heparin infusion. Remdesivir and baricitinib were discontinued due to renal insufficiency as well. The patient will be continued on Decadron and heparin as ordered. 2. Acute kidney injury Likely prerenal in etiology and/or related to ATN in the setting #1. Nephrology is currently following plans for hemodialysis today. 3. Supraventricular tachycardia The patient did develop SVT during his hospitalization, which was unstable at times and required attempts at cardioversion in the use of antiarrhythmics and beta-blockers. This has improved. For now, we'll plan to continue metoprolol twice daily. 4. Diabetes mellitus/overweight/unvaccinated status Complicates care, management, recovery and prognosis. Continue sliding scale insulin coverage. TIME: 33 minutes of critical care time, independent of procedures, was spent addressing the patient's acute hypoxemic respiratory failure secondary to COVID- 19 pneumonia, acute kidney injury, SVT, review of all data and collaboration with the care team. ([id number]) Subjective Subjective The patient was seen and examined at the bedside this morning. Events from the last 24 hours have been reviewed. The patient is currently afebrile, hemodynamically stable and maintaining appropriate oxygen saturations on assist control mode of mechanical ventilation with an FiO2 requirement of 50% and PEEP of 12. The patient is currently documented to be overall net +7 L for the hospital admission. He did tolerate dialysis yesterday with 700 mL of fluid removed. The patient remains sedated on fentanyl and propofol. He remains on a continuous heparin infusion. Triglycerides are stable. Objective Data Objective Data The patient's most recent lab work, culture data and imaging studies have all been personally reviewed. Rapid coronavirus antigen testing was positive on November 15. Blood cultures have shown no growth to date. Streptococcus urinary antigen was positive. Sputum culture was also positive for Streptococcus pneumonia. Vital Signs: Vital Signs Temp Pulse Resp BP Pulse Ox 98.4 F 54 L 16 102/57 L 89 11/23/20 04:00 11/23/20 06:00 11/23/20 06:00 11/23/20 06:00 11/23/20 06:00 Oxygen Flow Rate (L/min) 90 Oxygen Delivery Method Mechanical Ventilator Weight: 85.6 kg Body Mass Index (BMI) 29.2 Intake & Output: Intake and Output for Last 24 Hours 11/21/20 11/22/20 11/23/20 23:59 23:59 23:59 Intake Total 2137.55 / 2238.65 2090.43 / 2355.90 618.83 / 618.83 Output Total 185 / 385 1018 / 1018 0 / 0 Balance 1952.55 / 1853.65 1072.43 / 1337.90 618.83 / 618.83 Medical Nutrition Assessment Dietitian: Malnutrition Criteria Met Start: 11/19/20 10:28 Freq: Status: Active Protocol: Document 11/22/20 09:35 BP (Rec: 11/22/20 09:35 BP [id number]) Nutrition Malnutrition Evidence of Malnutrition Exists Yes Malnutrition (severe): Acute Illness/Injury Evidenced By Suboptimal Energy Intake ( Severe),Weight Loss (Severe) Intake Problem Inadequate Oral Intake Etiology related to respiratory failure /increased oxygen needs Signs/Symptoms as evidenced by NPO; proned state and need for TF support Status Active Problem Clinical Problem Acute Disease or Injury Related Malnutrition Etiology severe protein-calorie malnutrition in the context of acute illness related to inadequate energy/oral intake Signs/Symptoms as evidenced by estimated PO intake meeting <50% of estimated nutritional needs >5 days; unintentional wt loss of 6.9kg/8% x 4 days Status Active Problem Recommendation Dietitian Recommendations/Changes NPO while intubated. When medically indicated, recommend Vital AF 1.2 via OGT at goal rate of 70mL/hour w/ 50mL H2O flush every 4 hours to provide 2016 calories, 126 g protein, and 1662mL free water/day. Would start at 20mL /hour and gradually increase by 10-15mL/hour every 12 hours as tolerated until goal rate 70mL/hr is achieved. Will monitor TF tolerance as established, wt, labs and follow-up with need to adjust TF rate/flushes given initiation of dialysis today. Lab / Micro Data Attestation: I reviewed the patient's lab results. Result Diagrams: 11/23/20 06:53 11/23/20 06:53 Labs: Laboratory Results - last 24 hr 11/22/20 05:10: WBC 11.3 H, Corrected WBC PROFESSIONAL DEVELOPMENT INSTRUCTOR, RBC 3.58 L, Hgb 10.5 L, Hct 33.0 L , MCV 92.2, MCH 29.3, MCHC 31.8 L, RDW Std Deviation 47.0 H, RDW Coeff of Moses 13.8, Plt Count 217, MPV 11.4, Immature Gran % (Auto) 1.200 H, Neut % (Auto) 87.8 H, Lymph % (Auto) 4.7 L, [place] % (Auto) 5.9, Eos % (Auto) 0.0, Baso % (Auto) 0.4, Absolute Neuts (auto) 9.9 H, Absolute Lymphs (auto) 0.53 L, Total Counted PROFESSIONAL DEVELOPMENT INSTRUCTOR, Neutrophils % (Manual) PROFESSIONAL DEVELOPMENT INSTRUCTOR, Band Neutrophils % PROFESSIONAL DEVELOPMENT INSTRUCTOR, Lymphocytes % (Manual) PROFESSIONAL DEVELOPMENT INSTRUCTOR, Monocytes % (Manual) PROFESSIONAL DEVELOPMENT INSTRUCTOR, Eosinophils % (Manual) PROFESSIONAL DEVELOPMENT INSTRUCTOR, Basophils % (Manual) PROFESSIONAL DEVELOPMENT INSTRUCTOR, Metamyelocytes % PROFESSIONAL DEVELOPMENT INSTRUCTOR, Myelocytes % PROFESSIONAL DEVELOPMENT INSTRUCTOR, Promyelocytes % PROFESSIONAL DEVELOPMENT INSTRUCTOR, Blast Cells % PROFESSIONAL DEVELOPMENT INSTRUCTOR, Plasma Cell % (Manual) PROFESSIONAL DEVELOPMENT INSTRUCTOR, Other Cells % PROFESSIONAL DEVELOPMENT INSTRUCTOR, Nucleated RBC % 0, Nucleated RBCs/100 WBC PROFESSIONAL DEVELOPMENT INSTRUCTOR, Differential Comment PROFESSIONAL DEVELOPMENT INSTRUCTOR, Diff Path Review May foll, Hypersegmented Neuts PROFESSIONAL DEVELOPMENT INSTRUCTOR, Atypical Lymphocytes PROFESSIONAL DEVELOPMENT INSTRUCTOR, Reactive Lymphocytes PROFESSIONAL DEVELOPMENT INSTRUCTOR, Smudge Cells PROFESSIONAL DEVELOPMENT INSTRUCTOR, Toxic Granulation PROFESSIONAL DEVELOPMENT INSTRUCTOR, Toxic Vacuolation PROFESSIONAL DEVELOPMENT INSTRUCTOR, Dohle Bodies PROFESSIONAL DEVELOPMENT INSTRUCTOR, Kaya Rods PROFESSIONAL DEVELOPMENT INSTRUCTOR, Platelet Estimate PROFESSIONAL DEVELOPMENT INSTRUCTOR, Plt Morphology Comment PROFESSIONAL DEVELOPMENT INSTRUCTOR, RBC Morphology PROFESSIONAL DEVELOPMENT INSTRUCTOR, Polychromasia PROFESSIONAL DEVELOPMENT INSTRUCTOR, Hypochromasia PROFESSIONAL DEVELOPMENT INSTRUCTOR, Poikilocytosis PROFESSIONAL DEVELOPMENT INSTRUCTOR, Basophilic Stippling PROFESSIONAL DEVELOPMENT INSTRUCTOR, Anisocytosis PROFESSIONAL DEVELOPMENT INSTRUCTOR, Microcytosis PROFESSIONAL DEVELOPMENT INSTRUCTOR, Macrocytosis PROFESSIONAL DEVELOPMENT INSTRUCTOR, Spherocytes PROFESSIONAL DEVELOPMENT INSTRUCTOR, Sickle Cells PROFESSIONAL DEVELOPMENT INSTRUCTOR, Target Cells PROFESSIONAL DEVELOPMENT INSTRUCTOR, Tear Drop Cells PROFESSIONAL DEVELOPMENT INSTRUCTOR, Ovalocytes PROFESSIONAL DEVELOPMENT INSTRUCTOR, Stomatocytes PROFESSIONAL DEVELOPMENT INSTRUCTOR, Baer-[place] Bodies PROFESSIONAL DEVELOPMENT INSTRUCTOR, [place] Cells PROFESSIONAL DEVELOPMENT INSTRUCTOR, Bite Cells PROFESSIONAL DEVELOPMENT INSTRUCTOR, Crenated Cell PROFESSIONAL DEVELOPMENT INSTRUCTOR, Acanthocytes (Spur) PROFESSIONAL DEVELOPMENT INSTRUCTOR, Rouleaux PROFESSIONAL DEVELOPMENT INSTRUCTOR, Schistocytes PROFESSIONAL DEVELOPMENT INSTRUCTOR 11/22/20 05:10: Sodium 133 L, Potassium 5.5 H, Chloride 97 L, Carbon Dioxide 25.0, Anion Gap 11, BUN 78 H, Creatinine 6.60 H, Estim Creat Clear Calc 11.08, Est GFR (MDRD) Af Amer 11 L, Est GFR (MDRD) Non-Af 9 L, BUN/Creatinine Ratio 11.8, Glucose 229 H, Calcium 7.2 L, Total Bilirubin 0.60, AST 74 H, ALT 40, Alkaline Phosphatase 66, Total Protein 5.7 L, Albumin 1.4 L, Globulin 4.3 H, Albumin/Globulin Ratio 0.3 L, Triglycerides 344 H 11/22/20 06:37: POC Glucose 231 H 11/22/20 11:33: POC Glucose 195 H 11/22/20 14:00: APTT 52.4 H 11/22/20 18:26: POC Glucose 130 H 11/22/20 20:49: POC Glucose 171 H 11/22/20 23:40: APTT 40.6 H 11/23/20 00:29: POC Glucose 190 H Micro: Microbiology 11/19/20 01:30 Sputum, Induced/Lukens Gram Stain - Final 11/19/20 01:30 Sputum, Induced/Lukens Respiratory Culture - Preliminary Streptococcus pneumoniae Possible Fungus 11/15/20 15:58 Blood Culture (Wb) - Left Wrist Blood Culture - Final No growth in 5 days. 11/15/20 15:20 Blood Culture (Wb) - Anticubital Right Blood Culture - Final No growth in 5 days. 11/20/20 12:40 Urine Catheter - Edge Streptococcus pneumoniae Antigen (M - Final Streptococcus pneumonia Ag 11/15/20 15:40 Nasal Secretion SARS-CoV-2 Antigen (Rapid) - Final SARS-CoV-2 (COVID 19) Physical Exam Const General Appearance: ill appearing, intubated and patient mechanically ventilated HEENT normocephalic and head/scalp atraumatic Mouth: endotracheal tube in place and OG tube in place Eyes PERRL and EOMs intact bilaterally Neck supple General: trachea midline and CVC in place Chest inspection of chest normal Resp Auscultation: diminished lung sounds; Negative for rales, rhonchi or wheezes Cardio regular rate, regular rhythm, S1 normal heart sound, S2 normal heart sound and no murmurs GI normal to inspection, nondistended, normoactive bowel sounds Extremity no clubbing, cyanosis or edema Skin no rashes or lesions noted Neuro Sensorium / Orientation: sedated on vent Charges/Coding Procedures Hospitalists Procedures: [id number] Critial Care 1st Hr
--- NOTE | 2020-11-23 07:33 | PN.HOSP_ITS ---
Subjective Subjective Patient was seen and examined. No acute events overnight. Oxygen requirements appear to improve in the prone position. Noted patient has purplish discoloration to the toes. Objective Data Objective Data Vital Signs: Vital Signs Temp Pulse Resp BP Pulse Ox 98.4 F 54 L 16 100/54 L 89 11/23/20 04:00 11/23/20 07:00 11/23/20 07:00 11/23/20 07:00 11/23/20 07:00 Oxygen Flow Rate (L/min) 90 Oxygen Delivery Method Mechanical Ventilator Weight: 85.6 kg Body Mass Index (BMI) 29.2 Intake & Output: Intake and Output for Last 24 Hours 11/21/20 11/22/20 11/23/20 23:59 23:59 23:59 Intake Total 2137.55 / 2238.65 2090.43 / 2355.90 618.83 / 618.83 Output Total 185 / 385 1018 / 1018 0 / 0 Balance 1952.55 / 1853.65 1072.43 / 1337.90 618.83 / 618.83 Medical Nutrition Assessment Dietitian: Malnutrition Criteria Met Start: 11/19/20 10:28 Freq: Status: Active Protocol: Document 11/22/20 09:35 BP (Rec: 11/22/20 09:35 BP [id number]) Nutrition Malnutrition Evidence of Malnutrition Exists Yes Malnutrition (severe): Acute Illness/Injury Evidenced By Suboptimal Energy Intake ( Severe),Weight Loss (Severe) Intake Problem Inadequate Oral Intake Etiology related to respiratory failure /increased oxygen needs Signs/Symptoms as evidenced by NPO; proned state and need for TF support Status Active Problem Clinical Problem Acute Disease or Injury Related Malnutrition Etiology severe protein-calorie malnutrition in the context of acute illness related to inadequate energy/oral intake Signs/Symptoms as evidenced by estimated PO intake meeting <50% of estimated nutritional needs >5 days; unintentional wt loss of 6.9kg/8% x 4 days Status Active Problem Recommendation Dietitian Recommendations/Changes NPO while intubated. When medically indicated, recommend Vital AF 1.2 via OGT at goal rate of 70mL/hour w/ 50mL H2O flush every 4 hours to provide 2016 calories, 126 g protein, and 1662mL free water/day. Would start at 20mL /hour and gradually increase by 10-15mL/hour every 12 hours as tolerated until goal rate 70mL/hr is achieved. Will monitor TF tolerance as established, wt, labs and follow-up with need to adjust TF rate/flushes given initiation of dialysis today. Lab / Micro Data Result Diagrams: 11/23/20 06:53 11/23/20 06:53 Labs: Laboratory Results - last 24 hr 11/22/20 05:10: WBC 11.3 H, Corrected WBC MACHINE APPLICATOR CEMENTER, RBC 3.58 L, Hgb 10.5 L, Hct 33.0 L , MCV 92.2, MCH 29.3, MCHC 31.8 L, RDW Std Deviation 47.0 H, RDW Coeff of Moses 13.8, Plt Count 217, MPV 11.4, Immature Gran % (Auto) 1.200 H, Neut % (Auto) 87 .8 H, Lymph % (Auto) 4.7 L, [place] % (Auto) 5.9, Eos % (Auto) 0.0, Baso % (Auto) 0.4, Absolute Neuts (auto) 9.9 H, Absolute Lymphs (auto) 0.53 L, Total Counted MACHINE APPLICATOR CEMENTER, Neutrophils % (Manual) MACHINE APPLICATOR CEMENTER, Band Neutrophils % MACHINE APPLICATOR CEMENTER, Lymphocytes % (Manual) MACHINE APPLICATOR CEMENTER, Monocytes % (Manual) MACHINE APPLICATOR CEMENTER, Eosinophils % (Manual) MACHINE APPLICATOR CEMENTER, Basophils % (Manual) MACHINE APPLICATOR CEMENTER, Metamyelocytes % MACHINE APPLICATOR CEMENTER, Myelocytes % MACHINE APPLICATOR CEMENTER, Promyelocytes % MACHINE APPLICATOR CEMENTER, Blast Cells % MACHINE APPLICATOR CEMENTER, Plasma Cell % (Manual) MACHINE APPLICATOR CEMENTER, Other Cells % MACHINE APPLICATOR CEMENTER, Nucleated RBC % 0, Nucleated RBCs/100 WBC MACHINE APPLICATOR CEMENTER, Differential Comment MACHINE APPLICATOR CEMENTER, Diff Path Review May foll, Hypersegmented Neuts MACHINE APPLICATOR CEMENTER, Atypical Lymphocytes MACHINE APPLICATOR CEMENTER, Reactive Lymphocytes MACHINE APPLICATOR CEMENTER, Smudge Cells MACHINE APPLICATOR CEMENTER, Toxic Granulation MACHINE APPLICATOR CEMENTER, Toxic Vacuolation MACHINE APPLICATOR CEMENTER, Dohle Bodies MACHINE APPLICATOR CEMENTER, Kaya Rods MACHINE APPLICATOR CEMENTER, Platelet Estimate MACHINE APPLICATOR CEMENTER, Plt Morphology Comment MACHINE APPLICATOR CEMENTER, RBC Morphology MACHINE APPLICATOR CEMENTER, Polychromasia MACHINE APPLICATOR CEMENTER, Hypochromasia MACHINE APPLICATOR CEMENTER, Poikilocytosis MACHINE APPLICATOR CEMENTER, Basophilic Stippling MACHINE APPLICATOR CEMENTER, Anisocytosis MACHINE APPLICATOR CEMENTER, Microcytosis MACHINE APPLICATOR CEMENTER, Macrocytosis MACHINE APPLICATOR CEMENTER, Spherocytes MACHINE APPLICATOR CEMENTER, Sickle Cells MACHINE APPLICATOR CEMENTER, Target Cells MACHINE APPLICATOR CEMENTER, Tear Drop Cells MACHINE APPLICATOR CEMENTER, Ovalocytes MACHINE APPLICATOR CEMENTER, Stomatocytes MACHINE APPLICATOR CEMENTER, Baer-[place] Bodies MACHINE APPLICATOR CEMENTER, [place] Cells MACHINE APPLICATOR CEMENTER, Bite Cells MACHINE APPLICATOR CEMENTER, Crenated Cell MACHINE APPLICATOR CEMENTER, Acanthocytes (Spur) MACHINE APPLICATOR CEMENTER, Rouleaux MACHINE APPLICATOR CEMENTER, Schistocytes MACHINE APPLICATOR CEMENTER 11/22/20 05:10: Sodium 133 L, Potassium 5.5 H, Chloride 97 L, Carbon Dioxide 25.0, Anion Gap 11, BUN 78 H, Creatinine 6.60 H, Estim Creat Clear Calc 11.08, Est GFR (MDRD) Af Amer 11 L, Est GFR (MDRD) Non-Af 9 L, BUN/Creatinine Ratio 11.8, Glucose 229 H, Calcium 7.2 L, Total Bilirubin 0.60, AST 74 H, ALT 40, Alkaline Phosphatase 66, Total Protein 5.7 L, Albumin 1.4 L, Globulin 4.3 H, Albumin/Globulin Ratio 0.3 L, Triglycerides 344 H 11/22/20 06:37: POC Glucose 231 H 11/22/20 11:33: POC Glucose 195 H 11/22/20 14:00: APTT 52.4 H 11/22/20 18:26: POC Glucose 130 H 11/22/20 20:49: POC Glucose 171 H 11/22/20 23:40: APTT 40.6 H 11/23/20 00:29: POC Glucose 190 H Micro: Microbiology 11/19/20 01:30 Sputum, Induced/Lukens Gram Stain - Final 11/19/20 01:30 Sputum, Induced/Lukens Respiratory Culture - Preliminary Streptococcus pneumoniae Possible Fungus 11/15/20 15:58 Blood Culture (Wb) - Left Wrist Blood Culture - Final No growth in 5 days. 11/15/20 15:20 Blood Culture (Wb) - Anticubital Right Blood Culture - Final No growth in 5 days. 11/20/20 12:40 Urine Catheter - Edge Streptococcus pneumoniae Antigen (M - Final Streptococcus pneumonia Ag 11/15/20 15:40 Nasal Secretion SARS-CoV-2 Antigen (Rapid) - Final SARS-CoV-2 (COVID 19) Physical Exam Narrative Physical exam: General: Sedated, intubated, mechanical ventilator HEENT: Atraumatic Oral: Moist Mucosa Neck: Supple Lungs: Diminished to auscultation Cardiovascular: HS I+II, regular, no murmurs Abdomen: Bowel Sounds Present, Soft, Non Tender Extremities: No edema, bilateral 1st-3rd toes look purplish Assessment & Plan Assessment/Plan (1) Type 2 diabetes mellitus: QUALIFIERS: Diabetes mellitus terminal operations supervisor insulin use: without jail use Diabetes mellitus complication status: with other specified complication Qualified Code(s): E11.69 - Type 2 diabetes mellitus with other specified complication (2) Pneumonia due to COVID-19 virus: (3) Acute hypoxemic respiratory failure due to COVID-19: (4) EZEKIEL (acute kidney injury): PLAN: 1. Acute hypoxic respiratory failure secondary to acute COVID-19 pneumonia/ACUTE strep pneumonia Patient was intubated on 11/19/20 Steel Sampler following 2. Acute COVID-19 pneumonia, severe, with respiratory failure Patient is unvaccinated, symptoms started on 11/08 Chest x-ray on 11/19/20 shows infiltrates in the mid and lower lungs possibly secondary to edema or pneumonia; similar to previous Continue with dexamethasone. Off Baracitinib and remdesivir with start of EZEKIEL Infectious disease following Sputum cultures also showed strep pneumo, possible fungal 3. Acute streptococcal pneumonia, White cell count is 16.0 from 11.3 Sputum and urine streptococcal antigen is positive Blood cultures are negative Continue on IV ceftriaxone 4. Hyperkalemia, status post treatment and emergent dialysis Potassium today is 4.7 Will follow up with nephrology about dialysis 5. EZEKIEL, prerenal, secondary to #1 and 2, present on admission, improved, worsened from 11/19/20 Started on dialysis 11/20/20 Creatinine currently 5.21, nephrology following Creatinine on admission was 1.41, improved to 0.98, then worsened 6. Diabetes mellitus type 2, blood sugars are uncontrolled HbA1c 6.8 Hyperglycemia secondary to steroid use Continue on increased Lantus dose of 30 units nightly, continue with insulin sliding scale 7. Arrhythmias, noted 2 days ago, now in normal sinus rhythm, slightly bradycardic Patient had episodes of V. tach/SVT/A. fib with RVR 2D echo showed EF of 75%, trivial valvular disease Continue metoprolol, heparin drip, Off amiodarone drip 8. Distributive shock, probable septic shock from #2 and #3 Patient on and off on Levophed Consult to monitor especially on metoprolol Charges/Coding Visit Charges Inpatient E&M: 71693 Subs Hosp L3
[2020-11-23 07:35] LABS: Partial Thromboplast Time 44.3 Seconds (24.1-36.2)
[2020-11-23 07:40] LABS: Absolute Lymphocyte Count 0.49 X10^3/uL (0.83-4.51); Absolute Neutrophil Count 13.8 X10^3/uL (2.0-7.7); Basophil# 0.06 X10^3/uL; Basophil% 0.4 % (0-1); Hematocrit 34.2 % (40-54); Hemoglobin 11.5 g/dL (13.0-16.5); Lymphocyte # 0.49 X10^3/ul (0.83-4.51); Lymphocyte % 3.1 % (19-41); Mean Corp Hgb Conc 33.6 g/dL (32-36); Mean Corpuscular Hgb 29.3 pg (27.0-32.0); Mean Corpuscular Volume 87.2 fL (80-94); Mean Platelet Vol. 11.8 fl (6.2-12.0); Monocyte# 1.26 X10^3/uL; Monocyte% 7.9 % (0-10); NRBC Flagged by Analyzer 0 % (0-5); Neutrophil # 13.83 X10^3/uL (2.7-7.7); Neutrophil % 86.2 % (47-70); POSITIVE DIFFERENTIAL YES; POSITIVE MORPHOLOGY YES; Platelet Count 251 K/mm3 (150-450); RBC Distribution Width CV 14.1 % (11.6-14.6); RBC Distribution Width SD 45.4 fl (35.1-43.9); Red Blood Count 3.92 M/mm3 (4.6-6.2)
[2020-11-23 07:43] LABS: Differential Indicated SCAN CRITERIA MET
[2020-11-23 07:46] LABS: Albumin, Serum 1.4 g/dL (3.2-5.0); BUN 66 mg/dL (7-18); BUN/Creat Ratio 12.5 RATIO (10-20); Calcium,Total 6.9 mg/dL (8.5-10.1); Chloride 95 mmol/L (98-107); Creatinine, Serum 5.29 mg/dL (0.70-1.30); EST Glomerular Filtration Rate 12 mL/min (>60); Est Glom Filt Rate - Afr Amer 14 mL/min (>60); Estimated Creatinine Clearance 13.83 ml/min; Glucose 220 mg/dL (74-106); Phosphorus 8.5 mg/dL (2.5-4.9); Potassium 4.7 mmol/L (3.5-5.1); Sodium Level 135 mmol/L (136-145)
[2020-11-23 08:18] LABS: ALB/GLOB Ratio 0.3 RATIO (0.9-2.4); AST(SGOT) 59 U/L (15-37); Alanine Aminotransfer ALT/SGPT 39 U/L (16-61); Alkaline Phosphatase 95 U/L (45-117); Globulin 4.7 g/dL (2.2-4.2); Protein, Total 6.1 g/dL (6.4-8.2)
[2020-11-23] MEDS: Senna/Docusate Sodium 1 Tablet PO (08:28)
[2020-11-23] MEDS: Cholecalciferol (VIT D3) 25 MCG TABLET (1,000 UNITS) GT (08:28)
[2020-11-23] MEDS: Famotidine 20 MG Tablet GT ×2 (08:28)
[2020-11-23] MEDS: HEPARIN/D5w 25,000 UNITS 25,000 UNITS/250 ML IV.SOLN. 13 UNITS IV (08:29)
[2020-11-23] MEDS: Chlorhexidine 15 ML PO (08:30)
[2020-11-23] MEDS: CHLORHEXIDINE GLUC 2% CLOTH 1 EACH TOWELETTE TOPICAL (08:30)
[2020-11-23] MEDS: dexAMETHasone 10 MG/ML Vial 6 MG IV (08:31)
[2020-11-23] MEDS: Metoprolol Tartrate 25 MG Tablet GT (08:38)
[2020-11-23 12:55] LABS: Bedside Glucose 269 mg/dL (70-110)
[2020-11-23] MEDS: Propofol 10MG/Ml 1,000 MG/100 ML Bottle 25.7 MG CONT INF (16:05)
--- NOTE | 2020-11-23 17:00 | RAD_ITS ---
We are attempting to reach an attending provider to discuss findings. An addendum with communication details will be sent when the communication is complete. INDICATION: absent lung sds, desat EXAMINATION/TECHNIQUE: X-RAY - XR Chest 1 View COMPARISON: 11/21/2020. FINDINGS: Interval collapse of the right lung. Unchanged opacities throughout the left lung. The cardiomediastinal silhouette is stable. Unchanged position of lines and tubes. New right-sided pneumothorax with maximal airgap of 6 cm. No evidence of mediastinal shift. The osseous structures are unchanged. RAD/Chest 1 View (Portable) IMPRESSION: New right-sided pneumothorax with maximal airgap of 6 cm and interval collapse of the right lung. No evidence of mediastinal shift. Electronically Signed: Derian Herrmann MD at 17:30 EDT Tel , Service support ,
[2020-11-23] MEDS: Morphine 4 MG/ML Syringe IV (18:15)
[2020-11-23] MEDS: LORazepam 2 MG/ML Syringe IV (18:15)
--- NOTE | 2020-11-24 12:56 | PCM.DEATH ---
Preliminary Cause of Preliminary Cause of Preliminary Cause of : Acute hypoxic respiratory failure secondary to acute COVID-19 pneumonia Acute large right pneumothorax Date of Admission: 11/15/20 Date of : 11/23/20 Principle Diagnosis Acute hypoxic respiratory failure secondary to acute COVID-19 pneumonia Acute streptococcal pneumonia Acute kidney injury Supraventricular tachycardia A. fib with RVR Type II DM Problem List: Active and Suspected Problems (Updated 11/21/20 @ 14:12 by Katie Jonas NP-C) Acute hypoxemic respiratory failure due to COVID-19 (Acute) Pneumonia due to COVID-19 virus (Acute) Hyperkalemia (Acute) EZEKIEL (acute kidney injury) (Acute) Hypotension (Acute) Type 2 diabetes mellitus (Acute) Hospital Course 65-year-old male, with past history of type II DM, unvaccinated, who presents with progressive shortness of breath. Patient has had a long and tortuous hospital course. He initially was on 3 L of oxygen and rapidly declined to 11 L of oxygen. Patient initially was started on dexamethasone and remdesivir. He was started on baricitinib on 11/17/20. Patient's respiratory status worsened, he was progressed to BiPAP and air Vo. He was then transferred to ICU on 11/17/20. Patient was intubated on 11/18/20 when he presented with progressive respiratory decline. He was noted to have global acute kidney injury. Remdesivir and Baracitinib were stopped. Nephrology was consulted. Patient was started on dialysis. He was found to have pneumococcal pneumonia and was managed on IV ceftriaxone. Patient was noted on the afternoon of 11/23/20 to have decreased breath sounds on the right. Stat x-ray showed acute large right pneumothorax. Upon discussion with family at the bedside, family decided to withdraw care. Time of was 1825 on 11/23/20 Assessment & Plan Assessment/Plan (1) Acute hypoxemic respiratory failure due to COVID-19: (2) Pneumonia due to COVID-19 virus: (3) Hyperkalemia: (4) EZEKIEL (acute kidney injury): (5) Hypotension: QUALIFIERS: Hypotension type: unspecified hypotension type Qualified Code(s): I95.9 - Hypotension, unspecified (6) Type 2 diabetes mellitus: QUALIFIERS: Diabetes mellitus termite inspector insulin use: without termite inspector use Diabetes mellitus complication status: with other specified complication Qualified Code(s): E11.69 - Type 2 diabetes mellitus with other specified complication (7) Pneumothorax: QUALIFIERS: Pneumothorax type: spontaneous, primary Qualified Code(s): J93.11 - Primary spontaneous pneumothorax Visit Charges Inpatient E&M: 83520 Disch Hosp
[2020-11-24 14:11] LABS: Pathologist Review Reviewed
== END 2020-11-23 20:19 | DRG 208 ==
LOC: ED 17:05 → MS3 20:20 → ICU 11-17 09:21
PROVIDERS: Family Medicine; Internal Medicine Critical Care Medicine; Internal Medicine Infectious Disease; Internal Medicine Nephrology; Admitting Provider Internal Medicine; Emergency Provider Emergency Medicine; PCP Family Medicine; Visit Provider Internal Medicine
DX: U07.1 COVID-19 (principal); E43 Unspecified severe protein-calorie malnutrition; J12.82 Pneumonia due to coronavirus disease 2019; J96.01 Acute respiratory failure with hypoxia; J13 Pneumonia due to Streptococcus pneumoniae; R65.21 Severe sepsis with septic shock; I47.1 Supraventricular tachycardia; N17.9 Acute kidney failure, unspecified; I47.2 Ventricular tachycardia; J93.11 Primary spontaneous pneumothorax; E11.65 Type 2 diabetes mellitus with hyperglycemia; T38.0X5A Adverse effect of glucocorticoids and synthetic analogues, initial encounter; Y92.239 Unspecified place in hospital as the place of occurrence of the external cause; I48.91 Unspecified atrial fibrillation; F40.240 Claustrophobia; E87.5 Hyperkalemia; E66.3 Overweight; Z68.29 Body mass index [BMI] 29.0-29.9, adult; Z79.84 Long term (current) use of oral hypoglycemic drugs
CPT/HCPCS: 31500; 31720; 36415; 36600; 71045; 71275; 74018; 80048; 80053; 80069; 82247; 82550; 82728; 82803; 82962; 83036; 83605; 83615; 83735; 84075; 84100; 84145; 84156; 84450; 84460; 84478; 84484; 85025; 85027; 85379; 85610; 85730; 86140; 86706; 87040; 87070; 87077; 87186; 87205; 87340; 87426; 87449; 90937; 93005; 93306; 94002; 94003; 94660; 94762; 97802; 97803; 99251; 99284; J7040; J7050; Q9967; A4216; C1752; G0257; G0463; J0153; J0330; J0610; J0696; J3010